=== PATIENT | male | born 1960 | race Caucasian/White ===

== ENCOUNTER 2023-11-12 08:45 | Outpatient (OUT) | payer MEDICARE, OTHER, SELFPAY ==
--- NOTE | 2023-11-12 09:42 | CA_ITS ---
Patient Name: TIFFANIE DANIEL MR#: [id number] : 1960 Exam Date: 11/12/2023 Ordering Doctor: DR AKOSUA SAUCEDO M.D. ECHOCARDIOGRAM REPORT PROCEDURE: CA ECHO DOPPLER COMPLETE INDICATIONS: Hypertensive heart disease with heart failure, Abn EKG COMPARISON: None. DESCRIPTION: COMPLETE ECHOCARDIOGRAM Real-time transthoracic echocardiography with 2D, M-mode, spectral and color flow Doppler performed. QUALITY: Technical quality was good. LEFT VENTRICLE: Normal chamber size. Normal left ventricular wall thickness. LV EF: Global left ventricular systolic function is normal. Visual estimation of left ventricular ejection fraction is 65%. DIASTOLIC: Normal diastolic function. ATRIAL SEPTUM: Inadequately seen. LEFT ATRIUM: Normal chamber size. RIGHT ATRIUM: Normal chamber size. RIGHT VENTRICLE: Normal chamber size. Normal right ventricular systolic function. TRICUSPID VALVE: Normal mobility and thickness. No stenosis with trivial regurgitation. No evidence of pulmonary hypertension. RVSP 18mmHg MITRAL VALVE: Normal mobility and thickness. No evidence of mitral valve stenosis. There is no mitral annular calcification. Trivial mitral regurgitation. AORTIC VALVE: Normal trileaflet appearance. Mildly calcified aortic valve. Normal leaflet mobility. No evidence of aortic valve stenosis. No aortic regurgitation. AORTIC ROOT: Normal diameter and appearance. PULMONIC VALVE: Normal thickness and mobility. No stenosis. Trivial regurgitation. PERICARDIUM: No evidence of pericardial effusion. IVC: Not well visualized. CONCLUSION: 1. Global left ventricular systolic function is normal; visually estimated ejection fraction is 60 to 65% 2. Normal right ventricular size and systolic function 3. Normal diastolic function 4. No significant valvular abnormalities Adult Echocardiography Procedure Report Left Ventricle LVEDD (3.7 - 5.6 cm): 3.53 cm LVESD (2.2 - 4.0 cm): 2.57 cm LVIVS thickness (0.6 - 1.2 cm): 1.10 cm LVPW thickness (0.5 - 1.0 cm): 0.97 cm e': 0.09 m/s E - e': 5.78 LVOT Max Gradient: 3.18 mm[Hg] LVOT Area (cm2): 0.89 m/s Peak Velocity (LVOT): 0.89 m/s Mean Velocity (LVOT): 0.53 m/s LVOT Diameter 2.35 cm Left Ventricular Ejection Fraction: 72.03 % Left Atrium LA Volume Index (2D A2C): 19.18 ml/m2 Left Atrium Systolic Dimension: 3.95 cm Mitral Valve MV E to A Ratio: 0.87 Mitral Valve A-Wave Peak Velocity: 0.60 m/s Mitral Valve E-Wave Peak Velocity: 0.52 m/s Right Ventricle RV Internal Diastolic Dimension: 3.34 cm Aorta AO Root Diam: 3.28 cm Ascending Ao Diam: 2.94 cm Aortic Valve AoV Area (Peak Moises): 3.68 cm2, 3.68 cm2 AoV Area (VTI): 3.60 cm2, 3.60 cm2 Peak Velocity(Antegrade Flow): 1.05 m/s Peak Gradient(Antegrade Flow): 4.45 mm[Hg] Mean Velocity(Antegrade Flow): 0.65 m/s Mean Gradient(Antegrade Flow): 2.00 mm[Hg] Velocity Time Integral: 22.16 cm Tricuspid Valve Peak Velocity (Regurgitant Flow): 1.97 m/s, 1.95 m/s, 1.85 m/s Pulmonic Valve Mean Gradient: 1.83 mm[Hg], 1.98 mm[Hg] Mean Velocity: 0.63 m/s, 0.65 m/s Peak Velocity: 0.95 m/s Peak Gradient: 3.47 mm[Hg], 3.74 mm[Hg] Right Atrium Right Atrium Systolic Pressure: 47.59 ml, 47.59 ml Dictated by: Akosua Saucedo M.D. on 11/13/2023 at 13:03 Approved by: Akosua Saucedo M.D. on 11/13/2023 at 13:08
[2023-11-12 10:28] LABS: Chol HDL Ratio 4.7; Cholesterol 164 mg/dL (<=200); HDL Cholesterol 35 mg/dL (40-60); Triglycerides 376 mg/dL (<=150); VLDL CHOLESTEROL 75.2 mg/dL
[2023-11-13 17:16] LABS: Alanine Aminotransferase 36 U/L (16-63); Albumin Globulin Ratio 1.1; Albumin Level 3.7 g/dL (3.4-5.0); Alkaline Phosphatase 54 U/L (46-116); Aspartate Amino Transferase 19 U/L (15-37); Bilirubin Direct 0.1 mg/dL (0.0-0.2); Bilirubin Total 0.4 mg/dL (0.2-1.0); Globulin 3.5 g/dL; Total Protein 7.2 g/dL (6.4-8.2)
== END 2023-11-12 08:46 | disposition home or self-care (01) ==
LOC: CARD 08:46
PROVIDERS: PCP Family Medicine; Visit Provider Internal Medicine Interventional Cardiology
DX: R94.30 Abnormal result of cardiovascular function study, unspecified (principal); I11.0 Hypertensive heart disease with heart failure; I50.9 Heart failure, unspecified; E78.5 Hyperlipidemia, unspecified
CPT/HCPCS: 36415; 80061; 80076; 93306

== ENCOUNTER 2024-04-26 09:08 | Outpatient (OUT) | payer MEDICARE, OTHER, SELFPAY ==
--- OUTSIDE RECORDS SUMMARY | 2024-04-26 09:20 | XMS_ITS | CCD ---
Author Organization [facility] Care Team Providers Care Russian Language Professor Name Role Phone CHASE EHAB A Attending Unavailable ELTAHAWY, EHAB A Admitting Unavailable RAYA DYE Referring Unavailable RAYA DYE Primary Care Unavailable ELTAHAWY, DR ABAD Admitting Unavailable ELTAHAWY, DR ABAD Attending Unavailable HOY ., DR DOS SANTOS Primary Care Unavailable ELTAHAWY, DR ABAD Admitting Unavailable ELTAHAWY, DR ABAD Attending Unavailable HOY ., DR DOS SANTOS Primary Care Unavailable ELTAHAWY, DR ABAD Consulting Unavailable SIMA, RAKESH Admitting Unavailable SIMA, RAKESH Attending Unavailable HOY ., DR DOS SANTOS Primary Care Unavailable SIMA, RAKESH Consulting Unavailable SIMA, RAKESH Admitting Unavailable SIMA, RAKESH Attending Unavailable HOY ., DR DOS SANTOS Primary Care Unavailable SIMA, RAKESH Consulting Unavailable HOY ., DR DOS SANTOS Admitting Unavailable HOY ., DR DOS SANTOS Attending Unavailable HOY ., DR DOS SANTOS Primary Care Unavailable HOY ., DR DOS SANTOS Consulting Unavailable ELTAHAWY, DR ABAD Admitting Unavailable ELTAHAWY, DR ABAD Attending Unavailable HOY ., DR DOS SANTOS Primary Care Unavailable HOY ., DR DOS SANTOS Admitting Unavailable HOY ., DR DOS SANTOS Attending Unavailable HOY ., DR DOS SANTOS Primary Care Unavailable HOY ., DR DOS SANTOS Consulting Unavailable Scally, Belkis Unavailable ELTAHAWY, ADITYAAB Attending Unavailable SIMA, RAKESH Attending Unavailable ELTAHAWY, ADITYAAB Attending Unavailable ELTAHAWY, EHAB Attending Unavailable Hoy, Raya M Primary Care Unavailable Scally, Belkis C Attending Unavailable Scally, Belkis C Admitting Unavailable Medications Current Medications Medication Drug Class(es) Dates Sig (Normalized) Sig (Original) aspirin 81 mg chewable tablet (7 sources) Platelet Aggregation Inhibitor, Nonsteroidal Anti-inflammatory Drug Start: 12-10-2023 take 81 mg by mouth once daily Aspirin Active 81 MG PO Daily December 10, 2023 1:00am take 1 tablet by gabby th every twenty-four hours Aspirin 81 81 MG 1 tablet Orally Once a day Active take 1 tablet by mouth once vonda y Aspirin 81 81 MG 1 tablet Orally Once a day Active blood sugar diagnostic (Bloo d Glucose Test) (3 sources) Start: 12-10-2023 blood sugar di agnostic (Blood Glucose Test) Active .Route December 10, 2023 1:00am Start: 12-10-2023 blood sugar di agnostic (Blood Glucose Test) Active .Route December 10, 2023 12:00am Start: 12-10-2023 blood sugar di agnostic (Blood Glucose Test) Active .ROUTE December 10, 2023 12:00am carvedilol 25 mg oral tablet (7 sources) alpha-Adrenergic Adriano, beta-Adrenergic Adriano Start: 12-10-2023 take 25 mg by mouth twice daily Carvedilol Active 25 MG PO Twice daily December 10, 2023 1:00am take 1 tablet by gabby th every twelve hours Carvedilol 25 MG 1 tablet with food Oral ly Twice a day Active empagliflozin 25 mg oral tablet (12 sources) Sodium-Glucose Cotransporter 2 Inhibitor Start: 12-10-2023 End: 03-17-2024 take 1 tablet by mouth once daily Empagliflozin (Jardiance) 25 mg tablet Active 25 MG PO Daily 90 March 17, 2024 8:28am Start: 05-28-2023 take 1 tablet by gabby th every twenty-four hours Jardiance 10 MG 1 tablet Orally Once a day for 14 days samples May, Active Start: 05-28-2023 take 1 tablet by gabby th every twenty-four hours Jardiance 25 MG 1 tablet Orally Once a day for 30 days Started on samples May, Active levothyroxine sodium 0.025 mg oral tablet (7 sources) l-Thyroxine Start: 12-10-2023 take 25 ug by mouth once daily Levothyroxine Active 25 MCG PO Daily December 10, 2023 1:00am take 1 tablet by gabby th once daily in the morning Levothyroxine Sodium 25 MCG 1 tablet in the morning on an empty stomach Orally Once a day Active take 1 tablet by gabby th once daily in the morning Levothyroxine Sodium 25 MCG 1 tablet in the morning on an empty stomach Orally Once a day Active liothyronine sodium 0.005 mg oral tablet (7 sources) l-Triiodothyronine Start: 12-10-2023 take 5 ug by mouth once daily Liothyronine Active 5 MCG PO Daily December 10, 2023 1:00am take 1 tablet by gabby th every twenty-four hours Liothyronine Sodium 5 MCG 1 tablet on an empty stomach Orally Once a day Active take 1 tablet by gabby th every twenty-four hours Liothyronine Sodium 5 MCG 1 tablet on an empty stomach Orally Once a day Active losartan potassium 50 mg oral tablet (7 sources) Angiotensin 2 Receptor Adriano Start: 12-10-2023 take 50 mg by mouth once daily Losartan Active 50 MG PO Daily December 10, 2023 1:00am take 1 tablet by gabby th every twenty-four hours Losartan Potassium 50 MG 1 tablet Orally Once a day Active metFORMIN hydrochloride 500 mg oral tablet (8 sources) Biguanide Start: 12-10-2023 End: 03-17-2024 take 500 mg by mouth twice daily Metformin Active 500 MG PO Twice daily 180 90 March 17, 2024 8:29am take 1 tablet by gabby th every twelve hours metFORMIN HCl 500 MG 1 tablet with a jamal l Orally bid Active Problems Problem Classification Problem Date Documented Date Episodic/Chronic Administrative/social admission (6 sources) Dietary counseling and surveillance; Translations: [Patient encounter status] Episodic Coronary atherosclerosis and other heart disease (6 sources) Atherosclerotic heart disease of [place] coronary artery without angina pectoris; Translations: [ASHD ALUTIIQ CA W/O ANGINA PECTORIS] Onset: 11-11-2022 Chronic Diabetes mellitus with complications (12 sources) Hyperglycemia due to type 2 diabetes mellitus; Translations: [Type 2 diabetes mellitus with hyperglycemia] Onset: 09-02-2023 Chronic Diabetes mellitus without complication (8 sources) Type 2 diabetes mellitus; Translations: [Type 2 diabetes mellitus without complications] 12-11-2023 Chronic Disorders of lipid metabolism (20 sources) Hyperlipidemia, unspecified; Translations: [Hyperlipidemia] Onset: 08-28-2022 Chronic Essential hypertension (17 sources) Essential (primary) hypertension; Translations: [Essential hypertension] Onset: 10-16-2022 Chronic Nutritional deficiencies (10 sources) Vitamin D deficiency; Translations: [Vitamin D deficiency, unspecified] Chronic Other nutritional; endocrine; and metabolic disorders (3 sources) Obese class II; Translations: [Body mass index (BMI) 37.0-37.9, adult] Chronic Other nutritional; endocrine; and metabolic disorders (3 sources) Body mass index (BMI) 37.0-37.9, adult; Translations: [Body Mass Index 37.0-37.9, adult] Chronic Other nutritional; endocrine; and metabolic disorders (2 sources) Obesity, unspecified; Translations: [Obesity, unspecified] Onset: 08-28-2022 Chronic Other nutritional; endocrine; and metabolic disorders (3 sources) Body mass index 30+ - obesity; Translations: [Body mass index (BMI) 37.0-37.9, adult] 12-10-2023 Chronic Other screening for suspected conditions (not mental disorders or infectious disease) (1 source) Encounter for screening for malignant neoplasm of prostate; Translations: [ENC SCREEN MALIG NEOPLASM PROSTATE] Onset: 02-15-2023 Episodic Thyroid disorders (4 sources) Hypothyroidism; Translations: [Hypothyroidism, unspecified] 12-10-2023 Chronic Results Test Name Value Interpretation Reference Range Facility Provider Letteron 03-16-2024 Provider Letter March 16, 2024 TIFFANIE MCKNIGHT [address] [place] [id number] : 1960 Dear Mr. Mcknight, We have been trying to reach you with no success regarding a referral from Dr Dye. It is important that you return our call upon receiving this letter. Also, at the time of your call, please provide us with your current information. Thank you for your prompt attention to this matter. Sincerely, [facility] General Surgery [phone] [facility] Physician Referralon 024 Physician Referral [phone] [id number] [id number] [facility] Physician Referralon 024 Physician Referral [id number] DD#[id number] [facility] Office Visiton 11-10-2023 Follow-up visit [id number] Tiffanie Mcknight 1960 M Date Provider Department Center 11/10/2023 271-CHASE, AKOSUA [facility]ARD [facility] Family History Problem Relation Age of Onset Atrial fibrillation Mother Other Mother Hypertension Mother Cardiomyopathy Mother Coronary artery disease Mother Stroke Mother Hyperlipidemia Mother Coronary artery disease Father Other Father Family Status - Relation Status Age at Mother Father Level of Service:20015 [place] OFFICE/OUTPATIENT ESTABLISHED MOD MDM 30 MIN Normal [facility] A1C HEMOGLOBINon 09-02-2023 HbA1c (Bld) [Mass fraction] 6.9 % [employer] Other Glucose - FINGER STICKon Glucose [Mass/Vol] 240 mg/dL [employer] Other HbA1c (Bld) [Mass fraction]o n 09-02-2023 A1C HEMOGLOBIN [facility] [employer] Other Glucose - FINGER STICKon Glucose [Mass/Vol] 151 mg/dL [employer] Other MicroAlb Creat Ratio,Uon Albumin DL <= 20 mg/L (U) [Mass/Vol] 1.9064149 mg/dL Normal 0.0-1.8 mg/dL [employer] Other Albumin/Creatinine DL <= 20 mg/L (U) [Mass ratio] 20.139962 mg/g Normal 0.0-30.0 mg/g [employer] Other Creatinine (U) [Mass/Vol] 65.1754362 mg/dL High 14.0-26.0 mg/dL [employer] Other Albumin DL <= 20 mg/L (U) [Mass/Vol] 1.3 mg/dL Normal 0.0-1.8 [facility] Comment on above: Order Comment: Reaso n for Exam Type 2 diabetes mellitus with hyperglycemia, without long-te Performed By: #### U RMACRERAT #### [address] Creatinine, Urine (Random) 65.0 mg/dL High 14.0-26.0 [facility] Comment on above: Order Comment: Reaso n for Exam Type 2 diabetes mellitus with hyperglycemia, without long-te Performed By: #### U RMACRERAT #### [facility] [address] Microalbumin/Creatin ine Ratio 20.0 mg/g Normal 0.0-30.0 [facility] Comment on above: Order Comment: Reaso n for Exam Type 2 diabetes mellitus with hyperglycemia, without long-te Result Comment: 30-3 00 mg/g indicates an increased risk for diabetic nephropathy. Greater than 300 mg/g is consistent with clinical nephropathy. (Am. J. Kidney Disease 1995, 25:107) PERFORMED BY: [facility] [address] [place] [address] PATHOLOGIST QUALITY INSPECTOR VICK MARTE M.D. Performed By: #### U RMACRERAT #### [facility] [address] [id number] [facility] 05-19-2023 36 Patient's insurance switched since turning 63 recently. His Vascepa now costs him over $500. Is there something else you'd like him to take? Please advise. Thanks. Normal [facility] Office Visiton 04-14-2023 Follow-up visit [id number] Tiffanie Mcknight 1960 Date Provider Department Center 04/14/2023 [facility]-AKOSUA SAUCEDO CARD [facility] Family History Problem Relation Age of Onset Atrial fibrillation Mother Other Mother Hypertension Mother Cardiomyopathy Mother Coronary artery disease Mother Stroke Mother Hyperlipidemia Mother Coronary artery disease Father Other Father Family Status - Relation Status Age at Mother Father Level of Service:84041 [place] OFFICE/OUTPATIENT ESTABLISHED LOW MDM 20-29 MIN Normal [facility] OCC BLD IMMUNO SCREENon OCCULT BLOOD Negative Normal NEGATIVE [facility] Comment on above: Performed By: #### O BSCRN #### [facility] [address] [address] [address] Lauryn Chapman INSULINon 02-13-2023 Insulin 45.1 uIU/mL Critically high 2.6-24.9 [facility] Comment on above: Performed By: #### I NSULIN #### [facility] [address] [place] [address] Dr. Lauryn Chapman CBC AUTO DIFFon 02-12-2023 BASO # 0.1 103/ul Normal 0.0-0.1 [facility] Comment on above: Performed By: #### O BSCRN #### [facility] [address] [place] [address] Dr. Lauryn Chapman Basophils/100 WBC (Bld) 0.8 % Normal 0.2-2.0 [facility] Comment on above: Performed By: #### O BSCRN #### [facility] [address] [place] [address] Dr. Lauryn Chapman EO # 0.1 103/ul Normal 0.0-0.7 [facility] Comment on above: Performed By: #### O BSCRN #### [facility] [address] [place] [address] Dr. Lauryn Chapman Eosinophils/100 WBC (Bld) 1.9 % Normal 0.9-7.0 [facility] Comment on above: Performed By: #### O BSCRN #### [facility] [address] [place] [address] Dr. Lauryn Chapman Erythrocyte distribution width (RBC) [Ratio] 17.4 % Critically high 11.0-15.0 [facility] Comment on above: Performed By: #### O BSCRN #### [facility] [address] [place] [address] Dr. Lauryn Chapman Hematocrit (Bld) [Volume fraction] 49.5 % Normal 42.0-54.0 [facility] Comment on above: Performed By: #### O BSCRN #### [facility] [address] [place] [address] Dr. Lauryn Chapman Hemoglobin (Bld) [Mass/Vol] 15.6 g/dL Normal 14.0-18.0 [facility] Comment on above: Performed By: #### O BSCRN #### [facility] [address] [place] [address] Dr. Lauryn Chapman IG # 0.03 10e3/ul Normal 0.00-0.03 [facility] Comment on above: Performed By: #### O BSCRN #### [facility] [address] [place] [address] Dr. Lauryn Chapman IG % 0.4 % Normal 0.0-0.5 [facility] Comment on above: Performed By: #### O BSCRN #### [facility] [address] [address] [address] Lauryn Chapman LYMPH # 1.9 103/ul Normal 1.2-3.8 [facility] Comment on above: Performed By: #### O BSCRN #### [facility] [address] [place] [address] Dr. Lauryn Chapman Lymphocytes/100 WBC (Bld) 25.7 % Normal 20.5-60.0 [facility] Comment on above: Performed By: #### O BSCRN #### [facility] [address] [place] [address] Dr. Lauryn Chapman MANUAL DIFF REQ NO Normal [facility] Comment on above: Performed By: #### O BSCRN #### [facility] [address] [place] [address] Dr. Lauryn Chapman MCH (RBC) [Entitic mass] 23.6 pg Critically low 25.9-34.0 [facility] Comment on above: Performed By: #### O BSCRN #### [facility] [address] [place] [address] Dr. Lauryn Chapman MCHC (RBC) [Mass/Vol] 31.5 g/dL Normal 29.9-35.2 [facility] Comment on above: Performed By: #### O BSCRN #### [facility] [address] [place] [address] Dr. Lauryn Chapman MCV (RBC) [Entitic vol] 74.8 fL Critically low 80.0-94.0 [facility] Comment on above: Performed By: #### O BSCRN #### [facility] [address] [place] [address] Dr. Lauryn Chapman MONO # 0.5 103/ul Normal 0.3-0.8 [facility] Comment on above: Performed By: #### O BSCRN #### [facility] [address] [place] [address] Dr. Lauryn Chapman Monocytes/100 WBC (Bld) 7.3 % Normal 1.7-12.0 [facility] Comment on above: Performed By: #### O BSCRN #### [facility] [address] [place] [address] Dr. Lauryn Chapman NEUT # 4.7 103/ul Normal 1.4-6.5 [facility] Comment on above: Performed By: #### O BSCRN #### [facility] [address] [place] [address] Dr. Lauryn Chapman Neutrophils/100 WBC (Bld) 63.9 % Normal 43.0-75.0 [facility] Comment on above: Performed By: #### O BSCRN #### [facility] [address] [place] [address] Dr. Lauryn Chapman Platelet mean volume (Bld) [Entitic vol] 9.5 fL Normal 9.5-13.5 [facility] Comment on above: Performed By: #### O BSCRN #### [facility] [address] [place] [address] Dr. Lauryn Chapman PLT 188 103/ul Normal 150-450 [facility] Comment on above: Performed By: #### O BSCRN #### [facility] [address] [place] [address] Dr. Lauryn Chapman RBC 6.62 106/ul Critically high 4.70-6.10 [facility] Comment on above: Performed By: #### O BSCRN #### [facility] [address] [place] [address] Dr. Lauryn Chapman WBC 7.4 103/ul Normal 4.0-11.0 [facility] Comment on above: Performed By: #### O BSCRN #### [facility] [address] [place] [address] Dr. Lauryn Chapman DIRECT LDLon 02-12-2023 Cholesterol in LDL [Mass/Vol] 69 mg/dL Normal [facility] Comment on above: Performed By: #### T SH, LIPID, T7, CMP, DLDL, URIC #### [facility] [address] [address] [address] Lauryn Chapman DLDL NORMAL SEE BELOW Normal [facility] Comment on above: Result Comment: <100 mg/dl OPTIMAL 100 - 129 mg/dl NEAR OR ABOVE OPTIMAL 130 - 159 mg/dl BORDERLINE HIGH 160 - 189 mg/dl HIGH >190 mg/dl VERY HIGH Performed By: #### T SH, LIPID, T7, CMP, DLDL, URIC #### [facility] [address] [address] [address] Lauryn Chapman FREE THYROXINE INDEX T7on FTI 2.41 Normal 1.30-4.50 [facility] Comment on above: Performed By: #### O BSCRN #### [facility] [address] [place] [address] Dr. Lauryn Chapman T3U 29.0 % Critically low 33.0-40.0 [facility] Comment on above: Performed By: #### O BSCRN #### [facility] [address] [address] [address] Lauryn Chapman T4 [Mass/Vol] 8.30 ug/dL Normal 4.50-12.[address] [facility] Comment on above: Performed By: #### O BSCRN #### [facility] [address] [place] [address] Dr. Lauryn Chapman GLYCOHEMOGLOBIN A1Con 2022 ADA RECOMMENDATION SEE BELOW Normal [facility] Comment on above: Result Comment: ADA RECOMMENDED LIMIT 4.0 - 6.0 ADA THERAPEUTIC TARGET < 7.0 ACTION SUGGESTED > 7.0 Performed By: #### A 1C #### [facility] [address] [place] [address] Dr. Lauryn Chapman Glucose [Mass/Vol] 177 mg/dL Normal [facility] Comment on above: Performed By: #### A 1C #### [facility] [address] [place] [address] Dr. Lauryn Chapman HbA1c (Bld) [Mass fraction] 7.8 % Critically high 4.5-6.2 [facility] Comment on above: Performed By: #### A 1C #### [facility] [address] [place] [address] Dr. Lauryn Chapman LIPID PROFILEon 02-12-2023 CHOL-HDL RATIO NORM SEE BELOW Normal [facility] Comment on above: Result Comment: 3.3 - 4.4 LOW RISK 4.4 - 7.1 AVERAGE RISK 7.1 - 11.0 MODERATE RISK >11.0 HIGH RISK Performed By: #### T SH, LIPID, T7, CMP, DLDL, URIC #### [facility] [address] [place] [address] Dr. Lauryn Chapman Cholesterol [Mass/Vol] 186 mg/dL Normal <=200 [facility] Comment on above: Performed By: #### T SH, LIPID, T7, CMP, DLDL, URIC #### [facility] [address] [place] [address] Dr. Lauryn Chapman Cholesterol in HDL [Mass/Vol] 33 mg/dL Critically low 40-60 [facility] Comment on above: Performed By: #### T SH, LIPID, T7, CMP, DLDL, URIC #### [facility] [address] [place] [address] Dr. Lauryn Chapman Cholesterol.total/Ch olesterol in HDL [Mass ratio] 5.6 {ratio} Normal [facility] Comment on above: Performed By: #### T SH, LIPID, T7, CMP, DLDL, URIC #### [facility] [address] [place] [address] Dr. Lauryn Chapman HDL NORMAL > or = 60 mg/dl - LOW CARDIOVASCULAR RISK <40 mg/dl - HIGH CARDIOVASCULAR RISK Normal [facility] Comment on above: Performed By: #### T SH, LIPID, T7, CMP, DLDL, URIC #### [facility] [address] [place] [address] Dr. Lauryn Chapman Triglyceride [Mass/Vol] 699 mg/dL Critically high <=150 [facility] Comment on above: Performed By: #### T SH, LIPID, T7, CMP, DLDL, URIC #### [facility] [address] [address] [address] Lauryn Chapman VLDL CALC 139.8 mg/dL Normal [facility] Comment on above: Performed By: #### T SH, LIPID, T7, CMP, DLDL, URIC #### [facility] [address] [place] [address] Dr. Lauryn Chapman PROF 14(COMP METB)on 023 Albumin [Mass/Vol] 3.9 g/dL Normal 3.4-5.0 [facility] Comment on above: Performed By: #### T SH, LIPID, T7, CMP, DLDL, URIC #### [facility] [address] [place] [address] Dr. Lauryn Chapman Albumin/Globulin [Mass ratio] 1.0 {ratio} Normal [facility] Comment on above: Performed By: #### T SH, LIPID, T7, CMP, DLDL, URIC #### [facility] [address] [place] [address] Dr. Lauryn Chapman ALP [Catalytic activity/Vol] 71 U/L Normal 46-116 [facility] Comment on above: Performed By: #### T SH, LIPID, T7, CMP, DLDL, URIC #### [facility] [address] [place] [address] Dr. Lauryn Chapman ALT [Catalytic activity/Vol] 62 U/L Normal 16-63 [facility] Comment on above: Performed By: #### T SH, LIPID, T7, CMP, DLDL, URIC #### [facility] [address] [place] [address] Dr. Lauryn Chapman Anion gap [Moles/Vol] 14.2 mmol/L Normal [facility] Comment on above: Performed By: #### T SH, LIPID, T7, CMP, DLDL, URIC #### [facility] [address] [place] [address] Dr. Lauryn Chapman AST [Catalytic activity/Vol] 30 U/L Normal 15-37 [facility] Comment on above: Performed By: #### T SH, LIPID, T7, CMP, DLDL, URIC #### [facility] [address] [address] [address] Lauryn Chapman Bilirubin [Mass/Vol] 0.6 mg/dL Normal 0.2-1.0 [facility] Comment on above: Performed By: #### T SH, LIPID, T7, CMP, DLDL, URIC #### [facility] [address] [address] [address] Lauryn Chapman Calcium [Mass/Vol] 9.3 mg/dL Normal 8.5-10.1 [facility] Comment on above: Performed By: #### T SH, LIPID, T7, CMP, DLDL, URIC #### [facility] [address] [place] [address] Dr. Lauryn Chapman Chloride [Moles/Vol] 99 mmol/L Normal 98-107 [facility] Comment on above: Performed By: #### T SH, LIPID, T7, CMP, DLDL, URIC #### [facility] [address] [place] [address] Dr. Lauryn Chapman CO2 [Moles/Vol] 27.1 mmol/L Normal 21.0-32.0 [facility] Comment on above: Performed By: #### T SH, LIPID, T7, CMP, DLDL, URIC #### [facility] [address] [place] [address] Dr. Lauryn Chapman Creatinine [Mass/Vol] 1.06 mg/dL Normal 0.70-1.30 [facility] Comment on above: Performed By: #### T SH, LIPID, T7, CMP, DLDL, URIC #### [facility] [address] [place] [address] Dr. Lauryn Chapman EGFR-AF MONTENEGRIN >60 Normal >=60 [facility] Comment on above: Performed By: #### T SH, LIPID, T7, CMP, DLDL, URIC #### [facility] [address] [place] [address] Dr. Lauryn Chapman EGFR-NON AF MONTENEGRIN >60 Normal >=60 [facility] Comment on above: Performed By: #### T SH, LIPID, T7, CMP, DLDL, URIC #### [facility] [address] [place] [address] Dr. Lauryn Chapman Globulin (S) [Mass/Vol] 3.9 g/dL Normal [facility] Comment on above: Performed By: #### T SH, LIPID, T7, CMP, DLDL, URIC #### [facility] [address] [place] [address] Dr. Lauryn Chapman Glucose [Mass/Vol] 167 mg/dL Critically high 74-106 [facility] Comment on above: Performed By: #### T SH, LIPID, T7, CMP, DLDL, URIC #### [facility] [address] [place] [address] Dr. Lauryn Chapman Potassium [Moles/Vol] 4.3 mmol/L Normal 3.5-5.1 [facility] Comment on above: Performed By: #### T SH, LIPID, T7, CMP, DLDL, URIC #### [facility] [address] [place] [address] Dr. Lauryn Chapman Protein [Mass/Vol] 7.8 g/dL Normal 6.4-8.2 [facility] Comment on above: Performed By: #### T SH, LIPID, T7, CMP, DLDL, URIC #### [facility] [address] [place] [address] Dr. Lauryn Chapman Sodium [Moles/Vol] 136 mmol/L Normal 136-145 [facility] Comment on above: Performed By: #### T SH, LIPID, T7, CMP, DLDL, URIC #### [facility] [address] [place] [address] Dr. Lauryn Chapman Urea nitrogen [Mass/Vol] 20.0 mg/dL Critically high 7.0-18.0 [facility] Comment on above: Performed By: #### T SH, LIPID, T7, CMP, DLDL, URIC #### [facility] [address] [place] [address] Dr. Lauryn Chapman Urea nitrogen/Creatinine [Mass ratio] 18.9 mg/mg Normal [facility] Comment on above: Performed By: #### T SH, LIPID, T7, CMP, DLDL, URIC #### [facility] [address] [address] [address] Lauryn Chapman TSHon 02-12-2023 TSH 6.440 uIU/mL Critically high 0.358-3.740 [facility] Comment on above: Performed By: #### O BSCRN #### [facility] [address] [address] [address] Lauryn Chapman URIC ACID SERUMon 02-12-2023 Urate [Mass/Vol] 9.6 mg/dL Critically high 3.5-7.2 [facility] Comment on above: Performed By: #### T SH, LIPID, T7, CMP, DLDL, URIC #### [facility] [address] [address] [address] Lauryn Chapman Office Visiton 01-29-2023 Follow-up visit [id number] Tiffanie Mcknight 1960 M Date Provider Department [place] 01/29/2023 Braxton-AKOSUA SAUCEDO [facility] Family History Problem Relation Age of Onset Atrial fibrillation Mother Other Mother Hypertension Mother Cardiomyopathy Mother Coronary artery disease Mother Stroke Mother Hyperlipidemia Mother Coronary artery disease Father Other Father Family Status - Relation Status Age at Mother Father Level of Service:89492 [place] OFFICE/OUTPATIENT ESTABLISHED MOD MDM 30-39 MIN Reason for Visit and Comments: Hypertension [431704] Coronary Artery Disease [187] Hyperlipidemia [182] Normal [facility] 36on 11-29-2022 36 Starting 11/11/22 118/70 164/65 147/90 178/121 191/122 162/99 172/104 163/103 169/84 195/120 170/111 178/120 184/112 188/105 212/104 180/104 149/94 Majority of these values were been taken BEFORE meds. So I advised patient to call us back in 2 weeks with BP's checked 1-2 hours AFTER medications. Normal [facility] 36on 11-28-2022 36 lm Normal [facility] PROF CHEM 8 (BAS METB)on Anion gap [Moles/Vol] 16.1 mmol/L [facility] Comment on above: Performed By: #### O BSCRN #### [facility] [address] [address] [address] Lauryn Chapman Calcium [Mass/Vol] 8.8 mg/dL Normal 8.5-10.1 [facility] Comment on above: Performed By: #### O BSCRN #### [facility] [address] [address] [address] Lauryn Chapman Chloride [Moles/Vol] 104 mmol/L Normal 98-107 [facility] Comment on above: Performed By: #### O BSCRN #### [facility] [address] [address] [address] Lauryn Chapman CO2 [Moles/Vol] 22.4 mmol/L Normal 21.0-32.0 [facility] Comment on above: Performed By: #### O BSCRN #### [facility] [address] [place] [address] Dr. Lauryn Chapman Creatinine [Mass/Vol] 0.79 mg/dL Normal 0.70-1.30 [facility] Comment on above: Performed By: #### O BSCRN #### [facility] [address] [place] [address] Dr. Lauryn Chapman EGFR-AF MONTENEGRIN >60 Normal >=60 [facility] Comment on above: Performed By: #### O BSCRN #### [facility] [address] [place] [address] Dr. Lauryn Chapman EGFR-NON AF MONTENEGRIN >60 Normal >=60 [facility] Comment on above: Performed By: #### O BSCRN #### [facility] [address] [address] [address] Lauryn Chapman Glucose [Mass/Vol] 169 mg/dL Critically high 74-106 [facility] Comment on above: Performed By: #### O BSCRN #### [facility] [address] [address] [address] Lauryn Chapman Potassium [Moles/Vol] 4.5 mmol/L Normal 3.5-5.1 [facility] Comment on above: Performed By: #### O BSCRN #### [facility] [address] [address] [address] Lauryn Chapman Sodium [Moles/Vol] 138 mmol/L Normal 136-145 [facility] Comment on above: Performed By: #### O BSCRN #### [facility] [address] [address] [address] Lauryn Chapman Urea nitrogen [Mass/Vol] 12.0 mg/dL Normal 7.0-18.0 [facility] Comment on above: Performed By: #### O BSCRN #### [facility] [address] [address] [address] Lauryn Chapman Urea nitrogen/Creatinine [Mass ratio] 15.2 mg/mg Normal [facility] Comment on above: Performed By: #### O BSCRN #### [facility] [address] [address] [address] Lauryn Chapman 37on 11-11-2022 37 Increase losartan to 75 mg daily- 1 1/2 tabs until next prescription is filled- next bottle will be the 75 mg tabs Have blood work done 1 week after increased dose of losartan Normal [facility] Office Visiton 11-11-2022 Follow-up visit [id number] Tiffanie Mcknight 1960 M Date Provider Department Center 11/11/2022 RAKESH BAIG [facility] Family History Problem Relation Age of Onset Atrial fibrillation Mother Other Mother Hypertension Mother Cardiomyopathy Mother Coronary artery disease Mother Stroke Mother Hyperlipidemia Mother Coronary artery disease Father Other Father Family Status - Relation Status Age at Mother Father Level of Service:63751 [place] OFFICE/OUTPATIENT ESTABLISHED MOD MDM 30-39 MIN Reason for Visit and Comments: Hypertension [244440] Normal [facility] PROF CHEM 8 (BAS METB)on Anion gap [Moles/Vol] 19.7 mmol/L Normal [facility] Comment on above: Performed By: #### O BSCRN #### [facility] [address] [address] [address] Lauryn Chapman Calcium [Mass/Vol] 8.8 mg/dL Normal 8.5-10.1 [facility] Comment on above: Performed By: #### O BSCRN #### [facility] [address] [address] [address] Lauryn Chapman Chloride [Moles/Vol] 103 mmol/L Normal 98-107 [facility] Comment on above: Performed By: #### O BSCRN #### [facility] [address] [address] [address] Lauryn Chapman CO2 [Moles/Vol] 20.1 mmol/L Critically low 21.0-32.0 [facility] Comment on above: Performed By: #### O BSCRN #### [facility] [address] [address] [address] Lauryn Chapman Creatinine [Mass/Vol] 0.87 mg/dL Normal 0.70-1.30 [facility] Comment on above: Performed By: #### O BSCRN #### [facility] [address] [address] [address] Lauryn Chapman EGFR-AF MONTENEGRIN >60 Normal >=60 [facility] Comment on above: Performed By: #### O BSCRN #### [facility] [address] [address] [address] Lauryn Chapman EGFR-NON AF MONTENEGRIN >60 Normal >=60 [facility] Comment on above: Performed By: #### O BSCRN #### [facility] [address] [address] [address] Lauryn Chapman Glucose [Mass/Vol] 170 mg/dL Critically high 74-106 [facility] Comment on above: Performed By: #### O BSCRN #### [facility] [address] [address] [address] Lauryn Chapman Potassium [Moles/Vol] 4.8 mmol/L Normal 3.5-5.1 [facility] Comment on above: Performed By: #### O BSCRN #### [facility] [address] [address] [address] Lauryn Chapman Sodium [Moles/Vol] 138 mmol/L Normal 136-145 [facility] Comment on above: Performed By: #### O BSCRN #### [facility] [address] [address] [address] Lauryn Chapman Urea nitrogen [Mass/Vol] 15.0 mg/dL Normal 7.0-18.0 [facility] Comment on above: Performed By: #### O BSCRN #### [facility] [address] [address] [address] Lauryn Chapman Urea nitrogen/Creatinine [Mass ratio] 17.2 mg/mg Normal [facility] Comment on above: Performed By: #### O BSCRN #### [facility] [address] [address] [address] Lauryn Chapman LIPID PROFILEon 08-28-2022 CHOL-HDL RATIO NORM SEE BELOW Normal [facility] Comment on above: Result Comment: 3.3 - 4.4 LOW RISK 4.4 - 7.1 AVERAGE RISK 7.1 - 11.0 MODERATE RISK >11.0 HIGH RISK Performed By: #### L FELICIA LIPID #### [facility] [address] [place] [address] Dr. Lauryn Chapman Cholesterol [Mass/Vol] 106 mg/dL Normal <=200 [facility] Comment on above: Performed By: #### L FELICIA LIPID #### [facility] [address] [place] [address] Dr. Lauryn Chapman Cholesterol in HDL [Mass/Vol] 33 mg/dL Critically low 40-60 [facility] Comment on above: Performed By: #### L FELICIA, LIPID #### [facility] [address] [address] [address] Lauryn Chapman Cholesterol in LDL [Mass/Vol] 30.2 mg/dL Normal [facility] Comment on above: Performed By: #### L IVLETTY, LIPID #### [facility] [address] [place] [address] Dr. Lauryn Chapman Cholesterol.total/Ch olesterol in HDL [Mass ratio] 3.2 {ratio} Normal [facility] Comment on above: Performed By: #### L IVLETTY, LIPID #### [facility] [address] [place] [address] Dr. Lauryn Chapman HDL NORMAL > or = 60 mg/dl - LOW CARDIOVASCULAR RISK <40 mg/dl - HIGH CARDIOVASCULAR RISK Normal [facility] Comment on above: Performed By: #### L IVER, LIPID #### [facility] [address] [address] [address] Lauryn Chapman LDL CALC NORMAL SEE BELOW Normal [facility] Comment on above: Result Comment: <100 mg/dl OPTIMAL 100 - 129 mg/dl NEAR OR ABOVE OPTIMAL 130 - 159 mg/dl BORDERLINE HIGH 160 - 189 mg/dl HIGH >190 mg/dl VERY HIGH Performed By: #### L IVER, LIPID #### [facility] [address] [address] [address] Lauryn Chapman Triglyceride [Mass/Vol] 214 mg/dL Critically high <=150 [facility] Comment on above: Performed By: #### L IVER, LIPID #### [facility] [address] [address] [address] Lauryn Chapman VLDL CALC 42.8 mg/dL Normal [facility] Comment on above: Performed By: #### L IVER, LIPID #### [facility] [address] [address] [address] Lauryn Chapman LIVER PROFILEon 08-28-2022 Albumin [Mass/Vol] 3.6 g/dL Normal 3.4-5.0 [facility] Comment on above: Performed By: #### L IVER, LIPID #### [facility] [address] [address] [address] Lauryn Chapman Albumin/Globulin [Mass ratio] 1.1 {ratio} Normal [facility] Comment on above: Performed By: #### L IVER, LIPID #### [facility] [address] [address] [address] Lauryn Chapman ALP [Catalytic activity/Vol] 73 U/L Normal 46-116 [facility] Comment on above: Performed By: #### L IVER, LIPID #### [facility] [address] [address] [address] Lauryn Chapman ALT [Catalytic activity/Vol] 48 U/L Normal 16-63 [facility] Comment on above: Performed By: #### L IVER, LIPID #### [facility] [address] [address] [address] Lauryn Chapman AST [Catalytic activity/Vol] 24 U/L Normal 15-37 [facility] Comment on above: Performed By: #### L IVER, LIPID #### [facility] [address] [place] [address] Dr. Lauryn Chapman BILI, CONJUGATED 0.1 mg/dL Normal 0.0-0.2 [facility] Comment on above: Performed By: #### L IVER, LIPID #### [facility] [address] [place] [address] Dr. Lauryn Chapman Bilirubin [Mass/Vol] 0.5 mg/dL Normal 0.2-1.0 [facility] Comment on above: Performed By: #### L IVER, LIPID #### [facility] [address] [place] [address] Dr. Lauryn Chapman Globulin (S) [Mass/Vol] 3.4 g/dL Normal [facility] Comment on above: Performed By: #### L IVER, LIPID #### [facility] [address] [place] [address] Dr. Lauryn Chapman Protein [Mass/Vol] 7.0 g/dL Normal 6.4-8.2 [facility] Comment on above: Performed By: #### L IVER, LIPID #### [facility] [address] [place] [address] Dr. Lauryn Chapman BASIC METABOLIC PANELon 12-18 Calcium [Mass/Vol] 8.3 mg/dL Low 8.6-10.3 [facility] Comment on above: Order Comment: No: D o not add to previous draw Performed By: #### 0 [id number] #### [facility] [address] [place] [address], [facility] Chloride [Moles/Vol] 109 mmol/L High 98-107 [facility] Comment on above: Order Comment: No: D o not add to previous draw Performed By: #### 0 0071 #### [facility] [address] [place] [address], [place] CO2 [Moles/Vol] 20 mmol/L Low 21-31 [facility] Comment on above: Order Comment: No: D o not add to previous draw Performed By: #### 0 0071 #### [facility] [address] [place] [address], [place] Creatinine [Mass/Vol] 0.76 mg/dL Normal 0.70-1.30 [facility] Comment on above: Order Comment: No: D o not add to previous draw Performed By: #### 0 0071 #### [facility] [address] [place] [address], [place] GFR/1.73 sq M.predicted among blacks MDRD (S/P/Bld) [Vol rate/Area] mL/min/{1.73_m2} Normal >60 [facility] Comment on above: Order Comment: No: D o not add to previous draw Performed By: #### 0 0071 #### [facility] [address] [place] [address], [place] GFR/1.73 sq M.predicted among non-blacks MDRD (S/P/Bld) [Vol rate/Area] mL/min/{1.73_m2} Normal >60 [facility] Comment on above: Order Comment: No: D o not add to previous draw Performed By: #### 0 0071 #### [facility] [address] [place] [address], [place] Glucose [Mass/Vol] 146 mg/dL High 70-100 [facility] Comment on above: Order Comment: No: D o not add to previous draw Performed By: #### 0 0071 #### [facility] [address] [place] [address], [place] Potassium [Moles/Vol] 4.0 mmol/L Normal 3.5-5.1 [facility] Comment on above: Order Comment: No: D o not add to previous draw Performed By: #### 0 0071 #### [facility] [address] [place] [address], [facility] Sodium [Moles/Vol] 136 mmol/L Normal 136-145 [facility] Comment on above: Order Comment: No: D o not add to previous draw Performed By: #### 0 0071 #### [facility] [address] [place] [address], [facility] Urea nitrogen [Mass/Vol] 12 mg/dL Normal 7-25 [facility] Comment on above: Order Comment: No: D o not add to previous draw Performed By: #### 0 0071 #### [facility] [address] [place] [address], [facility] CBC COMPLETE BLOOD COUNTon 0 - Erythrocyte distribution width (RBC) [Ratio] 16.8 % High 11.5-15.0 [facility] Comment on above: Order Comment: No: D o not add to previous draw Performed By: #### 5 [id number] #### [facility] [address] [place] [address], [facility] Hematocrit (Bld) [Volume fraction] 42.4 % Normal 39.0-50.0 [facility] Comment on above: Order Comment: No: D o not add to previous draw Performed By: #### 5 [id number] #### [facility] [address] [place] [address], [facility] Hemoglobin (Bld) [Mass/Vol] 13.6 g/dL Normal 13.0-17.0 [facility] Comment on above: Order Comment: No: D o not add to previous draw Performed By: #### 5 [id number] #### [facility] [address] [place] [address], [place] MCH (RBC) [Entitic mass] 23.8 pg Low 27.0-33.0 [facility] Comment on above: Order Comment: No: D o not add to previous draw Performed By: #### 5 [id number] #### [facility] [address] [place] [address], [facility] MCHC (RBC) [Mass/Vol] 32.1 g/dL Normal 32.0-35.0 [facility] Comment on above: Order Comment: No: D o not add to previous draw Performed By: #### 5 [id number] #### [facility] [address] [place] [address], [facility] MCV (RBC) [Entitic vol] 74.3 fL Low 82.0-98.0 [facility] Comment on above: Order Comment: No: D o not add to previous draw Performed By: #### 5 [id number] #### [facility] [address] Nucleated RBC/100 WBC (Bld) [Ratio] 0 % Normal 0-0 [facility] Comment on above: Order Comment: No: D o not add to previous draw Performed By: #### 5 [id number] #### [facility] [address] [place] [address], [facility] PLAT CNT 186 10*3/uL Normal 150-[address] [facility] Comment on above: Order Comment: No: D o not add to previous draw Performed By: #### 5 [id number] #### [facility] [address] [place] [address], [facility] RBC (Bld) [#/Vol] 5.71 10*6/uL High 4.20-5.70 [facility] Comment on above: Order Comment: No: D o not add to previous draw Performed By: #### 5 [id number] #### [facility] [address] [place] [address], [facility] WBC (Bld) [#/Vol] 6.12 10*3/uL Normal 4.00-10.60 [facility] Comment on above: Order Comment: No: D o not add to previous draw Performed By: #### 5 [id number] #### [facility] [address] [place] [address], [facility] Cardiovascular Lab Reporton 12-26-2021 Cardiovascular Lab Report [facility] Patient Name: Tiffanie Mcknight [facility] H[facility]ctor MR #: [id number] Physician: Akosua Saucedo, Department of M.D. Medicine Service Date: 12/26/2021 Division of Birthdate: 1960 Cardiology Room #: Adult Cardiovascular Services [facility] [address] [facility]. [place] [address] Cardiovascular Laboratory Report FINAL IMPRESSIONS: 1. Severe stenosis of the ostial left circumflex successfully treated by balloon angioplasty and Synergy drug-eluting stent placement. 2. Moderate proximal disease of the left anterior descending, non-hemodynamically significant as assessed by instantaneous wave free ratio (iFR). 3. Moderate disease of the right coronary artery. 4. Mildly reduced global left ventricular systolic function with segmental wall motion abnormalities by noninvasive imaging. RECOMMENDATIONS: 1. Aspirin 81 mg lifelong. 2. Plavix 75 mg daily for a minimum of 6 months. 3. Aggressive cardiovascular risk factor modification. 4. Optimization of medical management; initiate high-intensity statin therapy, continue beta adriano and angiotensin receptor adriano. 5. A fasting lipid profile and liver function tests will be needed in 6 to 8 weeks. 6. Follow up with Dr. Saucedo as scheduled. 7. Follow up with his family physician as scheduled. PROCEDURES: Bilateral selective coronary angiography via the left radial approach, instantaneous wave-free ratio of the left anterior descending coronary artery, percutaneous balloon angioplasty and Synergy drug-eluting stent placement of the left circumflex coronary artery. METHODS: After risks, benefits, and alternatives were explained, written informed consent was obtained. The patient was prepped and draped in usual sterile fashion over the left wrist and left groin. Using 1% lidocaine solution, local infiltration anesthesia was achieved. Using a modified Seldinger technique and a micropuncture kit, access to the left radial artery was obtained. A 6-Azerbaijani glide sheath was inserted without difficulty. Bilateral selective coronary angiography was performed using JL4 and JR4 catheters. After reviewing the images, it was elected to proceed with the physiological assessment of the left anterior descending. A 6-Azerbaijani XB3.5 guide catheter was advanced over a J-wire and coaxially engaged into the left main ostium. The pressure wire was advanced through the catheter with pressures normalized just off the exiting. It was used to traverse the suspect stenosis and positioned distally. An instantaneous wave-free ratio was performed. The wire was retracted and redirected into the left circumflex. Balloon angioplasty was performed sequentially using a 2.5 x 12 mm noncompliant balloon, 3.0 x 12 mm noncompliant balloon and a 3.5 x 15 mm noncompliant balloon. An inadequate result was treated using a 3.5 x 20 mm Synergy drug-eluting stent. Attention was paid to avoid encroachment onto the distal left main. Repeat imaging showed an optimal result. The wire was removed. Final images showed SMOOTH-3 flow with no dissection, thrombus, or distal wire trauma. At this point, it was elected to conclude the procedure. Overall, the patient tolerated the procedure well. He was to be transferred to the holding area in stable condition. There were no complications. FINDINGS: Hemodynamics. AO 136/90. LEFT VENTRICULOGRAPHY: This was not performed. Ejection fraction is mildly reduced by noninvasive imaging with wall motion abnormalities. CORONARY ARTERIES: Left main coronary artery. This arises from the left coronary cusp. It bifurcates into the left anterior descending and left circumflex coronary artery. It shows calcific 20% distal stenosis. Left anterior descending coronary artery. This shows a 50% ostial stenosis. Instantaneous wave free ratio across the stenosis is 0.96. The remainder of the vessel shows diffuse luminal irregularities and caliber reduction distally. The diagonal branches are of small caliber with ostial disease. There is a long wrap-around left anterior descending. Left circumflex coronary artery. Baseline imaging shows an 85% to 90% short segment stenosis just distal to the ostium involving the bifurcation with a prominent 1st obtuse marginal. This was reduced to 0% by balloon angioplasty and placement of a 3.5 x 20 mm Synergy drug-eluting stent. Final images showed SMOOTH-3 flow with no dissection, thrombus, or distal wire trauma. The 1st obtuse marginal was pinched with preserved SMOOTH flow. The second obtuse marginal is widely patent. The distal left circumflex is a small caliber vessel in the AV groove branch in AV groove. Right coronary artery. This is a dominant vessel giving rise to the posterior descending and posterolateral branches. It shows a 30% to 40% ostial and proximal stenosis. INDICATIONS: Chest pain, abnormal stress test. No (more content not included)... Normal [facility] Vital Signs Date Time Vital Sign Value Performing Clinician Facility 03-17-2024 08:23-0400 Body height 182.88 cm [facility] 03-17-2024 08:23-0400 Body mass index (BMI) [Ratio] 35.4 kg/m2 [facility] 03-17-2024 08:23-0400 Body weight 118.5 kg [facility] 03-17-2024 08:23-0400 Diastolic blood pressure 89 mm[Hg] [facility] 03-17-2024 08:23-0400 Heart rate 67 /min [facility] 03-17-2024 08:23-0400 Respiratory rate 18 /min [facility] 03-17-2024 08:23-0400 SaO2% (BldA) [Mass fraction] 98 % [facility] 03-17-2024 08:23-0400 Systolic blood pressure 131 mm[Hg] [facility] 12-11-2023 10:57-0500 Body height 182.88 cm [facility] 12-11-2023 10:57-0500 Body mass index (BMI) [Ratio] 36 kg/m2 [facility] 12-11-2023 10:57-0500 Body weight 120.4 kg [facility] 12-11-2023 10:57-0500 Diastolic blood pressure 80 mm[Hg] [facility] 12-11-2023 10:57-0500 Heart rate 66 /min [facility] 12-11-2023 10:57-0500 Respiratory rate 18 /min [facility] 12-11-2023 10:57-0500 SaO2% (BldA) [Mass fraction] 98 % [facility] 12-11-2023 10:57-0500 Systolic blood pressure 132 mm[Hg] [facility] 09-02-2023 10:15-0500 Body height 182.88 cm Belkis Scally Other [facility] Other 09-02-2023 10:15-0500 Body mass index (BMI) [Ratio] 37.85 kg/m2 Belkis Scally Other [facility] Other 09-02-2023 10:15-0500 Body weight 126.6 kg Belkis Scally Other [facility] Other 09-02-2023 10:15-0500 Diastolic blood pressure 79 mm[Hg] Belkis Scally Other [facility] Other 09-02-2023 10:15-0500 Respiratory rate 18 /min Belkis Scally Other [facility] Other 09-02-2023 10:15-0500 SaO2% (BldA) [Mass fraction] 97 % Belkis Scally Other [facility] Other 09-02-2023 10:15-0500 Systolic blood pressure 131 mm[Hg] Belkis Scally Other [facility] Other 07-23-2023 08:45-0400 Body height 182.88 cm Belkis Scally Other [facility] Other 07-23-2023 08:45-0400 Body mass index (BMI) [Ratio] 37.85 kg/m2 Belkis Scally Other [facility] Other 07-23-2023 08:45-0400 Body weight 126.6 kg Belkis Scally Other [facility] Other 07-23-2023 08:45-0400 Diastolic blood pressure 88 mm[Hg] Belkis Scally Other [facility] Other 07-23-2023 08:45-0400 Respiratory rate 18 /min Belkis Scally Other [facility] Other 07-23-2023 08:45-0400 SaO2% (BldA) [Mass fraction] 98 % Belkisyu Rosas Other [facility] Other 07-23-2023 08:45-0400 Systolic blood pressure 137 mm[Hg] Belkis Dexterly Other [facility] Other Encounters Encounter Date Encounter Type Care Provider Facility Start: 03-17-2024 End: 03-17-2024 ambulatory [facility] Work Phone: Start: 03-17-2024 End: 03-17-2024 Patient encounter procedure [facility] Physician [facility] Work Phone: Start: 12-11-2023 End: 12-11-2023 ambulatory [facility] Work Phone: Start: 12-11-2023 End: 12-11-2023 Patient encounter procedure [facility] Physician [facility] Work Phone: Start: 11-10-2023 End: 11-10-2023 ambulatory [facility] [place] Start: 09-02-2023 (DM) Diabetes [facility] Start: 09-02-2023 End: 09-03-2023 ambulatory Raya Dye [facility] Other Start: 07-24-2023 End: 07-24-2023 ambulatory Belkis Rosas Other [facility] Other Start: 07-24-2023 Telephone encounter [facility] Start: 07-23-2023 (DM) Diabetes Belk[facility] Rosas [facility] Start: 07-23-2023 End: 07-23-2023 ambulatory Belkis Rosas Other [facility] Other Start: 06-03-2023 End: 06-03-2023 ambulatory Belkis Rosas Other [facility] Other Start: 06-03-2023 Telephone encounter [facility] Start: 04-14-2023 End: 04-14-2023 [facility]ulatory [facility] Start: 02-21-2023 Encounter for genera l adult medical examination without abnormal findings DR RAYA DYE . [facility] Start: 02-18-2023 End: 02-18-[address] RAYA DYE . Facility:[facility] Start: 02-18-2023 End: 02-18-2023 Encounter for general adult medical examination without abnormal findings DR RAYA DYE . Facility:[facility] Start: 02-12-2023 End: 02-13-[address] RAYA DYE . Facility:[facility] Start: 01-29-2023 End: 01-29-2023 [facility] Start: 11-20-2022 End: 11-21-2022 ambulatory RAKESH GAO Facility:[facility] Start: 11-11-2022 End: 11-11-2022 ambulatory RAKESH GAO [facility] Start: 10-16-2022 End: 10-17-2022 ambulatory RAKESH GAO Facility:[facility] Start: 08-28-2022 End: 08-29-[address] AKOSUA SAUCEDO Facility:[facility] Start: 03-20-[address] AKOSUA SAUCEDO Facili ty:[facility] Start: 12-26-2021 End: 12-27-2021 ambulatory AKOSUA SAUCEDO Facility:[facility] Procedures Date Procedure Procedure Detail Performing Clinician Start: 02-12-[address] AKOSUA DELUCA Comment on above: Performed By: #### P [facility] #### [facility] [address] [address] [address] Lauryn Chapman Plan of Treatment Date Care Activity Detail Author Comprehensive metabo lic 1999 panel - Serum or Plasma [facility] enter Comprehensive metabo lic 1999 panel - Serum or Plasma [facility] enter [facility] Payers Date Payer Category Payer Medicare [id number] 2.1 [id number] 1959 Private Health Insurance [id number] 1959 Private Health Insurance [id number] 1961 Self-pay 1960 Unknown [id number] [id number] 1958 Unknown [id number] 2.16.84 [id number] 1958 Unknown [id number] 2.16.84 [id number] 1958 Unknown [id number] 2.16.84 [id number] 1958 Unknown [id number] 2.16.84 [id number] 1958 Unknown [id number] 2.16.84 [id number] 1958 Unknown [id number] 2.16.84 [id number] 1958 Unknown [id number] 2.16.84 [id number] Private Health Insurance [id number] Unknown [id number] 2.16.8 [id number] Social History Date Type Detail Facility Sex Assigned At [facility] Other Start: 1960 Sex Assigned At Male [facility] Start: 12-11-2023 End: 12-11-2023 Tobacco smoking status NHIS Never smoked tobacco (finding) [facility] Medical Equipment Procedure Code Equipment Code Equipment Origin al Text Equipment Identifier Dates Start: 05-28-2023 lancets (Comfort Touch Ult Thin Lancets) Start: 12-10-2023 lancets (Comfort Touch Ult Thin Lancets) Start: 12-10-2023 lancets (Comfort Touch Ult Thin Lancets) Start: 12-10-2023 Clinical Notes 11-11-2022 to 11-10-2023 Note Date & Type Note Facility 11-10-2023 Note [facility] Note Chief Complaint: Patient here for 6 mo follow up CAD, hypertension, and dyslipidemia. He continues to lose weight and is now seeing an municipal clerk. He started him on Jardiance. Still goes to the gym 4-5 days a week. Denies chest pain, SOB, lightheadedness, and palpitations. No blood work or testing since last visit in March 2023. HPI: Tiffanie Mcknight is a 63 y.o. male He continues to lose weight and is now seeing an municipal clerk. He started him on Jardiance. Still goes to the gym 4-5 days a week. Denies chest pain, SOB, lightheadedness, and palpitations. No blood work or testing since last visit in March 2023. Doing well; no new symptoms Cardiology ROS: Review of Systems Constitutional: Positive for weight loss (11# since March 2023). All other systems reviewed and are negative. Past Medical History He has a past medical history of Coronary artery disease, Diabetes mellitus (CMS/HCC), Hyperlipidemia, Hypertension, and Hypothyroidism. Surgical History He has a past surgical history that includes Cardiac catheterization and Coronary stent placement (12/26/2021). Social History He reports that he has never smoked. He has never used smokeless tobacco. No history on file for alcohol use and drug use. Family History Family History Problem Relation Name Age of Onset Atrial fibrillation Mother Other (pacemaker) Mother Hypertension Mother Cardiomyopathy Mother Coronary artery disease Mother Stroke Mother Hyperlipidemia Mother Coronary artery disease Father Other (CABG) Father Allergies Patient has no known allergies. Medications Current Outpatient Medications: aspirin 81 mg chewable tablet, Chew 1 tablet every day by oral route., Disp: , Rfl: atorvastatin (Lipitor) 80 mg tablet, Take 1 tablet (80 mg) by mouth in the morning., Disp: 90 tablet, Rfl: 3 carvedilol (Coreg) 25 mg tablet, Take 1 tablet (25 mg) by mouth with breakfast and with evening meal., Disp: 180 tablet, Rfl: 3 chlorthalidone (Hygroton) 25 mg tablet, Take 1 tablet (25 mg) by mouth in the morning., Disp: 90 tablet, Rfl: 3 icosapent ethyL (Vascepa) 1 gram capsule, Take 2 capsules (2 g) by mouth with breakfast and with evening meal., Disp: 360 capsule, Rfl: 3 levothyroxine (Synthroid, Levoxyl) 25 mcg tablet, Take 1 tablet by mouth in the morning., Disp: , Rfl: losartan (Cozaar) 50 mg tablet, Take 1 tablet (50 mg) by mouth in the morning., Disp: 90 tablet, Rfl: 3 metFORMIN (Glucophage) 500 mg tablet, Take 1 tablet by mouth in the morning and at bedtime., Disp: , Rfl: Last Recorded Vitals BP 132/86 (BP Location: Left arm, Patient Position: Sitting) Pulse 59 Ht 1.88 m (6' 2 ) Wt 125 kg (276 lb) SpO2 97% BMI 35.44 kg/m??? Physical Examination: GENERAL: alert and oriented x3, well developed, in no acute distress. HEAD: atraumatic, normocephalic. EYES: RONALD, EOMI. NECK: trachea midline, no JVD present, no carotid bruits present. CARDIAC: S1, S2 present. RRR. No murmur, rubs, or gallops. RESPIRATORY: CTAB, no increased effort of breathing, no rales, rhonchi, or wheezing. ABDOMEN: soft, nontender, nondistended. EXTREMITIES: no lower extremity edema, peripheral pulses are 2+ bilaterally. No rash/skin discoloration present. NEURO: strength/sensation equal and symmetric in bilateral upper and lower extremities. PSYCH: appropriate mood, affect, and judgement. Assessment: Coronary artery disease s/p ostial left circumflex stent Moderate, nonsignificant disease of the left anterior descending coronary artery Essential hypertension - controlled Dyslipidemia Diabetes mellitus Plan: Continue optimal medical therapy for coronary artery disease including aspirin, high intensity statin therapy, a beta-adriano and an angiotensin receptor adriano Given diabetes mellitus, continue ARB, and Jardiance He is on Vascepa for better control of hypertriglyceridemia Will repeat a fasting lipid profile and liver function test A complete echocardiogram to evaluate ejection fraction which was low normal in the past RTC in a year or sooner should problems arise Akosua Saucedo MD, MPH, [facility], [facility], [facility] Interventional Cardiology Pager Email: [email or web address] 09-02-2023 Evaluation note Encounter Date Diagnosis Assessment Notes Aug, Vitamin D deficiency (ICD-10 - E55.9) Aug, Type 2 diabetes mellitus with hyperglycemia, without long-term current use of insulin (ICD-10 - E11.65) 1. Improved, a Type 2 diabetes with A1c of 6.9% from 7.3% 2. Tolerating Jardiance and metformin continue, could consider GLP for concommitant weight loss and glycemic control. Defers for now, would benefit from RD, repeat, defers this for now as well. UTD TRIGLYCERIDES provided and reviewed. Discusses proper home ambulatory BP monitor, will bring to upcoming appt for validation. BP good control today He does have history of cardiac stent. We did discuss reporting any signs or symptoms of orthostatic hypotension, urinary tract symptoms and maintaining hydration. He is working with cardiology to regulate his triglycerides, most recently 699, down from 800 per his report. Has not been on Icosepent Ethyl for about 1 month (d/t cost > $500), triglycerides of 699 reflect treatment before discontinuatio n. We will consider GLP-1 RA in the future, patient denies personal or family history of MTC or MENS syndrome (discussed in layman's terms). Patient denies history of pancreatitis, although elevations in triglycerides increased risk for pancreatitis. Encourage surveillance blood glucose once per day, increased to 1-2 times per day the week before next appointment. 3. Patient is alert, oriented and receptive to making changes or counseling. Notes: Seen for an assessment of current glucose pattern, changes in treatment plan, counseling and coordination of care related to diabetes, risks, and benefits of treatment, medications, side effects. Given handouts to reinforce concepts reviewed during counseling, see scanned notes. TOPICS REVIEWED: 1. Time was spent reviewing: a. Basic concepts of diabetes, progressive beta cell , concepts of basal/bolus/co rrective insulin requirements. b. Nutrition: Concepts of healthy diet, encouraged to decrease saturated fat in diet and increase non-starchy vegetables and fruits in diet. BMI: Pt. needs to select one small change to decrease caloric intake or increase physical activity to help decrease weight. c. Correct treatment of hypoglycemia, carry a glucose source at all times on your person, in vehicles, and at bedside. Can use glucose tablets/4, four ounces of pop or juice equal to 15 G of carbohydrate. Blood glucose should be 100 mg/dl or higher when driving. d. ADA glucose goals for age and medical complexity reviewed e. Patient questions addressed 2. Activity/exerc ise: Encouraged to start any form of physical activity. Start low level and increase slowly to a minimal goal of 150 minutes/week. Limit activity to what is allowed by other issues such as cardiac, pulmonary or orthopedic restrictions. 3. Standards of care: Reminded to have an annual dilated eye exam, A1C every 3 months, urine testing for microalbumin once/year, check feet daily and report any cuts or sores that do not appear to be healing. 4. Meter: Plan to check blood glucose: Please check blood glucose levels 1-4 times/day. Back to back meals reveal effectiveness of bolus dosing. 5. [facility]. Contact office if any issues or concerns with patterns of hypoglycemia, hyperglycemia, or diabetes medication issues. 6. Prescriptions: Patient uses [employer] Aug, Hyperlipidemia, unspecified hyperlipidemia type (ICD-10 - E78.5) per report STATIN d/c per Cardiology. Icosapent Ethyl cost prohibitive, off x 1 mos. Statin reeinitation beneficial for prevention with diabetes diagnosis per ADA guidelines, escpecially in setting of CVD. UTD information on triglycerinde management given. Hypertriglyce ridemia, Patient information, Beyond the Basics Aug, Hypertension, unspecified type (ICD-10 - I10) reasonable control today, discussed goal of <130/80, on ARB. and carvedolol, historically chlorthalidone. Hx of lisinopril, d/c d/t persistent sinus issues. Encouraged him to bring ambulatory monitor to any clinic appt to validate, and assist with placement Aug, Dietary counseling and surveillance (ICD-10 - Z71.3) interested in weight loss, has had non sustainable success in past 14 Aug, 2023 BMI 37.0-37.9, adult (ICD-10 - Z68.37) Aug, Hypertriglyceridem ia (ICD-10 - E78.1) managed by cardiology, rx grad icosepent cost prohibitive historically. UTD for patient hypertriglyceride provided and reviewed. [facility] Other 10-04-2023 Evaluation note* Encounter Date Diagnosis Assessment Notes Treatment Notes Treatment Clinical Notes Jul, Vitamin D deficiency (ICD-10 - E55.9) Jul, Type 2 diabetes mellitus with hyperglycemia, without long-term current use of insulin (ICD-10 - E11.65) 1. Uncontrolled, a Type 2 diabetes with A1c of 7.3%, predict improvement based on download average. 2. UMIC TODAY, Tolerating Jardiance and metformin continue, could consider GLP for concommitant weight loss and glycemic control. Discusses proper home ambulatory BP monitor, will bring to upcoming appt for validation. BP good control today He does have history of cardiac stent. We did discuss reporting any signs or symptoms of orthostatic hypotension, urinary tract symptoms and maintaining hydration. He is working with cardiology to regulate his triglycerides, most recently 699, down from 800 per his report. Has not been on Icosepent Ethyl for about 1 month (d/t cost > $500), triglycerides of 699 reflect treatment before discontinuation. We will consider GLP-1 RA in the future, patient denies personal or family history of MTC or MENS syndrome (discussed in layman's terms). Patient denies history of pancreatitis, although elevations in triglycerides increased risk for pancreatitis. Encourage surveillance blood glucose once per day, increased to 1-2 times per day the week before next appointment. Could consider fructosamine to determine if improvement if not reflected in blood glucose checks 3. Patient is alert, oriented and receptive to making changes or counseling. Notes: Seen for an assessment of current glucose pattern, changes in treatment plan, counseling and coordination of care related to diabetes, risks, and benefits of treatment, medications, side effects. Given handouts to reinforce concepts reviewed during counseling, see scanned notes. TOPICS REVIEWED: 1. Time was spent reviewing: a. Basic concepts of diabetes, progressive beta cell , concepts of basal/bolus/correc tive insulin requirements. b. Nutrition: Concepts of healthy diet, encouraged to decrease saturated fat in diet and increase non-starchy vegetables and fruits in diet. BMI: Pt. needs to select one small change to decrease caloric intake or increase physical activity to help decrease weight. c. Correct treatment of hypoglycemia, carry a glucose source at all times on your person, in vehicles, and at bedside. Can use glucose tablets/4, four ounces of pop or juice equal to 15 G of carbohydrate. Blood glucose should be 100 mg/dl or higher when driving. d. ADA glucose goals for age and medical complexity reviewed e. Patient questions addressed 2. Activity/exercise: Encouraged to start any form of physical activity. Start low level and increase slowly to a minimal goal of 150 minutes/week. Limit activity to what is allowed by other issues such as cardiac, pulmonary or orthopedic restrictions. 3. Standards of care: Reminded to have an annual dilated eye exam, A1C every 3 months, urine testing for microalbumin once/year, check feet daily and report any cuts or sores that do not appear to be healing. 4. Meter: Plan to check blood glucose: Please check blood glucose levels 1-4 times/day. Back to back meals reveal effectiveness of bolus dosing. 5. [facility]. Contact office if any issues or concerns with patterns of hypoglycemia, hyperglycemia, or diabetes medication issues. 6. Prescriptions: Patient uses [employer] Jul, Hyperlipidemia, unspecified hyperlipidemia type (ICD-10 - E78.5) per report STATIN d/c per Cardiology. Icosapent Ethyl cost prohibitive, off x 1 mos. Statin reeinitation beneficial for prevention with diabetes diagnosis per ADA guidelines, escpecially in setting of CVD. UTD information on triglycerinde management given. Hypertriglyceride claudette, Patient information, Beyond the Basics Jul, Hypertension, unspecified type (ICD-10 - I10) reasonable control today, discussed goal of <130/80, on ARB. and carvedolol, historically chlorthalidone. Hx of lisinopril, d/c d/t persistent sinus issues. Encouraged him to bring ambulatory monitor to any clinic appt to validate, and assist with placement Jul, Dietary counseling and surveillance (ICD-10 - Z71.3) interested in weight loss, has had non sustainable success in past Jul, BMI 37.0-37.9, adult (ICD-10 - Z68.37) [facility] Other 08-15-2023 Evaluation note* Encounter Date Diagnosis Assessment Notes Treatment Notes Treatment Clinical Notes May, Type 2 diabetes mellitus with hyperglycemia, without long-term current use of insulin (ICD-10 - E11.65) [facility] Chief Complaint: Patient here for 2 mo follow up hypertension and CAD. Chlorthalidone was added at last visit in January 2023. He has lost 15#. Says the chlorthalidone hasn't made a difference to his BP. Still denies chest pain and SOB. HPI: Tiffanie Mcknight is a 63 y.o. male With a history of coronary artery disease, hypertension and dyslipidemia. He is here to see me for difficult to control blood pressure. He has been doing very well from a symptom standpoint. He is physically active, he is going to the gym at least 3 times this week. He has no exertional symptoms. Update 04/14/2023: He has been measuring his blood pressure unfortunately before blood pressure medications. They are typically in the 130s to 150s systolic. He has no new symptoms. His blood pressure appears to be uncontrolled; he is only on Glucophage. Cardiology ROS: Review of Systems Constitutional: Positive for weight loss (15#). All other systems reviewed and are negative. Past Medical History He has a past medical history of Coronary artery disease, Diabetes mellitus (CMS/HCC), Hyperlipidemia, Hypertension, and Hypothyroidism. Surgical History He has a past surgical history that includes Cardiac catheterization and Coronary stent placement (12/26/2021). Social History He reports that he has never smoked. He has never used smokeless tobacco. No history on file for alcohol use and drug use. Family History Family History Problem Relation Name Age of Onset Atrial fibrillation Mother Other (pacemaker) Mother Hypertension Mother Cardiomyopathy Mother Coronary artery disease Mother Stroke Mother Hyperlipidemia Mother Coronary artery disease Father Other (CABG) Father Allergies Patient has no known allergies. Medications Current Outpatient Medications: aspirin 81 mg chewable tablet, Chew 1 tablet every day by oral route., Disp: , Rfl: atorvastatin (Lipitor) 80 mg tablet, Take 1 tablet (80 mg) by mouth in the morning., Disp: 90 tablet, Rfl: 3 carvedilol (Coreg) 25 mg tablet, Take 1 tablet (25 mg) by mouth with breakfast and with evening meal., Disp: 180 tablet, Rfl: 3 chlorthalidone (Hygroton) 25 mg tablet, Take 1 tablet (25 mg) by mouth in the morning., Disp: 90 tablet, Rfl: 3 icosapent ethyL (Vascepa) 1 gram capsule, Take 2 capsules (2 g) by mouth with breakfast and with evening meal., Disp: 360 capsule, Rfl: 3 levothyroxine (Synthroid, Levoxyl) 25 mcg tablet, Take 1 tablet by mouth in the morning., Disp: , Rfl: losartan (Cozaar) 50 mg tablet, Take 1.5 tablets (75 mg) by mouth in the morning., Disp: 135 tablet, Rfl: 3 metFORMIN (Glucophage) 500 mg tablet, Take 1 tablet by mouth in the morning and at bedtime., Disp: , Rfl: Last Recorded Vitals BP (!) 135/100 (BP Location: Left arm, Patient Position: Sitting) Pulse 82 Ht 1.88 m (6' 2 ) Wt 130 kg (287 lb) SpO2 98% BMI 36.85 kg/m??? Physical Examination: GENERAL: alert and oriented x3, well developed, in no acute distress. HEAD: atraumatic, normocephalic. EYES: RONALD, EOMI. NECK: trachea midline, no JVD present, no carotid bruits present. CARDIAC: S1, S2 present. RRR. No murmur, rubs, or gallops. RESPIRATORY: CTAB, no increased effort of breathing, no rales, rhonchi, or wheezing. ABDOMEN: soft, nontender, nondistended. EXTREMITIES: no lower extremity edema, peripheral pulses are 2+ bilaterally. No rash/skin discoloration present. NEURO: strength/sensation equal and symmetric in bilateral upper and lower extremities. PSYCH: appropriate mood, affect, and judgement. Labs/03/2023: Serum creatinine 1.06 potassium 4.3 HDL 33, triglycerides 699 HbA1c 7.8 Assessment: Coronary artery disease s/p ostial left circumflex stent Essential hypertension - Uncontrolled Dyslipidemia Diabetes mellitus Plan: I have asked him to check his blood pressure an hour or 2 after medications and to keep a log; if these measurements continue to be elevated, would suggest increasing his losartan and adding Lasix His triglycerides are severely elevated; at least part of this is related to uncontrolled diabetes. I have asked him to discuss diabetes management with his family physician and consider referral to an municipal clerk. Fortunately, his son-in-law is a certified breastfeeding educator in the office of an municipal clerk. I have asked him to discuss diabetes management with him. There are a number of medications that are potentially beneficial including from a cardiovascular standpoint; an SGLT2 inhibitor and or GLP-1 receptor agonist would be recommended given CAD and DM Continue guideline directed medical therapy for coronary artery disease including aspirin, high intensity statin therapy, a beta-adriano and an angiotensin receptor adriano Continue Vascepa Return to clinic in 6 months or sooner should problems ariseBl[facility]chUn[facility] Chief Complaint: Patient here for 3 mo follow up hypertension, CAD, and hyperlipidemia. Losartan was increased to 75mg daily at last apt in Oct 2022 by Rossy Gao CNP. He doesn't think it's helped a lot. Still denies chest pain and SOB. Goes to the gym 5 days a week. HPI: Tiffanie Mcknight is a 62 y.o. male With a history of coronary artery disease, hypertension and dyslipidemia. He is here to see me for difficult to control blood pressure. He has been doing very well from a symptom standpoint. He is physically active, he is going to the gym at least 3 times this week. He has no exertional symptoms. Cardiology ROS: Review of Systems All other systems reviewed and are negative. Past Medical History He has a past medical history of Coronary artery disease, Diabetes mellitus (CMS/HCC), Hyperlipidemia, Hypertension, and Hypothyroidism. Surgical History He has a past surgical history that includes Cardiac catheterization and Coronary stent placement (12/26/2021). Social History He reports that he has never smoked. He has never used smokeless tobacco. No history on file for alcohol use and drug use. Family History Family History Problem Relation Name Age of Onset Atrial fibrillation Mother Other (pacemaker) Mother Hypertension Mother Cardiomyopathy Mother Coronary artery disease Mother Stroke Mother Hyperlipidemia Mother Coronary artery disease Father Other (CABG) Father Allergies Patient has no known allergies. Medications Current Outpatient Medications: aspirin 81 mg chewable tablet, Chew 1 tablet every day by oral route., Disp: , Rfl: atorvastatin (Lipitor) 80 mg tablet, Take 1 tablet (80 mg) by mouth in the morning., Disp: 90 tablet, Rfl: 3 carvedilol (Coreg) 25 mg tablet, Take 1 tablet (25 mg) by mouth with breakfast and with evening meal., Disp: 180 tablet, Rfl: 3 clopidogrel (Plavix) 75 mg tablet, Take 1 tablet (75 mg) by mouth in the morning., Disp: 90 tablet, Rfl: 3 icosapent ethyL (Vascepa) 1 gram capsule, Take 2 capsules (2 g) by mouth with breakfast and with evening meal., Disp: 360 capsule, Rfl: 3 levothyroxine (Synthroid, Levoxyl) 25 mcg tablet, Take 1 tablet by mouth in the morning., Disp: , Rfl: losartan (Cozaar) 50 mg tablet, Take 1.5 tablets (75 mg) by mouth in the morning., Disp: 135 tablet, Rfl: 3 metFORMIN (Glucophage) 500 mg tablet, Take 1 tablet by mouth in the morning and at bedtime., Disp: , Rfl: Last Recorded Vitals BP 159/89 (BP Location: Left arm, Patient Position: Sitting) Pulse 72 Ht 1.88 m (6' 2 ) Wt (!) 137 kg (302 lb) SpO2 97% BMI 38.77 kg/m??? Physical Examination: GENERAL: alert and oriented x3, well developed, in no acute distress. HEAD: atraumatic, normocephalic. EYES: RONALD, EOMI. NECK: trachea midline, no JVD present, no carotid bruits present. CARDIAC: S1, S2 present. RRR. No murmur, rubs, or gallops. RESPIRATORY: CTAB, no increased effort of breathing, no rales, rhonchi, or wheezing. ABDOMEN: soft, nontender, nondistended. EXTREMITIES: no lower extremity edema, peripheral pulses are 2+ bilaterally. No rash/skin discoloration present. NEURO: strength/sensation equal and symmetric in bilateral upper and lower extremities. PSYCH: appropriate mood, affect, and judgement. Labs 10/16/2022: BUN 15, creatinine 0.87 Reviewed labs from 02/11/2022 cholesterol greatly improved from October Total cholesterol 106, HDL 26, triglycerides 242 from over 400 in October, LDL 31.6 well-controlled Liver function and renal function were both normal Last lab values have been reviewed CV Testing: Echo 06/18/2020 No echocardiogram results found for the past 12 months Assessment: Coronary artery disease s/p ostial left circumflex stent Essential hypertension - Uncontrolled Dyslipidemia Diabetes mellitus Plan: Will add chlorthalidone 25 mg daily A basic metabolic panel will be checked in 7 days I have asked him to check his blood pressure at home a.m. and p.m. an hour after medications and to keep a log Return to clinic in 2 months to review his blood pressure readings Akosua Saucedo MD, MPH, [facility], [facility], [facility] Interventional Cardiology Pager Email: [email or web address] Hospital01-23-2023 NoteContinue statinUnWhite Hospital01-23-2023 Note Hypertension is uncontrolled- 147/81 in office PT to take b/p cuff back to pharmacy and have size checked Will increase losaratan to 75 mg daily, repeat bmp in 1 week to assess renal function Continue coreg 25 mg bid- d/w pt to call if brain fog or fatigue affects daily activity [facility]01-23-2023 NoteCoronary artery disease is stable Continue GDMT- ASA lifelong, d/w pt he may stop plavix December- 1 year post stent, and continue coreg. Call office for any concernsUnWhite Hospital01-23-2023 Note Patient here for follow up hypertension. His carvedilol was increased to 25mg bid and losartan was also increased to 50mg. Says his BP has been averaging in the 160's systolic. Says since the med increase he's noticed brain fog at times. Says his BP at home this morning was 127/74 before meds. Still works out a few days a week and has no chest pain and SOB. Had labs last month. Review of Systems All other systems reviewed and are negative.[facility] 11-11-2022 NoteUTP CARDIOLOGY PROGRESS NOTE HPI: Tiffanie Mcknight is a 62 y.o. male here for Hypertension Patient here for follow up hypertension. His carvedilol was increased to 25mg bid and losartan was also increased to 50mg. Says his BP has been averaging in the 160's systolic. Says since the med increase he's noticed brain fog at times. Says his BP at home this morning was 127/74 before meds. Still works out a few days a week and has no chest pain and SOB. Had labs last month. Denied chest pain, shortness of breath, orthopnea. States that he believes his b/p cuff is to small and the wrong size. Review of Systems All other systems reviewed and are negative. Visit Vitals BP 147/81 (BP Location: Left arm, Patient Position: Sitting) Pulse 81 Ht 1.88 m (6' 2 ) Wt 136 kg (300 lb) SpO2 98% BMI 38.52 kg/m??? Smoking Status Never BSA 2.66 m??? No Known Allergies Medications: Current Outpatient Medications on File Prior to Visit Medication Sig Dispense Refill aspirin 81 mg chewable tablet Chew 1 tablet every day by oral route. atorvastatin (Lipitor) 80 mg tablet Take 1 tablet by mouth at bedtime. carvedilol (Coreg) 25 mg tablet Take 1 tablet (25 mg) by mouth with breakfast and with evening meal. 180 tablet 3 clopidogrel (Plavix) 75 mg tablet Take 1 tablet by mouth in the morning. icosapent ethyL (Vascepa) 1 gram capsule Take 2 g by mouth with breakfast and with evening meal. levothyroxine (Synthroid, Levoxyl) 25 mcg tablet Take 1 tablet by mouth in the morning. losartan (Cozaar) 50 mg tablet Take 1 tablet (50 mg) by mouth in the morning. 30 tablet 11 metFORMIN (Glucophage) 500 mg tablet Take 1 tablet by mouth in the morning and at bedtime. blood pressure kit-extra large kit 1 kit once daily as directed. 1 kit 0 No current facility-administered medications on file prior to visit. Physical Exam: Constitutional: Appearance: Normal appearance. Without apparent distress, obese HENT: Head: Normocephalic and atraumatic. Nose: Nose normal. Mouth/Throat: Mouth: Mucous membranes are moist. Eyes: Extraocular Movements: Extraocular movements intact. Conjunctiva/sclera: Conjunctivae normal. Neck: Vascular: No JVD. Cardiovascular: Rate and Rhythm: Normal rate and regular rhythm. Pulses: Dorsalis pedis pulses are 3 on the right side and 3on the left side. Posterior tibial pulses are 3 on the right side and 3 on the left side. Heart sounds: Normal heart sounds, S1 normal and S2 normal. Pulmonary: Effort: Pulmonary effort is normal. Breath sounds: Normal breath sounds. Abdominal: General: Bowel sounds are normal. Palpations: Abdomen is soft. Musculoskeletal: General: Normal range of motion. Cervical back: Normal range of motion. Right lower leg: No edema. Left lower leg: No edema. Skin: General: Skin is warm and dry. Capillary Refill: Capillary refill takes less than 2 seconds. Neurological: General: No focal deficit present. Mental Status: alert and oriented to person, place, and time. Psychiatric: Mood and Affect: Mood normal. Behavior: Behavior normal. Thought Content: Thought content normal. Judgment: Judgment normal. Labs: 10/16/22 BUN 15, CR 0.87, K= 4.8 Reviewed labs from 02/11/2022 cholesterol greatly improved from October Total cholesterol 106, HDL 26, triglycerides 242 from over 400 in October, LDL 31.6 well-controlled Liver function and renal function were both normal Last lab values have been reviewed CV Testing: Echo 06/18/2020 No echocardiogram results found for the past 12 months No echocardiogram results found for the past 12 months Assessment/Plan: Coronary artery disease involving [place] coronary artery of [place] heart without angina pectoris Coronary artery disease is stable Continue GDMT- ASA lifelong, d/w pt he may stop plavix December- 1 year post stent, and continue coreg. Call office for any concerns Essential hypertension Hypertension is uncontrolled- 147/81 in office PT to take b/p cuff back to pharmacy and have size checked Will increase losaratan to 75 mg daily, repeat bmp in 1 week to assess renal function Continue coreg 25 mg bid- d/w pt to call if brain fog or fatigue affects daily activity Mixed hyperlipidemia Continue statin RTC 3 months Staff to call pt in 1-2 weeks to review B/P logUnWhite HospitalChief complaint+Reason for visit Narrative* Chief Complaint DMN f/u-METER Reason for Visit BMI 37.0-37.9, adult Dietary counseling and surveillance Hyperlipemia Hypertension Hypertriglyceridemia Hypothyroidism Type 2 diabetes mellitus Type 2 diabetes mellitus with hyperglycemia Vitamin D deficiency [facility] Work Phone: Evaluation noteNo InformationNortNew [facility]ec[facility] Other Evaluation noteNo assessment information available [facility] Work Phone: Evaluation note* Diagnosis Onset Date Resolution Status Type 2 diabetes mellitus acu te [facility] Work Phone: Evaluation note* Diagnosis Onset Date Resolution Status BMI 37.0-37.9, adult acute Dietary counseling and surveillance acute Hyperlipemia acute Hypertension acute Hypertriglyceridemia acute Hypothyroidism acute Type 2 diabetes mellitus acu te Type 2 diabetes mellitus with hyperglycemia acute Vitamin D deficiency acute [facility] Work Phone: History general Narrative - Reported* Type Description Date Medical History Hypothyroidism Medical History high blood pressure Medical History high triglycerides Surgical History tonsillectomy 1966 Surgical History exploratory lap 2020 Surgical History cardiac stent 2020 Hospitalization History Abd/ chest pain 2020 [facility] [employer] Other Reason for visit NarrativeDM, DISCUSS YEARLY DIABETIC EYE EXAMS, UMIC TODAY, NEEDS FOOT CHECK, Self Referral Type [facility] Other Relotp for visit NarrativeDM, DISCUSS YEARLY DIABETIC EYE EXAMS, Self Referral Type [facility] Other Summary Purpose Family History Relationship Condition Age at Onset Recorded Date/T solo brother Heart disease Unknown Hypertension Unknown Diabetes mellitus Unknown father Diabetes mellitus Unknown Heart disease Unknown Not Specified Heart disease Unknown Relationship Condition Age at Onset Recorded Date/T solo brother Heart disease Unknown Hypertension Unknown Diabetes mellitus Unknown father Diabetes mellitus Unknown Heart disease Unknown Unknown Not Specified Heart disease Unknown Advance Directives Advance Directive Response Recorded Date/ Time Advance Directives No May 29, 2023 7:56am Advance Directive Response Recorded Date/ Time Advance Directives No May 29, 2023 8:56am Chief Complaint and Reason for Visit Chief Complaint meter Reason for Visit Type 2 diabetes luis manuel itus Additional Source Comments (unrecognized sect ion and content) No Status Records FoundNo Status Records FoundNo Status Records FoundNo Status Records FoundNo Status Records Found INFORMATION SOURCE (unrecogn ized section and content) DATE CREATED AUTHOR 01/01/2022 [facility] DATE CREATED AUTHOR AUTHOR'S ORGANIZ ATION 03/01/2023 [facility] DATE CREATED AUTHOR AUTHOR'S ORGANIZ ATION 11/10/2023 [facility] DATE CREATED AUTHOR AUTHOR'S ORGANIZ ATION 12/18/2023 [facility] DATE CREATED AUTHOR AUTHOR'S ORGANIZ ATION 03/16/2024 Medeiros Irion [facility] REASON FOR VISIT (unrecogniz ed section and content) Erx clarification for test s tripsLab result Goals (unrecognized section and content) Goals may be documented in a n alternate section Care Teams (unrecognized sec tion and content) Team Status: Active Member Role Status Dates Raya Dye MD Primary Care Provider Active Team Status: Inactive Member Role Status Dates Raya Dye MD Primary Care Provider Active Start: December 11, 2023 End: December 11, 2023 Belkis Rosas APRN Attending Provider Active Start: December 11, 2023 End: December 11, 2023 Team Status: Inactive Member Role Status Dates Raya Dye MD Primary Care Provider Active Start: March 17, 2024 End: March 17, 2024 Belkis Rosas APRN Attending Provider Active Start: March 17, 2024 End: March 17, 2024 FOR RECORDS PERTAINING TO PATIENTS WHO ARE OR HAVE BEEN ENROLLED IN A CHEMICAL DEPENDENCY/SUBSTANCEABUSE PROGRAM, SOME INFORMATION MAY BE OMITTED. This clinical summary was aggregated from multiple sources. Caution should be exercised in using it in the provision of clinical care. This summary normalizes information from multiple sources, and as a consequence, information in this document may materially change the coding, format and clinical context of patient data. In addition, data may be omitted in some cases. CLINICAL DECISIONS SHOULD BE BASED ON THE PRIMARY CLINICAL RECORDS. [employer] provides no warranty or guarantee of the accuracy or completeness of information in this document.
[2024-04-26 09:46] LABS: Basophils Absolute Auto 0.1 10^3/uL (0.0-0.1); Basophils Percent Auto 0.7 % (0.2-2.0); Eosinophils Absolute Auto 0.1 10^3/uL (0.0-0.7); Eosinophils Percent Auto 1.6 % (0.9-7.0); Hematocrit 50.2 % (42.0-54.0); Hemoglobin 15.7 g/dL (14.0-18.0); Immature Granulocytes Abs Auto 0.04 10^3/uL (0.00-0.03); Immature Granulocytes Pct Auto 0.5 % (0.0-0.5); Lymphocytes Absolute Auto 1.8 10^3/uL (1.2-3.8); Lymphocytes Percent Auto 21.2 % (20.5-60.0); Mean Corpuscular HGB Conc 31.3 g/dL (29.9-35.2); Mean Corpuscular Hemoglobin 23.9 pg (25.9-34.0); Mean Corpuscular Volume 76.3 fL (80.0-94.0); Mean Platelet Volume 10.2 fL (9.5-13.5); Monocytes Absolute Auto 0.6 10^3/uL (0.3-0.8); Monocytes Percent Auto 6.7 % (1.7-12.0); Neutrophils Absolute Auto 5.7 10^3/uL (1.4-6.5); Neutrophils Percent Auto 69.3 % (43.0-75.0); Platelet Count 193 10^3/uL (150-450); Red Blood Count 6.58 10^6/uL (4.70-6.10); Red Cell Distribution Width 17.2 % (11.0-15.0); White Blood Count 8.2 10^3/uL (4.0-11.0)
[2024-04-26 10:55] LABS: Free T4 1.03 ng/dL (0.76-1.46)
[2024-04-26 10:56] LABS: Estimated Average Glucose 140 mg/dL; Glycohemoglobin A1C 6.5 % (4.5-6.2)
[2024-04-26 10:59] LABS: Alanine Aminotransferase 32 U/L (16-63); Albumin Globulin Ratio 1.1; Albumin Level 3.7 g/dL (3.4-5.0); Alkaline Phosphatase 57 U/L (46-116); Anion Gap 14.8; Aspartate Amino Transferase 21 U/L (15-37); BUN Creatinine Ratio 21.1; Bilirubin Total 0.6 mg/dL (0.2-1.0); Calcium 8.8 mg/dL (8.5-10.1); Carbon Dioxide 26.1 mmol/L (21.0-32.0); Chloride 101 mmol/L (98-107); Chol HDL Ratio 4.3; Cholesterol 168 mg/dL (<=200); Estimated GFR (African America >60 (>=60); Estimated GFR (Non-African Ame >60 (>=60); Free T3 3.61 pg/mL (2.18-3.98); Globulin 3.3 g/dL; Glucose 145 mg/dL (74-106); HDL Cholesterol 39 mg/dL (40-60); Potassium 3.9 mmol/L (3.5-5.1); Sodium 138 mmol/L (136-145); Thyroid Stimulating Hormone 4.929 uIU/mL (0.358-3.740); Triglycerides 311 mg/dL (<=150); VLDL CHOLESTEROL 62.2 mg/dL
[2024-04-27 04:07] LABS: PSA, Free 0.21 ng/mL; Prostate Specific Ag 0.6 ng/mL (0.0-4.0)
== END 2024-04-26 09:09 | disposition home or self-care (01) ==
LOC: LAB 09:10
PROVIDERS: PCP Family Medicine; Visit Provider Family Medicine
DX: E78.5 Hyperlipidemia, unspecified (principal); E03.9 Hypothyroidism, unspecified; I10 Essential (primary) hypertension; R53.83 Other fatigue; R97.20 Elevated prostate specific antigen [PSA]; E11.9 Type 2 diabetes mellitus without complications
CPT/HCPCS: 36415; 80053; 80061; 83036; 84153; 84154; 84439; 84443; 84481; 85025

== ENCOUNTER 2024-09-15 09:46 | Outpatient (OUT) | payer MEDICARE, OTHER, SELFPAY ==
--- OUTSIDE RECORDS SUMMARY | 2024-09-15 10:01 | XMS_ITS | CCD ---
Author Organization [facility] Care Team Providers Care Slot Operations Manager Name Role Phone ADITYA SAUCEDOAB A Attending Unavailable [place]TAHAWY, EHAB A Admitting [...] disease (6 sources) Atherosclerotic heart disease of [place] coronary artery without angina pectoris; Translations: [ASHD [place] CA W/O ANGINA PECTORIS] Onset: 11-11-2022 Chronic [...] Provider Letter March 16, 2024 TIFFANIE MCKNIGHT [address] [place] [id number] : 1960 Dear Mr. Mcknight, We have been trying to reach you with no success regarding a referral from Dr Dye. It is important that you return our call upon receiving this letter. Also, at the time of your call, please provide us with your current information. Thank you for your prompt attention to this matter. Sincerely, [facility] General Surgery [phone] [facility] Physician Referralon 024 Physician Referral [phone] [id number] C6#[id number] [facility] Physician Referralon 024 Physician Referral [id number] DD#[id number] [facility] Office Visiton 11-10-2023 Follow-up visit [id number] Tiffanie Mcknight 1960 M Date Provider Department Center 11/10/2023 271-CHASE, AKOSUA CARD [facility] Family History Problem Relation Age of Onset Atrial fibrillation Mother Other Mother Hypertension Mother Cardiomyopathy Mother Coronary artery disease Mother Stroke Mother Hyperlipidemia Mother Coronary artery disease Father Other Father Family Status - Relation Status Age at Mother Father Level of Service:40007 [place] OFFICE/OUTPATIENT ESTABLISHED MOD MDM 30 MIN Normal [facility] A1C HEMOGLOBINon 09-02-2023 HbA1c (Bld) [Mass fraction] 6.9 % [employer] Other Glucose - FINGER STICKon Glucose [Mass/Vol] 240 mg/dL [facility] Other HbA1c (Bld) [Mass fraction]o n 09-02-2023 A1C HEMOGLOBIN [facility] [employer] Other Glucose - FINGER STICKon Glucose [Mass/Vol] 151 mg/dL [employer] Other MicroAlb Creat Ratio,Uon Albumin DL <= 20 mg/L (U) [Mass/Vol] 1.8288008 mg/dL Normal 0.0-1.8 mg/dL [employer] Other Albumin/Creatinine DL <= 20 mg/L (U) [Mass ratio] 20.087475 mg/g Normal 0.0-30.0 mg/g [employer] Other Creatinine (U) [Mass/Vol] 65.6149014 mg/dL High 14.0-26.0 mg/dL [employer] Other Albumin DL <= 20 mg/L (U) [Mass/Vol] 1.3 mg/dL Normal 0.0-1.8 [facility] Comment on above: Order Comment: Reaso n for Exam Type 2 diabetes mellitus with hyperglycemia, without long-te Performed By: #### U RMACRERAT #### [address] Creatinine, Urine (Random) 65.0 mg/dL High 14.0-26.0 [facility] Comment on above: Order Comment: Reaso n for Exam Type 2 diabetes mellitus with hyperglycemia, without long-te Performed By: #### U RMACRERAT #### [facility] [address] Microalbumin/Creatin ine Ratio 20.0 mg/g Normal 0.0-30.0 [facility] Comment on above: Order Comment: Reaso n for Exam Type 2 diabetes mellitus with hyperglycemia, without long-te Result Comment: 30-3 00 mg/g indicates an increased risk for diabetic nephropathy. Greater than 300 mg/g is consistent with clinical nephropathy. (Am. J. Kidney Disease 1995, 25:107) PERFORMED BY: [facility] [address] [place] [address] PATHOLOGIST CAR PORTER VICK MARTE M.D. Performed By: #### U RMACRERAT #### [facility] [address] [id number] [facility] 36on 05-19-2023 36 Patient's insurance switched since turning 63 recently. His Vascepa now costs him over $500. Is there something else you'd like him to take? Please advise. Thanks. Normal [facility] Office Visiton 04-14-2023 Follow-up visit [id number] Tiffanie Mcknight 1960 Date Provider Department Center 04/14/2023 Braxton-AKOSUA SAUCEDO CARD [facility] Family History Problem Relation Age of Onset Atrial fibrillation Mother Other Mother Hypertension Mother Cardiomyopathy Mother Coronary artery disease Mother Stroke Mother Hyperlipidemia Mother Coronary artery disease Father Other Father Family Status - Relation Status Age at Mother Father Level of Service:52111 [place] OFFICE/OUTPATIENT ESTABLISHED LOW MDM 20-29 MIN Normal [facility] OCC BLD IMMUNO SCREENon OCCULT BLOOD Negative Normal NEGATIVE [facility] Comment on above: Performed By: #### O BSCRN #### [facility] [address] [address] [address] Lauryn Chapman INSULINon 02-13-2023 Insulin 45.1 uIU/mL Critically high 2.6-24.9 [facility] Comment on above: Performed By: #### I NSULIN #### [facility] [address] [place] [address] Dr. Lauryn Chapman CBC AUTO DIFFon 02-12-2023 BASO # 0.1 103/ul Normal 0.0-0.1 [facility] Comment on above: Performed By: #### O BSCRN #### [facility] [address] [place] [address] Dr. Lauryn Chapman Basophils/100 WBC (Bld) 0.8 % Normal 0.2-2.0 [facility] Comment on above: Performed By: #### O BSCRN #### [facility] [address] [place] [address] Dr. Lauryn Chapman EO # 0.1 103/ul Normal 0.0-0.7 [facility] Comment on above: Performed By: #### O BSCRN #### [facility] [address] [place] [address] Dr. Lauryn Chapman Eosinophils/100 WBC (Bld) 1.9 % Normal 0.9-7.0 [facility] Comment on above: Performed By: #### O BSCRN #### [facility] [address] [place] [address] Dr. Lauryn Chapman Erythrocyte distribution width (RBC) [Ratio] 17.4 % Critically high 11.0-15.0 [facility] Comment on above: Performed By: #### O BSCRN #### [facility] [address] [place] [address] Dr. Lauryn Chapman Hematocrit (Bld) [Volume fraction] 49.5 % Normal 42.0-54.0 [facility] Comment on above: Performed By: #### O BSCRN #### [facility] [address] [place] [address] Dr. Lauryn Chapman Hemoglobin (Bld) [Mass/Vol] 15.6 g/dL Normal 14.0-18.0 [facility] Comment on above: Performed By: #### O BSCRN #### [facility] [address] [place] [address] Dr. Lauryn Chapman IG # 0.03 10e3/ul Normal 0.00-0.03 [facility] Comment on above: Performed By: #### O BSCRN #### [facility] [address] [place] [address] Dr. Lauryn Chapman IG % 0.4 % Normal 0.0-0.5 [facility] Comment on above: Performed By: #### O BSCRN #### [facility] [address] [address] [address] Lauryn Chapman LYMPH # 1.9 103/ul Normal 1.2-3.8 [facility] Comment on above: Performed By: #### O BSCRN #### [facility] [address] [place] [address] Dr. Lauryn Chapman Lymphocytes/100 WBC (Bld) 25.7 % Normal 20.5-60.0 [facility] Comment on above: Performed By: #### O BSCRN #### [facility] [address] [place] [address] Dr. Lauryn Chapman MANUAL DIFF REQ NO Normal [facility] Comment on above: Performed By: #### O BSCRN #### [facility] [address] [place] [address] Dr. Laruyn Chapman MCH (RBC) [Entitic mass] 23.6 pg Critically low 25.9-34.0 [facility] Comment on above: Performed By: #### O BSCRN #### [facility] [address] [place] [address] Dr. Lauryn Chapman MCHC (RBC) [Mass/Vol] 31.5 g/dL Normal 29.9-35.2 [facility] Comment on above: Performed By: #### O BSCRN #### [facility] [address] [place] [address] Dr. Lauryn Chapman MCV (RBC) [Entitic vol] 74.8 fL Critically low 80.0-94.0 [facility] Comment on above: Performed By: #### O BSCRN #### [facility] [address] [place] [address] Dr. Lauryn Chapman MONO # 0.5 103/ul Normal 0.3-0.8 [facility] Comment on above: Performed By: #### O BSCRN #### [facility] [address] [place] [address] Dr. Lauryn Chapman Monocytes/100 WBC (Bld) 7.3 % Normal 1.7-12.0 [facility] Comment on above: Performed By: #### O BSCRN #### [facility] [address] [place] [address] Dr. Lauryn Chapman NEUT # 4.7 103/ul Normal 1.4-6.5 [facility] Comment on above: Performed By: #### O BSCRN #### [facility] [address] [place] [address] Dr. Lauryn Chapman Neutrophils/100 WBC (Bld) 63.9 % Normal 43.0-75.0 [facility] Comment on above: Performed By: #### O BSCRN #### [facility] [address] [place] [address] Dr. Lauryn Chapman Platelet mean volume (Bld) [Entitic vol] 9.5 fL Normal 9.5-13.5 [facility] Comment on above: Performed By: #### O BSCRN #### [facility] [address] [place] [address] Dr. Lauryn Chapman PLT 188 103/ul Normal 150-450 [facility] Comment on above: Performed By: #### O BSCRN #### [facility] [address] [place] [address] Dr. Lauryn Chapman RBC 6.62 106/ul Critically high 4.70-6.10 [facility] Comment on above: Performed By: #### O BSCRN #### [facility] [address] [place] [address] Dr. Lauryn Chapman WBC 7.4 103/ul Normal 4.0-11.0 [facility] Comment on above: Performed By: #### O BSCRN #### [facility] [address] [place] [address] Dr. Lauryn Chapman DIRECT LDLon 02-12-2023 Cholesterol in LDL [Mass/Vol] 69 mg/dL Normal [facility] Comment on above: Performed By: #### T SH, LIPID, T7, CMP, DLDL, URIC #### [facility] [address] [address] [address] Lauryn Chapman DLDL NORMAL SEE BELOW Normal [facility] Comment on above: Result Comment: <100 mg/dl OPTIMAL 100 - 129 mg/dl NEAR OR ABOVE OPTIMAL 130 - 159 mg/dl BORDERLINE HIGH 160 - 189 mg/dl HIGH >190 mg/dl VERY HIGH Performed By: #### T SH, LIPID, T7, CMP, DLDL, URIC #### [facility] [address] [address] [address] Lauryn Chapman FREE THYROXINE INDEX T7on FTI 2.41 Normal 1.30-4.50 [facility] Comment on above: Performed By: #### O BSCRN #### [facility] [address] [place] [address] Dr. Lauryn Chapman T3U 29.0 % Critically low 33.0-40.0 [facility] Comment on above: Performed By: #### O BSCRN #### [facility] [address] [address] [address] Lauryn Chapman T4 [Mass/Vol] 8.30 ug/dL Normal 4.50-12.10 [facility] Comment on above: Performed By: #### O BSCRN #### [facility] [address] [place] [address] Dr. Lauryn Chapman GLYCOHEMOGLOBIN A1Con 2022 ADA RECOMMENDATION SEE BELOW Normal [facility] Comment on above: Result Comment: ADA RECOMMENDED LIMIT 4.0 - 6.0 ADA THERAPEUTIC TARGET < 7.0 ACTION SUGGESTED > 7.0 Performed By: #### A 1C #### [facility] [address] [place] [address] Dr. Lauryn Chapman Glucose [Mass/Vol] 177 mg/dL Normal [facility] Comment on above: Performed By: #### A 1C #### [facility] [address] [place] [address] Dr. Lauryn Chapman HbA1c (Bld) [Mass fraction] 7.8 % Critically high 4.5-6.2 [facility] Comment on above: Performed By: #### A 1C #### [facility] [address] [place] [address] Dr. Lauryn Chapman LIPID PROFILEon 02-12-2023 CHOL-HDL RATIO NORM SEE BELOW Normal [facility] Comment on above: Result Comment: 3.3 - 4.4 LOW RISK 4.4 - 7.1 AVERAGE RISK 7.1 - 11.0 MODERATE RISK >11.0 HIGH RISK Performed By: #### T SH, LIPID, T7, CMP, DLDL, URIC #### [facility] [address] [place] [address] Dr. Lauryn Chapman Cholesterol [Mass/Vol] 186 mg/dL Normal <=200 [facility] Comment on above: Performed By: #### T SH, LIPID, T7, CMP, DLDL, URIC #### [facility] [address] [place] [address] Dr. Lauryn Chapman Cholesterol in HDL [Mass/Vol] 33 mg/dL Critically low 40-60 [facility] Comment on above: Performed By: #### T SH, LIPID, T7, CMP, DLDL, URIC #### [facility] [address] [place] [address] Dr. Lauryn Chapman Cholesterol.total/Ch olesterol in HDL [Mass ratio] 5.6 {ratio} Normal [facility] Comment on above: Performed By: #### T SH, LIPID, T7, CMP, DLDL, URIC #### [facility] [address] [place] [address] Dr. Lauryn Chapman HDL NORMAL > or = 60 mg/dl - LOW CARDIOVASCULAR RISK <40 mg/dl - HIGH CARDIOVASCULAR RISK Normal [facility] Comment on above: Performed By: #### T SH, LIPID, T7, CMP, DLDL, URIC #### [facility] [address] [place] [address] Dr. Lauryn Chapman Triglyceride [Mass/Vol] 699 mg/dL Critically high <=150 [facility] Comment on above: Performed By: #### T SH, LIPID, T7, CMP, DLDL, URIC #### [facility] [address] [address] [address] Lauryn Chapman VLDL CALC 139.8 mg/dL Normal [facility] Comment on above: Performed By: #### T SH, LIPID, T7, CMP, DLDL, URIC #### [facility] [address] [place] [address] Dr. Lauryn Chapman PROF 14(COMP METB)on 023 Albumin [Mass/Vol] 3.9 g/dL Normal 3.4-5.0 [facility] Comment on above: Performed By: #### T SH, LIPID, T7, CMP, DLDL, URIC #### [facility] [address] [place] [address] Dr. Lauryn Chapman Albumin/Globulin [Mass ratio] 1.0 {ratio} Normal [facility] Comment on above: Performed By: #### T SH, LIPID, T7, CMP, DLDL, URIC #### [facility] [address] [place] [address] Dr. Lauryn Chapman ALP [Catalytic activity/Vol] 71 U/L Normal 46-116 [facility] Comment on above: Performed By: #### T SH, LIPID, T7, CMP, DLDL, URIC #### [facility] [address] [place] [address] Dr. Lauryn Chapman ALT [Catalytic activity/Vol] 62 U/L Normal 16-63 [facility] Comment on above: Performed By: #### T SH, LIPID, T7, CMP, DLDL, URIC #### [facility] [address] [place] [address] Dr. Lauryn Chapman Anion gap [Moles/Vol] 14.2 mmol/L Normal [facility] Comment on above: Performed By: #### T SH, LIPID, T7, CMP, DLDL, URIC #### [facility] [address] [place] [address] Dr. Lauryn Chapman AST [Catalytic activity/Vol] 30 U/L Normal 15-37 [facility] Comment on above: Performed By: #### T SH, LIPID, T7, CMP, DLDL, URIC #### [facility] [address] [address] [address] Lauryn Chapman Bilirubin [Mass/Vol] 0.6 mg/dL Normal 0.2-1.0 [facility] Comment on above: Performed By: #### T SH, LIPID, T7, CMP, DLDL, URIC #### [facility] [address] [address] [address] Lauryn Chapman Calcium [Mass/Vol] 9.3 mg/dL Normal 8.5-10.1 [facility] Comment on above: Performed By: #### T SH, LIPID, T7, CMP, DLDL, URIC #### [facility] [address] [place] [address] Dr. Lauryn Chapman Chloride [Moles/Vol] 99 mmol/L Normal 98-107 [facility] Comment on above: Performed By: #### T SH, LIPID, T7, CMP, DLDL, URIC #### [facility] [address] [place] [address] Dr. Lauryn Chapman CO2 [Moles/Vol] 27.1 mmol/L Normal 21.0-32.0 [facility] Comment on above: Performed By: #### T SH, LIPID, T7, CMP, DLDL, URIC #### [facility] [address] [place] [address] Dr. Lauryn Chapman Creatinine [Mass/Vol] 1.06 mg/dL Normal 0.70-1.30 [facility] Comment on above: Performed By: #### T SH, LIPID, T7, CMP, DLDL, URIC #### [facility] [address] [place] [address] Dr. Lauryn Chapman EGFR-AF IRAQI >60 Normal >=60 [facility] Comment on above: Performed By: #### T SH, LIPID, T7, CMP, DLDL, URIC #### [facility] [address] [place] [address] Dr. Lauryn Chapman EGFR-NON AF IRAQI >60 Normal >=60 [facility] Comment on above: Performed By: #### T SH, LIPID, T7, CMP, DLDL, URIC #### [facility] [address] [place] [address] Dr. Lauryn Chapman Globulin (S) [Mass/Vol] 3.9 g/dL Normal [facility] Comment on above: Performed By: #### T SH, LIPID, T7, CMP, DLDL, URIC #### [facility] [address] [place] [address] Dr. Lauryn Chapman Glucose [Mass/Vol] 167 mg/dL Critically high 74-106 [facility] Comment on above: Performed By: #### T SH, LIPID, T7, CMP, DLDL, URIC #### [facility] [address] [place] [address] Dr. Lauryn Chapman Potassium [Moles/Vol] 4.3 mmol/L Normal 3.5-5.1 [facility] Comment on above: Performed By: #### T SH, LIPID, T7, CMP, DLDL, URIC #### [facility] [address] [place] [address] Dr. Lauryn Chapamn Protein [Mass/Vol] 7.8 g/dL Normal 6.4-8.2 [facility] Comment on above: Performed By: #### T SH, LIPID, T7, CMP, DLDL, URIC #### [facility] [address] [place] [address] Dr. Lauryn Chapman Sodium [Moles/Vol] 136 mmol/L Normal 136-145 [facility] Comment on above: Performed By: #### T SH, LIPID, T7, CMP, DLDL, URIC #### [facility] [address] [place] [address] Dr. Lauryn Chapman Urea nitrogen [Mass/Vol] 20.0 mg/dL Critically high 7.0-18.0 [facility] Comment on above: Performed By: #### T SH, LIPID, T7, CMP, DLDL, URIC #### [facility] [address] [place] [address] Dr. Lauryn Chapman Urea nitrogen/Creatinine [Mass ratio] 18.9 mg/mg Normal [facility] Comment on above: Performed By: #### T SH, LIPID, T7, CMP, DLDL, URIC #### [facility] [address] [address] [address] Lauryn Chapman TSHon 02-12-2023 TSH 6.440 uIU/mL Critically high 0.358-3.740 [facility] Comment on above: Performed By: #### O BSCRN #### [facility] [address] [address] [address] Lauryn Chapman URIC ACID SERUMon 02-12-2023 Urate [Mass/Vol] 9.6 mg/dL Critically high 3.5-7.2 [facility] Comment on above: Performed By: #### T SH, LIPID, T7, CMP, DLDL, URIC #### [facility] [address] [address] [address] Lauryn Chapman Office Visiton 01-29-2023 Follow-up visit [id number] Tiffanie Mcknight 1960 M Date Provider Department [place] 01/29/2023 Braxton-AKOSUA SAUCEDO [facility] Family History Problem Relation Age of Onset Atrial fibrillation Mother Other Mother Hypertension Mother Cardiomyopathy Mother Coronary artery disease Mother Stroke Mother Hyperlipidemia Mother Coronary artery disease Father Other Father Family Status - Relation Status Age at Mother Father Level of Service:14466 [place] OFFICE/OUTPATIENT ESTABLISHED MOD MDM 30-39 MIN Reason for Visit and Comments: Hypertension [918094] Coronary Artery Disease [187] Hyperlipidemia [182] Normal [facility] 36on 11-29-2022 36 Starting 11/11/22 118/70 164/65 147/90 178/121 191/122 162/99 172/104 163/103 169/84 195/120 170/111 178/120 184/112 188/105 212/104 180/104 149/94 Majority of these values were been taken BEFORE meds. So I advised patient to call us back in 2 weeks with BP's checked 1-2 hours AFTER medications. Normal [facility] 36on 11-28-2022 36 lm Normal [facility] PROF CHEM 8 (BAS METB)on Anion gap [Moles/Vol] 16.1 mmol/L [facility] Comment on above: Performed By: #### O BSCRN #### [facility] [address] [address] [address] Lauryn Chapman Calcium [Mass/Vol] 8.8 mg/dL Normal 8.5-10.1 [facility] Comment on above: Performed By: #### O BSCRN #### [facility] [address] [address] [address] Lauryn Chapman Chloride [Moles/Vol] 104 mmol/L Normal 98-107 [facility] Comment on above: Performed By: #### O BSCRN #### [facility] [address] [address] [address] Lauryn Chapman CO2 [Moles/Vol] 22.4 mmol/L Normal 21.0-32.0 [facility] Comment on above: Performed By: #### O BSCRN #### [facility] [address] [place] [address] Dr. Lauryn Chapman Creatinine [Mass/Vol] 0.79 mg/dL Normal 0.70-1.30 [facility] Comment on above: Performed By: #### O BSCRN #### [facility] [address] [place] [address] Dr. Lauryn Chapman EGFR-AF IRAQI >60 Normal >=60 [facility] Comment on above: Performed By: #### O BSCRN #### [facility] [address] [place] [address] Dr. Lauryn Chapman EGFR-NON AF IRAQI >60 Normal >=60 [facility] Comment on above: Performed By: #### O BSCRN #### [facility] [address] [address] [address] Lauryn Chapman Glucose [Mass/Vol] 169 mg/dL Critically high 74-106 [facility] Comment on above: Performed By: #### O BSCRN #### [facility] [address] [address] [address] Lauryn Chapman Potassium [Moles/Vol] 4.5 mmol/L Normal 3.5-5.1 [facility] Comment on above: Performed By: #### O BSCRN #### [facility] [address] [address] [address] Lauryn Chapman Sodium [Moles/Vol] 138 mmol/L Normal 136-145 [facility] Comment on above: Performed By: #### O BSCRN #### [facility] [address] [address] [address] Lauryn Chapman Urea nitrogen [Mass/Vol] 12.0 mg/dL Normal 7.0-18.0 [facility] Comment on above: Performed By: #### O BSCRN #### [facility] [address] [address] [address] Lauryn Champan Urea nitrogen/Creatinine [Mass ratio] 15.2 mg/mg Normal [facility] Comment on above: Performed By: #### O BSCRN #### [facility] [address] [address] [address] Lauryn Chapman 37on 11-11-2022 37 Increase losartan to 75 mg daily- 1 1/2 tabs until next prescription is filled- next bottle will be the 75 mg tabs Have blood work done 1 week after increased dose of losartan Normal [facility] Office Visiton 11-11-2022 Follow-up visit [id number] Tiffanie Mcknight 1960 M Date Provider Department Center 11/11/2022 RAKESH BAIG [facility] Family History Problem Relation Age of Onset Atrial fibrillation Mother Other Mother Hypertension Mother Cardiomyopathy Mother Coronary artery disease Mother Stroke Mother Hyperlipidemia Mother Coronary artery disease Father Other Father Family Status - Relation Status Age at Mother Father Level of Service:07676 [place] OFFICE/OUTPATIENT ESTABLISHED MOD MDM 30-39 MIN Reason for Visit and Comments: Hypertension [334102] Normal [facility] PROF CHEM 8 (BAS METB)on Anion gap [Moles/Vol] 19.7 mmol/L Normal [facility] Comment on above: Performed By: #### O BSCRN #### [facility] [address] [address] [address] Lauryn Chapman Calcium [Mass/Vol] 8.8 mg/dL Normal 8.5-10.1 [facility] Comment on above: Performed By: #### O BSCRN #### [facility] [address] [address] [address] Lauryn Chapman Chloride [Moles/Vol] 103 mmol/L Normal 98-107 [facility] Comment on above: Performed By: #### O BSCRN #### [facility] [address] [address] [address] Lauryn Chapman CO2 [Moles/Vol] 20.1 mmol/L Critically low 21.0-32.0 [facility] Comment on above: Performed By: #### O BSCRN #### [facility] [address] [address] [address] Lauryn Chapman Creatinine [Mass/Vol] 0.87 mg/dL Normal 0.70-1.30 [facility] Comment on above: Performed By: #### O BSCRN #### [facility] [address] [address] [address] Lauryn Chapman EGFR-AF IRAQI >60 Normal >=60 [facility] Comment on above: Performed By: #### O BSCRN #### [facility] [address] [address] [address] Lauryn Chapman EGFR-NON AF IRAQI >60 Normal >=60 [facility] Comment on above: Performed By: #### O BSCRN #### [facility] [address] [address] [address] Lauryn Chapman Glucose [Mass/Vol] 170 mg/dL Critically high 74-106 [facility] Comment on above: Performed By: #### O BSCRN #### [facility] [address] [address] [address] Lauryn Chapman Potassium [Moles/Vol] 4.8 mmol/L Normal 3.5-5.1 [facility] Comment on above: Performed By: #### O BSCRN #### [facility] [address] [address] [address] Lauryn Chapman Sodium [Moles/Vol] 138 mmol/L Normal 136-145 [facility] Comment on above: Performed By: #### O BSCRN #### [facility] [address] [address] [address] Lauryn Chapman Urea nitrogen [Mass/Vol] 15.0 mg/dL Normal 7.0-18.0 [facility] Comment on above: Performed By: #### O BSCRN #### [facility] [address] [address] [address] Lauryn Chapman Urea nitrogen/Creatinine [Mass ratio] 17.2 mg/mg Normal [facility] Comment on above: Performed By: #### O BSCRN #### [facility] [address] [address] [address] Lauryn Chapman LIPID PROFILEon 08-28-2022 CHOL-HDL RATIO NORM SEE BELOW Normal [facility] Comment on above: Result Comment: 3.3 - 4.4 LOW RISK 4.4 - 7.1 AVERAGE RISK 7.1 - 11.0 MODERATE RISK >11.0 HIGH RISK Performed By: #### L FELICIA LIPID #### [facility] [address] [place] [address] Dr. Lauryn Chapman Cholesterol [Mass/Vol] 106 mg/dL Normal <=200 [facility] Comment on above: Performed By: #### L FELICIA LIPID #### [facility] [address] [place] [address] Dr. Lauryn Chapman Cholesterol in HDL [Mass/Vol] 33 mg/dL Critically low 40-60 [facility] Comment on above: Performed By: #### L FELICIA, LIPID #### [facility] [address] [address] [address] Lauryn Chapman Cholesterol in LDL [Mass/Vol] 30.2 mg/dL Normal [facility] Comment on above: Performed By: #### L IVLETTY, LIPID #### [facility] [address] [place] [address] Dr. Lauryn Chapman Cholesterol.total/Ch olesterol in HDL [Mass ratio] 3.2 {ratio} Normal [facility] Comment on above: Performed By: #### L IVLETTY, LIPID #### [facility] [address] [place] [address] Dr. Lauryn Chapman HDL NORMAL > or = 60 mg/dl - LOW CARDIOVASCULAR RISK <40 mg/dl - HIGH CARDIOVASCULAR RISK Normal [facility] Comment on above: Performed By: #### L IVER, LIPID #### [facility] [address] [address] [address] Lauryn Chapman LDL CALC NORMAL SEE BELOW Normal [facility] Comment on above: Result Comment: <100 mg/dl OPTIMAL 100 - 129 mg/dl NEAR OR ABOVE OPTIMAL 130 - 159 mg/dl BORDERLINE HIGH 160 - 189 mg/dl HIGH >190 mg/dl VERY HIGH Performed By: #### L IVER, LIPID #### [facility] [address] [address] [address] Lauryn Chapman Triglyceride [Mass/Vol] 214 mg/dL Critically high <=150 [facility] Comment on above: Performed By: #### L IVER, LIPID #### [facility] [address] [address] [address] Lauryn Chapman VLDL CALC 42.8 mg/dL Normal [facility] Comment on above: Performed By: #### L IVER, LIPID #### [facility] [address] [address] [address] Lauryn Chapman LIVER PROFILEon 08-28-2022 Albumin [Mass/Vol] 3.6 g/dL Normal 3.4-5.0 [facility] Comment on above: Performed By: #### L IVER, LIPID #### [facility] [address] [address] [address] Lauryn Chapman Albumin/Globulin [Mass ratio] 1.1 {ratio} Normal [facility] Comment on above: Performed By: #### L IVER, LIPID #### [facility] [address] [address] [address] Lauryn Chapman ALP [Catalytic activity/Vol] 73 U/L Normal 46-116 [facility] Comment on above: Performed By: #### L IVER, LIPID #### [facility] [address] [address] [address] Lauryn Chapman ALT [Catalytic activity/Vol] 48 U/L Normal 16-63 [facility] Comment on above: Performed By: #### L IVER, LIPID #### [facility] [address] [address] [address] Lauryn Chapman AST [Catalytic activity/Vol] 24 U/L Normal 15-37 [facility] Comment on above: Performed By: #### L IVER, LIPID #### [facility] [address] [place] [address] Dr. Lauryn Chapman BILI, CONJUGATED 0.1 mg/dL Normal 0.0-0.2 [facility] Comment on above: Performed By: #### L IVER, LIPID #### [facility] [address] [place] [address] Dr. Lauryn Chapman Bilirubin [Mass/Vol] 0.5 mg/dL Normal 0.2-1.0 [facility] Comment on above: Performed By: #### L IVER, LIPID #### [facility] [address] [place] [address] Dr. Lauryn Chapman Globulin (S) [Mass/Vol] 3.4 g/dL Normal [facility] Comment on above: Performed By: #### L IVER, LIPID #### [facility] [address] [place] [address] Dr. Lauryn Chapman Protein [Mass/Vol] 7.0 g/dL Normal 6.4-8.2 [facility] Comment on above: Performed By: #### L IVER, LIPID #### [facility] [address] [place] [address] Dr. Lauryn Chapman BASIC METABOLIC PANELon 12-18 Calcium [Mass/Vol] 8.3 mg/dL Low 8.6-10.3 [facility] Comment on above: Order Comment: No: D o not add to previous draw Performed By: #### 0 0071 #### [facility] [address] [place] [address], [facility] Chloride [Moles/Vol] 109 mmol/L High 98-107 [facility] Comment on above: Order Comment: No: D o not add to previous draw Performed By: #### 0 0071 #### [facility] [address] [place] [address], [place] CO2 [Moles/Vol] 20 mmol/L Low 21-31 [facility] Comment on above: Order Comment: No: D o not add to previous draw Performed By: #### 0 0071 #### [facility] [address] [place] [address], [place] Creatinine [Mass/Vol] 0.76 mg/dL Normal 0.70-1.30 [facility] Comment on above: Order Comment: No: D o not add to previous draw Performed By: #### 0 0071 #### [facility] [address] [place] [address], [place] GFR/1.73 sq M.predicted among blacks MDRD (S/P/Bld) [Vol rate/Area] mL/min/{1.73_m2} Normal >60 [facility] Comment on above: Order Comment: No: D o not add to previous draw Performed By: #### 0 0071 #### [facility] [address] [place] [address], [place] GFR/1.73 sq M.predicted among non-blacks MDRD (S/P/Bld) [Vol rate/Area] mL/min/{1.73_m2} Normal >60 [facility] Comment on above: Order Comment: No: D o not add to previous draw Performed By: #### 0 0071 #### [facility] [address] [place] [address], [place] Glucose [Mass/Vol] 146 mg/dL High 70-100 [facility] Comment on above: Order Comment: No: D o not add to previous draw Performed By: #### 0 0071 #### [facility] [address] [place] [address], [place] Potassium [Moles/Vol] 4.0 mmol/L Normal 3.5-5.1 [facility] Comment on above: Order Comment: No: D o not add to previous draw Performed By: #### 0 0071 #### [facility] [address] [place] [address], [facility] Sodium [Moles/Vol] 136 mmol/L Normal 136-[address] [facility] Comment on above: Order Comment: No: D o not add to previous draw Performed By: #### 0 0071 #### [facility] [address] [place] [address], [facility] Urea nitrogen [Mass/Vol] 12 mg/dL Normal 7-25 [facility] Comment on above: Order Comment: No: D o not add to previous draw Performed By: #### 0 0071 #### [facility] [address] [place] [address], [facility] CBC COMPLETE BLOOD COUNTon 0 - Erythrocyte distribution width (RBC) [Ratio] 16.8 % High 11.5-15.0 [facility] Comment on above: Order Comment: No: D o not add to previous draw Performed By: #### 5 [id number] #### [facility] [address] [place] [address], [facility] Hematocrit (Bld) [Volume fraction] 42.4 % Normal 39.0-50.0 [facility] Comment on above: Order Comment: No: D o not add to previous draw Performed By: #### 5 [id number] #### [facility] [address] [place] [address], [facility] Hemoglobin (Bld) [Mass/Vol] 13.6 g/dL Normal 13.0-17.0 [facility] Comment on above: Order Comment: No: D o not add to previous draw Performed By: #### 5 [id number] #### [facility] [address] [place] [address], [place] MCH (RBC) [Entitic mass] 23.8 pg Low 27.0-33.0 [facility] Comment on above: Order Comment: No: D o not add to previous draw Performed By: #### 5 [id number] #### [facility] [address] [place] [address], [facility] MCHC (RBC) [Mass/Vol] 32.1 g/dL Normal 32.0-35.0 [facility] Comment on above: Order Comment: No: D o not add to previous draw Performed By: #### 5 [id number] #### [facility] [address] [place] [address], [facility] MCV (RBC) [Entitic vol] 74.3 fL Low 82.0-98.0 [facility] Comment on above: Order Comment: No: D o not add to previous draw Performed By: #### 5 [id number] #### [facility] [address] Nucleated RBC/100 WBC (Bld) [Ratio] 0 % Normal 0-0 [facility] Comment on above: Order Comment: No: D o not add to previous draw Performed By: #### 5 [id number] #### [facility] [address] [place] [address], [facility] PLAT CNT 186 10*3/uL Normal 150-400 [facility] Comment on above: Order Comment: No: D o not add to previous draw Performed By: #### 5 [id number] #### [facility] [address] [place] [address], [facility] RBC (Bld) [#/Vol] 5.71 10*6/uL High 4.20-5.70 [facility] Comment on above: Order Comment: No: D o not add to previous draw Performed By: #### 5 [id number] #### [facility] [address] [place] [address], [facility] WBC (Bld) [#/Vol] 6.12 10*3/uL Normal 4.00-10.60 [facility] Comment on above: Order Comment: No: D o not add to previous draw Performed By: #### 5 [id number] #### [facility] [address] [place] [address], [facility] Cardiovascular Lab Reporton 12-26-2021 Cardiovascular Lab Report [facility] Patient Name: [facility] MR #: [id number] Physician: Akosua Saucedo, Department of M.D. Medicine Service Date: 12/26/2021 Division of Birthdate: 1960 Cardiology Room #: Adult Cardiovascular Services [facility] [address] [address] [place] [address] Cardiovascular Laboratory Report FINAL IMPRESSIONS: 1. Severe [...] the left radial artery was obtained. A 6-Algerian glide sheath was inserted without difficulty. Bilateral selective coronary angiography was performed using JL4 and JR4 catheters. After reviewing the images, it was elected to proceed with the physiological assessment of the left anterior descending. A 6-Algerian XB3.5 guide catheter was advanced over a [...] No (more content not included)... Normal [facility] Vital Signs Date Time Vital Sign Value Performing Clinician Facility 03-17-2024 08:23-0400 Body height 182.88 cm [facility] 03-17-2024 08:23-0400 Body mass index (BMI) [Ratio] 35.4 kg/m2 [facility] 03-17-2024 08:23-0400 Body weight 118.5 kg [facility] 03-17-2024 08:23-0400 Diastolic blood pressure 89 mm[Hg] [facility] 03-17-2024 08:23-0400 Heart rate 67 /min [facility] 03-17-2024 08:23-0400 Respiratory rate 18 /min [facility] 03-17-2024 08:23-0400 SaO2% (BldA) [Mass fraction] 98 % [facility] 03-17-2024 08:23-0400 Systolic blood pressure 131 mm[Hg] [facility] 12-11-2023 10:57-0500 Body height 182.88 cm [facility] 12-11-2023 10:57-0500 Body mass index (BMI) [Ratio] 36 kg/m2 [facility] 12-11-2023 10:57-0500 Body weight 120.4 kg [facility] 12-11-2023 10:57-0500 Diastolic blood pressure 80 mm[Hg] [facility] 12-11-2023 10:57-0500 Heart rate 66 /min [facility] 12-11-2023 10:57-0500 Respiratory rate 18 /min [facility] 12-11-2023 10:57-0500 SaO2% (BldA) [Mass fraction] 98 % [facility] 12-11-2023 10:57-0500 Systolic blood pressure 132 mm[Hg] [facility] 09-02-2023 10:15-0500 Body height 182.88 cm Belkis Scally Other [facility] Other 09-02-2023 10:15-0500 Body mass index (BMI) [Ratio] 37.85 kg/m2 Belkis Scally Other [facility] Other 09-02-2023 10:15-0500 Body weight 126.6 kg Belkis Scally Other [facility] Other 09-02-2023 10:15-0500 Diastolic blood pressure 79 mm[Hg] Belkis Scally Other [facility] Other 09-02-2023 10:15-0500 Respiratory rate 18 /min Belkis Scally Other [facility] Other 09-02-2023 10:15-0500 SaO2% (BldA) [Mass fraction] 97 % Belkis Scally Other [facility] Other 09-02-2023 10:15-0500 Systolic blood pressure 131 mm[Hg] Belkis Scally Other [facility] Other 07-23-2023 08:45-0400 Body height 182.88 cm Belkis Scally Other [facility] Other 07-23-2023 08:45-0400 Body mass index (BMI) [Ratio] 37.85 kg/m2 Belkis Scally Other [facility] Other 07-23-2023 08:45-0400 Body weight 126.6 kg Belkis Scally Other [facility] Other 07-23-2023 08:45-0400 Diastolic blood pressure 88 mm[Hg] Belkis Scally Other [facility] Other 07-23-2023 08:45-0400 Respiratory rate 18 /min Belkis Scally Other [facility] Other 07-23-2023 08:45-0400 SaO2% (BldA) [Mass fraction] 98 % Belkisyu Rosas Other [facility] Other 07-23-2023 08:45-0400 Systolic blood pressure 137 mm[Hg] Belkis Dexterly Other [facility] Other Encounters Encounter Date Encounter Type Care Provider Facility Start: 03-17-2024 End: 03-17-2024 ambulatory [facility] Work Phone: Start: 03-17-2024 End: 03-17-2024 Patient encounter procedure [facility] Physician [facility] Work Phone: Start: 12-11-2023 End: 12-11-2023 ambulatory [facility] Work Phone: Start: 12-11-2023 End: 12-11-2023 Patient encounter procedure [facility] Physician [facility] Work Phone: Start: 11-10-2023 End: 11-10-2023 ambulatory [facility] Start: 09-02-2023 (DM) Diabetes [facility] Start: 09-02-2023 End: 09-03-2023 ambulatory Raya Dye [facility] Other Start: 07-24-2023 End: 07-24-2023 ambulatory Belkis Rosas Other [facility] Other Start: 07-24-2023 Telephone encounter Belkis [facility]k [facility] Start: 07-23-2023 (DM) Diabetes Belkis Rosas [facility] Start: 07-23-2023 End: 07-23-2023 ambulatory Belkis Rosas Other [facility] Other Start: 06-03-2023 End: 06-03-2023 ambulatory Belkis Rosas Other [facility] Other Start: 06-03-2023 Telephone encounter [facility] Start: 04-14-2023 End: 04-14-2023 ambulatory [facility] Start: 02-21-2023 Encounter for genera l adult medical examination without abnormal findings DR RAYA DYE . [facility] Start: 02-18-2023 End: 02-18-[address] RAYA DYE . Facility:[facility] Start: 02-18-2023 End: 02-18-2023 Encounter for general adult medical examination without abnormal findings DR RAYA DYE . Facility:[facility] Start: 02-12-2023 End: 02-13-[address] RAYA DYE . Facility:[facility] Start: 01-29-2023 End: 01-29-[facility]23 [facility] Start: 11-20-2022 End: 11-21-2022 ambulatory RAKESH GAO Facility:[facility] Start: 11-11-2022 End: 11-11-2022 ambulatory RAKESH GAO [facility] Start: 10-16-2022 End: 10-17-2022 ambulatory RAKSEH GAO Facility:[facility] Start: 08-28-2022 End: 08-29-[address] AKOSUA SAUCEDO Facility:[facility] Start: 03-20-[address] AKOSUA SAUCEDO Facili ty:[facility] Start: 12-26-2021 End: 12-27-2021 ambulatory AKOSUA SAUCEDO Facility:[facility] Procedures Date Procedure Procedure Detail Performing Clinician Start: 02-12-[address] AKOSUA DELUCA Comment on above: Performed By: #### P [place] #### [facility] [address] [address] [address] Lauryn Chapman Plan of Treatment Date Care Activity Detail Author Comprehensive metabo lic 1999 panel - Serum or Plasma [facility] enter Comprehensive metabo lic 1999 panel - Serum or Plasma [facility] enter [facility] Payers Date Payer Category Payer Medicare [id number] 2.1 [id number] 1959 Private Health Insurance [id number] 1959 Private Health Insurance [id number] 1961 Self-pay 1960 Unknown [id number] 2.16.8 [id number] 1960 Unknown [id number] 2.16.84 [id number] 1960 Unknown [id number] 2.16.84 [id number] 1960 Unknown [id number] 2.16.84 [id number] 1960 Unknown [id number] 2.16.84 [id number] 1960 Unknown [id number] 2.16.84 [id number] 1960 Unknown [id number] 2.16.84 [id number] 1960 Unknown [id number] 2.16.84 [id number] Private Health Insurance [id number] Unknown [id number] 2.16.8 [id number] Social History Date Type Detail Facility Sex Assigned At [facility] Other Start: 1960 Sex Assigned At Male F [facility] Start: 12-11-2023 End: 12-11-2023 Tobacco smoking status NHIS Never smoked tobacco (finding) [facility] Medical Equipment Procedure Code Equipment Code Equipment Origin al Text Equipment Identifier Dates Start: 05-28-2023 lancets (Comfort Touch Ult Thin Lancets) Start: 12-10-2023 lancets (Comfort Touch Ult Thin Lancets) Start: 12-10-2023 lancets (Comfort Touch Ult Thin Lancets) Start: 12-10-2023 Clinical Notes 11-11-2022 to 11-10-2023 Note Date & Type Note Facility 11-10-2023 Note [facility] Cardiology Clinic Note Chief Complaint: Patient here for 6 mo follow up CAD, hypertension, and dyslipidemia. He continues to lose weight and is now seeing an receptionist airline lounge. He started him on Jardiance. Still goes to the gym 4-5 days a week. Denies chest pain, SOB, lightheadedness, and palpitations. No blood work or testing since last visit in March 2023. HPI: Tiffanie Mcknight is a 63 y.o. male He continues to lose weight and is now seeing an receptionist airline lounge. He started him on Jardiance. Still goes [...] should problems arise Akosua Saucedo MD, MPH, [facility], [facility], [facility] Interventional Cardiology Pager Email: [email or web address] 09-02-2023 Evaluation note Encounter Date Diagnosis Assessment [...] diabetes medication issues. 6. Prescriptions: Patient uses [facility] Aug, Hyperlipidemia, unspecified hyperlipidemia type (ICD-10 - [...] UTD for patient hypertriglyceride provided and reviewed. [facility] Other 10-04-2023 Evaluation note* Encounter Date Diagnosis [...] diabetes medication issues. 6. Prescriptions: Patient uses [facility] Jul, Hyperlipidemia, unspecified hyperlipidemia type (ICD-10 - [...] Jul, BMI 37.0-37.9, adult (ICD-10 - Z68.37) [facility] Other 08-15-2023 Evaluation note* Encounter Date Diagnosis Assessment Notes Treatment Notes Treatment Clinical Notes May, Type 2 diabetes mellitus with hyperglycemia, without long-term current use of insulin (ICD-10 - E11.65) [facility] [...] family physician and consider referral to an receptionist airline lounge. Fortunately, his son-in-law is a para educator in the office of an receptionist airline lounge. I have asked him to discuss diabetes [...] in 6 months or sooner should [facility] NotechUnCincinnati [facility]04-[facility] Chief Complaint: Patient here for 3 mo follow up hypertension, CAD, and hyperlipidemia. Losartan was increased to 75mg daily at last apt in Oct 2022 by Rossy aGo CNP. He doesn't think it's helped a [...] blood pressure readings Akosua Saucedo MD, MPH, [facility], [facility], [facility] Interventional Cardiology Pager Email: [email or web address]01-23-2023 NoteContinue statinUnCincinnati VA Medical Center01-23-2023 Note Hypertension is uncontrolled- 147/81 in office PT to take b/p cuff back to pharmacy and have size checked Will increase losaratan to 75 mg daily, repeat bmp in 1 week to assess renal function Continue coreg 25 mg bid- d/w pt to call if brain fog or fatigue affects daily activity [facility]01-23-2023 NoteCoronary artery disease is stable Continue GDMT- ASA lifelong, d/w pt he may stop plavix December- 1 year post stent, and continue coreg. Call office for any concernsUnCincinnati VA Medical Center01-23-2023 Note Patient here for follow up hypertension. [...] Systems All other systems reviewed and are negative.[facility] 11-11-2022 NoteUTP CARDIOLOGY PROGRESS NOTE HPI: [...] 12 months Assessment/Plan: Coronary artery disease involving [place] coronary artery of [place] heart without angina pectoris Coronary artery disease [...] pt in 1-2 weeks to review B/P logUnCincinnati VA Medical CenterChief complaint+Reason for visit Narrative* Chief Complaint DMN f/u-METER Reason for Visit BMI 37.0-37.9, adult Dietary counseling and surveillance Hyperlipemia Hypertension Hypertriglyceridemia Hypothyroidism Type 2 diabetes mellitus Type 2 diabetes mellitus with hyperglycemia Vitamin D deficiency [facility] Work Phone: Evaluation noteNo InformationNortEllwood [facility] Other Evaluation noteNo assessment information available [facility] Work Phone: Evaluation note* Diagnosis Onset Date Resolution Status Type 2 diabetes mellitus acu te [facility] Work Phone: Evaluation note* Diagnosis Onset Date Resolution Status BMI 37.0-37.9, adult acute Dietary counseling and surveillance acute Hyperlipemia acute Hypertension acute Hypertriglyceridemia acute Hypothyroidism acute Type 2 diabetes mellitus acu te Type 2 diabetes mellitus with hyperglycemia acute Vitamin D deficiency acute [facility] Work Phone: History general Narrative - Reported* Type Description Date Medical History Hypothyroidism Medical History high blood pressure Medical History high triglycerides Surgical History tonsillectomy 1966 Surgical History exploratory lap 2020 Surgical History cardiac stent 2020 Hospitalization History Abd/ chest pain 2020 [facility] I'mOK Other Reason for visit NarrativeDM, DISCUSS YEARLY DIABETIC EYE EXAMS, UMIC TODAY, NEEDS FOOT CHECK, Self Referral Type [facility] JiaThis Other Renyfd for visit NarrativeDM, DISCUSS YEARLY DIABETIC EYE EXAMS, Self Referral Type [facility] Other Summary Purpose Family History Relationship Condition [...] and content) DATE CREATED AUTHOR 01/01/2022 [facility] DATE CREATED AUTHOR AUTHOR'S ORGANIZ ATION 03/01/2023 [facility] DATE CREATED AUTHOR AUTHOR'S ORGANIZ ATION 11/10/2023 [facility] DATE CREATED AUTHOR AUTHOR'S ORGANIZ ATION 12/18/2023 [facility] DATE CREATED AUTHOR AUTHOR'S ORGANIZ ATION 03/16/2024 [facility] REASON FOR VISIT (unrecogniz ed [...] BE BASED ON THE PRIMARY CLINICAL RECORDS. [employer] provides no warranty or guarantee of the accuracy or completeness of information in this document.
[2024-09-15 10:47] LABS: Creatinine Urine Random 94.15 mg/dL (20.00-300.00); Microalbum Creatinine Ratio Ur 29.7 mg/g (0.0-29.9); Microalbumin Urine Random 2.8 mg/dL (<=30.0)
[2024-09-15 10:58] LABS: Alanine Aminotransferase 35 U/L (16-63); Albumin Globulin Ratio 1.1; Albumin Level 3.7 g/dL (3.4-5.0); Alkaline Phosphatase 62 U/L (46-116); Anion Gap 17.3; Aspartate Amino Transferase 18 U/L (15-37); BUN Creatinine Ratio 23.4; Bilirubin Total 0.6 mg/dL (0.2-1.0); Calcium 9.1 mg/dL (8.5-10.1); Carbon Dioxide 23.4 mmol/L (21.0-32.0); Chloride 102 mmol/L (98-107); Chol HDL Ratio 4.3; Cholesterol 164 mg/dL (<=200); Estimated GFR (African America >60 (>=60 mL/min/1.73m^2); Estimated GFR (Non-African Ame >60 (>=60 mL/min/1.73m^2); Globulin 3.5 g/dL; Glucose 146 mg/dL (74-106); HDL Cholesterol 38 mg/dL (40-60); Potassium 3.7 mmol/L (3.5-5.1); Sodium 139 mmol/L (136-145); TSH W/ REFLEX FT4 3.435 uIU/mL (0.358-3.740); Total Protein 7.2 g/dL (6.4-8.2); Triglycerides 410 mg/dL (<=150)
[2024-09-15 11:20] LABS: LDL Cholesterol Direct 79 mg/dL
[2024-09-16 04:07] LABS: Vitamin B12 362 pg/mL (232-1245)
== END 2024-09-15 09:47 | disposition home or self-care (01) ==
LOC: LAB 09:48
PROVIDERS: PCP Family Medicine; Visit Provider Nurse Practitioner Family
DX: E55.9 Vitamin D deficiency, unspecified (principal); E78.5 Hyperlipidemia, unspecified; E11.65 Type 2 diabetes mellitus with hyperglycemia; Z68.37 Body mass index [BMI] 37.0-37.9, adult
CPT/HCPCS: 36415; 80053; 80061; 82043; 82306; 82570; 82607; 83721; 84443

== ENCOUNTER 2025-05-16 11:29 | Outpatient (OUT) | payer MEDICARE, OTHER, SELFPAY ==
--- OUTSIDE RECORDS SUMMARY | 2025-05-16 11:48 | XMS_ITS | CCD ---
Author Organization [facility] Care Team Providers Care Supervisor Metal [employer] Name Role Phone ADITYA SAUCEDOAB Augustine Attending Unavailable ELTAHAWYADITYAAB A Admitting Unavailable RAYA DYE Referring Unavailable [...] HOY ., DR DOS SANTOS Consulting Unavailable Belkis Rosas Unavailable Raya Dye Primary Care Unavailable Belkis Rosas Attending Unavailable Belkis Rosas Admitting Unavailable ELTAHAWY, ADITYAAB Attending Unavailable Raya Dye MD Primary Care Provider [phone] Belkis Rosas APRN Attending Provider Medications Current Medications Medication Drug Class(es) Dates Sig (Normalized) Sig (Original) aspirin 81 mg chewable tablet (9 sources) Platelet Aggregation Inhibitor, Nonsteroidal Anti-inflammatory Drug Start: 12-10-2023 take 1 tablet by mouth once daily Aspirin 81 mg tablet,chewable Active 81 MG PO Daily December 10, 2023 1:00am Complies with drug therapy take 1 tablet by gabby th every twenty-four hours Aspirin 81 81 MG 1 tablet Orally Once a day Active take 1 tablet by mouth once vonda y Aspirin 81 81 MG 1 tablet Orally Once a day Active Blood-Glucose Meter (Onetouc h Ultra2 Meter) misc (3 sources) Start: 12-22-2024 Blood-Glucose Meter (Onetouch Ultra2 Meter) misc Active 0 .Route 1 December 22, 2024 8:46am As directed test blood sugar once daily Start: 12-20-2024 End: 12-22-2024 Blood-Glucose Meter (Onetouc h Ultra2 Meter) misc Discontinued 0 .Route 1 December 20, 2024 10:49am December 22, 2024 8:46am As directed test blood sugar three times daily Start: 12-20-2024 End: 12-20-2024 Blood-Glucose Meter (Onetouc h Ultra2 Meter) misc Discontinued 0 .Route December 20, 2024 1:00am December 20, 2024 10:57am As directed carvedilol 25 mg oral tablet (9 sources) alpha-Adrenergic Adriano, beta-Adrenergic Adriano Start: 12-10-2023 take 1 tablet by mouth twice daily Carvedilol 25 mg tablet Active 25 MG PO Twice daily December 10, 2023 1:00am Complies with drug therapy take 1 tablet by gabby th every twelve hours Carvedilol 25 MG 1 tablet with food Oral ly Twice a day Active cholecalciferol 0.05 mg oral capsule (2 sources) Vitamin D Start: 12-20-2024 take 1 capsule by mouth once daily Cholecalciferol (Vitamin D3) 50 mcg (2,000 unit) capsule Active 50 MCG PO Daily December 20, 2024 1:00am Complies with drug therapy empagliflozin 25 mg oral tablet (18 sources) Sodium-Glucose Cotransporter 2 Inhibitor Start: 06-29-2024 take 1 tablet by mouth once daily Empagliflozin (Jardiance) 25 mg tablet Active 0 .ROUTE .COMPLEX 90 June 29, 2024 5:08pm TAKE 1 TABLET BY MOUTH EVERY DAY Complies with drug therapy Start: 12-10-2023 End: 06-29-2024 take 1 tablet by mouth once daily Empagliflozin (Jardiance) 25 mg tablet Discontinued 25 MG PO Daily 90 March 17, 2024 8:28am June 29, 2024 5:08pm Start: 05-28-2023 take 1 tablet by gabby th every twenty-four hours Jardiance 10 MG 1 tablet Orally Once a day for 14 days samples May, Active Start: 05-28-2023 take 1 tablet by gabby th every twenty-four hours Jardiance 25 MG 1 tablet Orally Once a day for 30 days Started on samples May, Active levothyroxine sodium 0.025 mg oral tablet (9 sources) l-Thyroxine Start: 12-10-2023 take 1 tablet by mouth once daily Levothyroxine 25 mcg tablet Active 25 MCG PO Daily December 10, 2023 1:00am Complies with drug therapy take 1 tablet by gabby once daily in the morning Levothyroxine Sodium 25 MCG 1 tablet in the morning on an empty stomach Orally Once a day Active take 1 tablet by gabby th once daily in the morning Levothyroxine Sodium 25 MCG 1 tablet in the morning on an empty stomach Orally Once a day Active liothyronine sodium 0.005 mg oral tablet (9 sources) l-Triiodothyronine Start: 12-10-2023 take 1 tablet by mouth once daily Liothyronine 5 mcg tablet Active 5 MCG PO Daily December 10, 2023 1:00am Complies with drug therapy take 1 tablet by gabby th every twenty-four hours Liothyronine Sodium 5 MCG 1 tablet on an empty stomach Orally Once a day Active take 1 tablet by gabby th every twenty-four hours Liothyronine Sodium 5 MCG 1 tablet on an empty stomach Orally Once a day Active losartan potassium 50 mg oral tablet (9 sources) Angiotensin 2 Receptor Adriano Start: 12-10-2023 take 1 tablet by mouth once daily Losartan 50 mg tablet Active 50 MG PO Daily December 10, 2023 1:00am Complies with drug therapy take 1 tablet by gabby th every twenty-four hours Losartan Potassium 50 MG 1 tablet Orally Once a day Active metFORMIN hydrochloride 500 mg oral tablet (14 sources) Biguanide Start: 08-11-2024 take 1 tablet by mouth twice daily Metformin 500 mg tablet Active 0 .ROUTE .COMPLEX 180 August 11, 2024 12:56pm TAKE 1 TABLET BY MOUTH TWICE A DAY Complies with drug therapy Start: 12-10-2023 End: 08-11-2024 take 1 tablet by mouth twice daily Metformin 500 mg tablet Discontinued 500 MG PO Twice daily 180 90 March 17, 2024 8:29am August 11, 2024 12:57pm take 1 tablet by gabby th every twelve hours metFORMIN HCl 500 MG 1 tablet with a meal Orally bid Active Lincoln 7-Rdq-Ufg-Fish Oil (Fish Oil) 1,000 (120-180) mg capsule (2 sources) Start: 12-20-2024 take 2 capsules by mouth once daily Lincoln 6-Nwx-Hhg-Fish Oil (Fish Oil) 1,000 (120-180) mg capsule Active 2 CAP PO Daily December 20, 2024 1:00am Complies with drug therapy Start: 12-20-2024 take 2 capsules by m outh once daily [place] 6-New-Ppz-Fish Oil (Fish Oil) 1,000 (120-180) mg capsule Active 2 CAP PO Daily December 20, 2024 12:00am simvastatin 20 mg oral tablet (2 sources) HMG-CoA Reductase Inhibitor Start: 12-20-2024 take 1 tablet by mouth once daily Simvastatin 20 mg tablet Active 20 MG PO Daily December 20, 2024 1:00am Complies with drug therapy Tirzepatide (3 sources) Start: 04-18-2025 Tirzepatide (Mounjaro) 2.5 mg/0.5 mL pen injector Active 2.5 MG SUBCUT every week 6 April 18, 2025 8:46am Complies with drug therapy Start: 09-15-2024 End: 04-18-2025 Tirzepatide (Mounjaro) 2.5 m g/0.5 mL pen injector Discontinued 2.5 MG SUBCUT every week 2 September 15, 2024 1:00am April 18, 2025 8:47am will have voucher for 1st 4 weeks Start: 09-15-2024 Tirzepatide (M ounjaro) 2.5 mg/0.5 mL pen injector Active 2.5 MG SUBCUT every week 2 September 15, 2024 12:00am will have voucher for 1st 4 weeks Completed/Discontinued Medications Medication Drug Class(es) Dates Sig (Normalized) Sig (Original) blood sugar diagnostic (Blood Glucose Test) (5 sources) Start: 12-10-2023 End: 06-28-2024 blood sugar diagnostic (Blood Glucose Test) Discontinued .Route December 10, 2023 1:00am June 28, 2024 12:35pm Start: 12-10-2023 End: 06-28-2024 blood sugar diagnostic (Bloo d Glucose Test) Discontinued .Route December 10, 2023 12:00am June 28, 2024 11:35am Start: 12-10-2023 blood sugar di agnostic (Blood Glucose Test) Active .Route December 10, 2023 1:00am Start: 12-10-2023 blood sugar di agnostic (Blood Glucose Test) Active .Route December 10, 2023 12:00am Start: 12-10-2023 blood sugar di agnostic (Blood Glucose Test) Active .ROUTE December 10, 2023 12:00am Problems Problem Classification Problem Date Documented Date Episodic/Chronic Administrative/social admission (10 sources) Dietary counseling and surveillance; Translations: [Patient encounter status] Episodic Coronary atherosclerosis and other heart disease (6 sources) Atherosclerotic heart disease of jena coronary artery without angina pectoris; Translations: [ASHD [place] W/O ANGINA PECTORIS] Onset: 11-11-2022 Chronic Diabetes mellitus with complications (16 sources) Hyperglycemia due to type 2 diabetes mellitus; Translations: [Type 2 diabetes mellitus with hyperglycemia] Onset: 09-02-2023 Chronic Diabetes mellitus without complication (12 sources) Type 2 diabetes mellitus; Translations: [Type 2 diabetes mellitus without complications] 12-11-2023 Chronic Disorders of lipid metabolism (20 sources) Hyperlipidemia, unspecified; Translations: [Hyperlipidemia] Onset: 08-28-2022 Chronic Essential hypertension (19 sources) Essential (primary) hypertension; Translations: [Essential hypertension] Onset: 10-16-2022 Chronic Nutritional deficiencies (14 sources) Vitamin D deficiency; Translations: [Vitamin D deficiency, unspecified] Chronic Other nutritional; endocrine; and metabolic disorders (3 sources) Obese class II; Translations: [Body mass index (BMI) 37.0-37.9, adult] Chronic Other nutritional; endocrine; and metabolic disorders (4 sources) Body mass index (BMI) 37.0-37.9, adult; Translations: [Body Mass Index 37.0-37.9, adult] Chronic Other nutritional; endocrine; and metabolic disorders (6 sources) Body mass index 30+ - obesity; Translations: [Body mass index (BMI) 37.0-37.9, adult] 12-10-2023 Chronic Other screening for suspected conditions (not mental disorders or infectious disease) (1 source) Encounter for screening for malignant neoplasm of prostate; Translations: [ENC SCREEN MALIG NEOPLASM PROSTATE] Onset: 02-15-2023 Episodic Thyroid disorders (8 sources) Hypothyroidism; Translations: [Hypothyroidism, unspecified] 12-10-2023 Chronic Results Test Name Value Interpretation Reference Range Facility Office Visiton 11-15-2024 Follow-up visit [id number] Tiffanie Mcknight 1960 M Date Provider Department Center 11/15/2024 271-AKOSUA SAUCEDO [facility] Family History Problem Relation Age of Onset Atrial fibrillation Mother Other Mother Hypertension Mother Cardiomyopathy Mother Coronary artery disease Mother Stroke Mother Hyperlipidemia Mother Coronary artery disease Father Other Father Family Status - Relation Status Age at Mother Father Level of Service:16032 [place] OFFICE/OUTPATIENT ESTABLISHED LOW MDM 20 MIN Normal [facility] Provider Letteron 03-16-2024 Provider Letter March 16, 2024 TIFFANIE JUAN LUIS [address] [id number] : 1960 Dear Hao Juan Luis, We have been trying to reach you with no success regarding a referral from Dr Dye. It is important that you return our call upon receiving this letter. Also, at the time of your call, please provide us with your current information. Thank you for your prompt attention to this matter. Sincerely, [facility] General Surgery [phone] Normal [facility] Physician Referralon 024 Physician Referral [phone] [id number] [id number] Normal [facility] Physician Referralon 024 Physician Referral [id number] DD#[id number] Normal [facility] A1C HEMOGLOBINon 09-02-2023 HbA1c (Bld) [Mass fraction] 6.9 % [employer] Other Glucose - FINGER STICKon Glucose [Mass/Vol] 240 mg/dL [employer] Other HbA1c (Bld) [Mass fraction]o n 09-02-2023 A1C HEMOGLOBIN [facility] [employer] Other Glucose - FINGER STICKon Glucose [Mass/Vol] 151 mg/dL [place] [employer] Other [employer] Creat Ratio,Uon Albumin DL <= 20 mg/L (U) [Mass/Vol] 1.2099487 mg/dL Normal 0.0-1.8 mg/dL [employer] Other Albumin/Creatinine DL <= 20 mg/L (U) [Mass ratio] 20.548825 mg/g Normal 0.0-30.0 mg/g [employer] Other Creatinine (U) [Mass/Vol] 65.3525742 mg/dL High 14.0-26.0 mg/dL [employer] Other Albumin DL <= 20 mg/L (U) [Mass/Vol] 1.3 mg/dL Normal 0.0-1.8 [facility] Comment on above: Order Comment: Reaso n for Exam Type 2 diabetes mellitus with hyperglycemia, without long-te Performed By: #### U RMACRERAT #### [facility] [address] [place] [address] [place] Creatinine, Urine (Random) 65.0 mg/dL High 14.0-26.0 [facility] Comment on above: Order Comment: Reaso n for Exam Type 2 diabetes mellitus with hyperglycemia, without long-te Performed By: #### U RMACRERAT #### [facility] [address] [id number] [place] Microalbumin/Creatin ine Ratio 20.0 mg/g Normal 0.0-30.0 [facility] Comment on above: Order Comment: Reaso n for Exam Type 2 diabetes mellitus with hyperglycemia, without long-te Result Comment: 30-3 00 mg/g indicates an increased risk for diabetic nephropathy. Greater than 300 mg/g is consistent with clinical nephropathy. (Am. J. Kidney Disease 1995, 25:107) PERFORMED BY: [place] [address] PATHOLOGIST [employer] TEACHER VICK MARTE M.D. Performed By: #### U RMACRERAT #### [address] OCC BLD IMMUNO SCREENon 05-0 OCCULT BLOOD Negative Normal NEGATIVE [facility] Comment on above: Performed By: #### O BSCRN #### [facility] [address] [place] [address] Dr. Lauryn Chapman INSULINon 02-13-2023 Insulin 45.1 uIU/mL Critically high 2.6-24.9 [facility] Comment on above: Performed By: #### I NSULIN #### [facility] [address] [place] [address] Dr. Lauryn Chapman CBC AUTO DIFFon 02-12-2023 BASO # 0.1 103/ul Normal 0.0-0.1 [facility] Comment on above: Performed By: #### O BSCRN #### [facility] [address] [place] [address] Dr. Lauryn Chapman Basophils/100 WBC (Bld) 0.8 % Normal 0.2-2.0 [facility] Comment on above: Performed By: #### O BSCRN #### [facility] [address] [place] [address] Dr. Lauryn Chapman EO # 0.1 103/ul Normal 0.0-0.7 [facility] Comment on above: Performed By: #### O BSCRN #### [facility] [address] [place] [address] Dr. Lauryn Chapman Eosinophils/100 WBC (Bld) 1.9 % Normal 0.9-7.0 [facility] Comment on above: Performed By: #### O BSCRN #### [facility] [address] [place] [address] Dr. Lauryn Chapman Erythrocyte distribution width (RBC) [Ratio] 17.4 % Critically high 11.0-15.0 [facility] Comment on above: Performed By: #### O BSCRN #### [facility] [address] [place] [address] Dr. Lauryn Chpaman Hematocrit (Bld) [Volume fraction] 49.5 % Normal 42.0-54.0 [facility] Comment on above: Performed By: #### O BSCRN #### [facility] [address] [place] [address] Dr. Lauryn Chapman Hemoglobin (Bld) [Mass/Vol] 15.6 g/dL Normal 14.0-18.0 [facility] Comment on above: Performed By: #### O BSCRN #### [facility] [address] [place] [address] Dr. Lauryn Chapman IG # 0.03 10e3/ul Normal 0.00-0.03 [facility] Comment on above: Performed By: #### O BSCRN #### [facility] [address] [place] [address] Dr. Lauryn Chapman IG % 0.4 % Normal 0.0-0.5 [facility] Comment on above: Performed By: #### O BSCRN #### [facility] [address] [place] [address] Dr. Lauryn Champan LYMPH # 1.9 103/ul Normal 1.2-3.8 [facility] Comment on above: Performed By: #### O BSCRN #### [facility] [address] [place] [address] Dr. Lauryn Chapman Lymphocytes/100 WBC (Bld) 25.7 % Normal 20.5-60.0 [facility] Comment on above: Performed By: #### O BSCRN #### [facility] [address] [place] [address] Dr. Lauryn Chapman MANUAL DIFF REQ NO Normal [facility] Comment on above: Performed By: #### O BSCRN #### [facility] [address] [place] [address] Dr. Lauryn Chapman MCH (RBC) [Entitic mass] 23.6 pg Critically low 25.9-34.0 [facility] Comment on above: Performed By: #### O BSCRN #### [facility] [address] [place] [address] Dr. Lauryn Chapman MCHC (RBC) [Mass/Vol] 31.5 g/dL Normal 29.9-35.2 [facility] Comment on above: Performed By: #### O BSCRN #### [facility] [address] [place] [address] Dr. Lauryn Chapman MCV (RBC) [Entitic vol] 74.8 fL Critically low 80.0-94.0 [facility] Comment on above: Performed By: #### O BSCRN #### [facility] [address] [place] [address] Dr. Lauryn Chapman MONO # 0.5 103/ul Normal 0.3-0.8 [facility] Comment on above: Performed By: #### O BSCRN #### [facility] [address] [place] [address] Dr. Lauryn Chapman Monocytes/100 WBC (Bld) 7.3 % Normal 1.7-12.0 [facility] Comment on above: Performed By: #### O BSCRN #### [facility] [address] [place] [address] Dr. Lauryn Chapman NEUT # 4.7 103/ul Normal 1.4-6.5 [facility] Comment on above: Performed By: #### O BSCRN #### [facility] [address] [place] [address] Dr. Lauryn Chapman Neutrophils/100 WBC (Bld) 63.9 % Normal 43.0-75.0 [facility] Comment on above: Performed By: #### O BSCRN #### [facility] [address] [place] [address] Dr. Lauryn Chapman Platelet mean volume (Bld) [Entitic vol] 9.5 fL Normal 9.5-13.5 [facility] Comment on above: Performed By: #### O BSCRN #### [facility] [address] [address] [address] Lauryn Chapman PLT 188 103/ul Normal 150-450 [facility] Comment on above: Performed By: #### O BSCRN #### [facility] [address] [address] [address] Lauryn Chapman RBC 6.62 106/ul Critically high 4.70-6.10 [facility] Comment on above: Performed By: #### O BSCRN #### [facility] [address] [address] [address] Lauryn Chapman WBC 7.4 103/ul Normal 4.0-11.0 [facility] Comment on above: Performed By: #### O BSCRN #### [facility] [address] [place] [address] Dr. Lauryn Chapman DIRECT LDLon 02-12-2023 Cholesterol in LDL [Mass/Vol] 69 mg/dL Normal [facility] Comment on above: Performed By: #### T SH, LIPID, T7, CMP, DLDL, URIC #### [facility] [address] [address] [address] Lauryn Chapman DLDL NORMAL SEE BELOW Normal [facility] Comment on above: Result Comment: <100 mg/dl OPTIMAL 100 - 129 mg/dl NEAR OR ABOVE OPTIMAL 130 - 159 mg/dl BORDERLINE HIGH 160 - 189 mg/dl HIGH >190 mg/dl VERY HIGH Performed By: #### T SH, LIPID, T7, CMP, DLDL, URIC #### [facility] [address] [address] [address] Lauryn Chapman FREE THYROXINE INDEX T7on FTI 2.41 Normal 1.30-4.50 [facility] Comment on above: Performed By: #### O BSCRN #### [facility] [address] [address] [address] Lauryn Chapman T3U 29.0 % Critically low 33.0-40.0 [facility] Comment on above: Performed By: #### O BSCRN #### [facility] [address] [address] [address] Lauryn Chapman T4 [Mass/Vol] 8.30 ug/dL Normal 4.50-12.10 [facility] Comment on above: Performed By: #### O BSCRN #### [facility] [address] [place] [address] Dr. Lauryn Chapman GLYCOHEMOGLOBIN A1Con 2022 ADA RECOMMENDATION SEE BELOW Normal [facility] Comment on above: Result Comment: ADA RECOMMENDED LIMIT 4.0 - 6.0 ADA THERAPEUTIC TARGET < 7.0 ACTION SUGGESTED > 7.0 Performed By: #### A 1C #### [facility] [address] [place] [address] Dr. Lauryn Chapman Glucose [Mass/Vol] 177 mg/dL Normal [facility] Comment on above: Performed By: #### A 1C #### [facility] [address] [place] [address] Dr. Lauryn Chapman HbA1c (Bld) [Mass fraction] 7.8 % Critically high 4.5-6.2 [facility] Comment on above: Performed By: #### A 1C #### [facility] [address] [place] [address] Dr. Lauryn Chapman LIPID PROFILEon 02-12-2023 CHOL-HDL RATIO NORM SEE BELOW Normal [facility] Comment on above: Result Comment: 3.3 - 4.4 LOW RISK 4.4 - 7.1 AVERAGE RISK 7.1 - 11.0 MODERATE RISK >11.0 HIGH RISK Performed By: #### T SH, LIPID, T7, CMP, DLDL, URIC #### [facility] [address] [place] [address] Dr. Lauryn Chapman Cholesterol [Mass/Vol] 186 mg/dL Normal <=200 [facility] Comment on above: Performed By: #### T SH, LIPID, T7, CMP, DLDL, URIC #### [facility] [address] [place] [address] Dr. Lauryn Chapman Cholesterol in HDL [Mass/Vol] 33 mg/dL Critically low 40-60 [facility] Comment on above: Performed By: #### T SH, LIPID, T7, CMP, DLDL, URIC #### [facility] [address] [address] [address] Lauryn Chapman Cholesterol.total/Ch olesterol in HDL [Mass ratio] 5.6 {ratio} Normal [facility] Comment on above: Performed By: #### T SH, LIPID, T7, CMP, DLDL, URIC #### [facility] [address] [address] [address] Lauryn Chapman HDL NORMAL > or = 60 mg/dl - LOW CARDIOVASCULAR RISK <40 mg/dl - HIGH CARDIOVASCULAR RISK Normal [facility] Comment on above: Performed By: #### T SH, LIPID, T7, CMP, DLDL, URIC #### [facility] [address] [address] [address] Lauryn Chapman Triglyceride [Mass/Vol] 699 mg/dL Critically high <=150 [facility] Comment on above: Performed By: #### T SH, LIPID, T7, CMP, DLDL, URIC #### [facility] [address] [address] [address] Lauryn Chapman VLDL CALC 139.8 mg/dL Normal [facility] Comment on above: Performed By: #### T SH, LIPID, T7, CMP, DLDL, URIC #### [facility] [address] [place] [address] Dr. Lauryn Chapman PROF 14(COMP METB)on 023 Albumin [Mass/Vol] 3.9 g/dL Normal 3.4-5.0 [facility] Comment on above: Performed By: #### T SH, LIPID, T7, CMP, DLDL, URIC #### [facility] [address] [address] [address] Lauryn Chapman Albumin/Globulin [Mass ratio] 1.0 {ratio} Normal [facility] Comment on above: Performed By: #### T SH, LIPID, T7, CMP, DLDL, URIC #### [facility] [address] [address] [address] Lauryn Chapman ALP [Catalytic activity/Vol] 71 U/L Normal 46-116 [facility] Comment on above: Performed By: #### T SH, LIPID, T7, CMP, DLDL, URIC #### [facility] [address] [address] [address] Lauryn Chapman ALT [Catalytic activity/Vol] 62 U/L Normal 16-63 [facility] Comment on above: Performed By: #### T SH, LIPID, T7, CMP, DLDL, URIC #### [facility] [address] [address] [address] Lauryn Chapman Anion gap [Moles/Vol] 14.2 mmol/L Normal [facility] Comment on above: Performed By: #### T SH, LIPID, T7, CMP, DLDL, URIC #### [facility] [address] [place] [address] Dr. Lauryn Chapman AST [Catalytic activity/Vol] 30 U/L Normal 15-37 [facility] Comment on above: Performed By: #### T SH, LIPID, T7, CMP, DLDL, URIC #### [facility] [address] [place] [address] Dr. Lauryn Chapman Bilirubin [Mass/Vol] 0.6 mg/dL Normal 0.2-1.0 [facility] Comment on above: Performed By: #### T SH, LIPID, T7, CMP, DLDL, URIC #### [facility] [address] [place] [address] Dr. Lauryn Chapman Calcium [Mass/Vol] 9.3 mg/dL Normal 8.5-10.1 [facility] Comment on above: Performed By: #### T SH, LIPID, T7, CMP, DLDL, URIC #### [facility] [address] [place] [address] Dr. Lauryn Chapman Chloride [Moles/Vol] 99 mmol/L Normal 98-107 [facility] Comment on above: Performed By: #### T SH, LIPID, T7, CMP, DLDL, URIC #### [facility] [address] [place] [address] Dr. Lauryn Chapman CO2 [Moles/Vol] 27.1 mmol/L Normal 21.0-32.0 [facility] Comment on above: Performed By: #### T SH, LIPID, T7, CMP, DLDL, URIC #### [facility] [address] [place] [address] Dr. Lauryn Chapman Creatinine [Mass/Vol] 1.06 mg/dL Normal 0.70-1.30 [facility] Comment on above: Performed By: #### T SH, LIPID, T7, CMP, DLDL, URIC #### [facility] [address] [place] [address] Dr. Lauryn Chapman EGFR-AF NEPALESE >60 Normal >=60 [facility] Comment on above: Performed By: #### T SH, LIPID, T7, CMP, DLDL, URIC #### [facility] [address] [place] [address] Dr. Lauryn Chapman EGFR-NON AF NEPALESE >60 Normal >=60 [facility] Comment on above: Performed By: #### T SH, LIPID, T7, CMP, DLDL, URIC #### [facility] [address] [place] [address] Dr. Lauryn Chapman Globulin (S) [Mass/Vol] 3.9 g/dL Normal [facility] Comment on above: Performed By: #### T SH, LIPID, T7, CMP, DLDL, URIC #### [facility] [address] [place] [address] Dr. Lauryn Chapman Glucose [Mass/Vol] 167 mg/dL Critically high 74-106 [facility] Comment on above: Performed By: #### T SH, LIPID, T7, CMP, DLDL, URIC #### [facility] [address] [place] [address] Dr. Lauryn Chapman Potassium [Moles/Vol] 4.3 mmol/L Normal 3.5-5.1 [facility] Comment on above: Performed By: #### T SH, LIPID, T7, CMP, DLDL, URIC #### [facility] [address] [place] [address] Dr. Lauryn Chapman Protein [Mass/Vol] 7.8 g/dL Normal 6.4-8.2 [facility] Comment on above: Performed By: #### T SH, LIPID, T7, CMP, DLDL, URIC #### [facility] [address] [place] [address] Dr. Lauryn Chapman Sodium [Moles/Vol] 136 mmol/L Normal 136-145 [facility] Comment on above: Performed By: #### T SH, LIPID, T7, CMP, DLDL, URIC #### [facility] [address] [place] [address] Dr. Lauryn Chapman Urea nitrogen [Mass/Vol] 20.0 mg/dL Critically high 7.0-18.0 [facility] Comment on above: Performed By: #### T SH, LIPID, T7, CMP, DLDL, URIC #### [facility] [address] [place] [address] Dr. Lauryn Chapman Urea nitrogen/Creatinine [Mass ratio] 18.9 mg/mg Normal [facility] Comment on above: Performed By: #### T SH, LIPID, T7, CMP, DLDL, URIC #### [facility] [address] [place] [address] Dr. Lauryn Chapman TSHon 02-12-2023 TSH 6.440 uIU/mL Critically high 0.358-3.740 [facility] Comment on above: Performed By: #### O BSCRN #### [facility] [address] [place] [address] Dr. Lauryn Chapman URIC ACID SERUMon 02-12-2023 Urate [Mass/Vol] 9.6 mg/dL Critically high 3.5-7.2 [facility] Comment on above: Performed By: #### T SH, LIPID, T7, CMP, DLDL, URIC #### [facility] [address] [place] [address] Dr. Lauryn Chapman PROF CHEM 8 (BAS METB)on Anion gap [Moles/Vol] 16.1 mmol/L Normal [facility] Comment on above: Performed By: #### O BSCRN #### [facility] [address] [place] [address] Dr. Lauryn Chapman Calcium [Mass/Vol] 8.8 mg/dL Normal 8.5-10.1 [facility] Comment on above: Performed By: #### O BSCRN #### [facility] [address] [address] [address] Lauryn Chapman Chloride [Moles/Vol] 104 mmol/L Normal 98-107 [facility] Comment on above: Performed By: #### O BSCRN #### [facility] [address] [address] [address] Lauryn Chapman CO2 [Moles/Vol] 22.4 mmol/L Normal 21.0-32.0 [facility] Comment on above: Performed By: #### O BSCRN #### [facility] [address] [address] [address] Lauryn Chapman Creatinine [Mass/Vol] 0.79 mg/dL Normal 0.70-1.30 [facility] Comment on above: Performed By: #### O BSCRN #### [facility] [address] [address] [address] Lauryn Chapman EGFR-AF NEPALESE >60 Normal >=60 [facility] Comment on above: Performed By: #### O BSCRN #### [facility] [address] [address] [address] Lauryn Chapman EGFR-NON AF NEPALESE >60 Normal >=60 [facility] Comment on above: Performed By: #### O BSCRN #### [facility] [address] [address] [address] Lauryn Chapman Glucose [Mass/Vol] 169 mg/dL Critically high 74-106 [facility] Comment on above: Performed By: #### O BSCRN #### [facility] [address] [address] [address] Lauryn Chapman Potassium [Moles/Vol] 4.5 mmol/L Normal 3.5-5.1 [facility] Comment on above: Performed By: #### O BSCRN #### [facility] [address] [address] [address] Lauryn Chapman Sodium [Moles/Vol] 138 mmol/L Normal 136-145 [facility] Comment on above: Performed By: #### O BSCRN #### [facility] [address] [address] [address] Lauryn Chapman Urea nitrogen [Mass/Vol] 12.0 mg/dL Normal 7.0-18.0 [facility] Comment on above: Performed By: #### O BSCRN #### [facility] [address] [address] [address] Lauryn Chapman Urea nitrogen/Creatinine [Mass ratio] 15.2 mg/mg Normal [facility] Comment on above: Performed By: #### O BSCRN #### [facility] [address] [place] [address] Dr. Lauryn Chapman PROF CHEM 8 (BAS METB)on Anion gap [Moles/Vol] 19.7 mmol/L Normal [facility] Comment on above: Performed By: #### O BSCRN #### [facility] [address] [place] [address] Dr. Lauryn Chapman Calcium [Mass/Vol] 8.8 mg/dL Normal 8.5-10.1 [facility] Comment on above: Performed By: #### O BSCRN #### [facility] [address] [place] [address] Dr. Lauryn Chapman Chloride [Moles/Vol] 103 mmol/L Normal 98-107 [facility] Comment on above: Performed By: #### O BSCRN #### [facility] [address] [place] [address] Dr. Lauryn Chapman CO2 [Moles/Vol] 20.1 mmol/L Critically low 21.0-32.0 [facility] Comment on above: Performed By: #### O BSCRN #### [facility] [address] [place] [address] Dr. Lauryn Chapman Creatinine [Mass/Vol] 0.87 mg/dL Normal 0.70-1.30 [facility] Comment on above: Performed By: #### O BSCRN #### [facility] [address] [place] [address] Dr. Lauryn Chapman EGFR-AF NEPALESE >60 Normal >=60 [facility] Comment on above: Performed By: #### O BSCRN #### [facility] [address] [place] [address] Dr. Lauryn Chapman EGFR-NON AF NEPALESE >60 Normal >=60 [facility] Comment on above: Performed By: #### O BSCRN #### [facility] [address] [address] [address] Lauryn Chapman Glucose [Mass/Vol] 170 mg/dL Critically high 74-106 [facility] Comment on above: Performed By: #### O BSCRN #### [facility] [address] [address] [address] Lauryn Chapman Potassium [Moles/Vol] 4.8 mmol/L Normal 3.5-5.1 [facility] Comment on above: Performed By: #### O BSCRN #### [facility] [address] [address] [address] Lauryn Chapman Sodium [Moles/Vol] 138 mmol/L Normal 136-145 [facility] Comment on above: Performed By: #### O BSCRN #### [facility] [address] [place] [address] Dr. Lauryn Chapman Urea nitrogen [Mass/Vol] 15.0 mg/dL Normal 7.0-18.0 [facility] Comment on above: Performed By: #### O BSCRN #### [facility] [address] [place] [address] Dr. Lauryn Chapman Urea nitrogen/Creatinine [Mass ratio] 17.2 mg/mg Normal [facility] Comment on above: Performed By: #### O BSCRN #### [facility] [address] [address] [address] Lauryn Chapman LIPID PROFILEon 08-28-2022 CHOL-HDL RATIO NORM SEE BELOW Normal [facility] Comment on above: Result Comment: 3.3 - 4.4 LOW RISK 4.4 - 7.1 AVERAGE RISK 7.1 - 11.0 MODERATE RISK >11.0 HIGH RISK Performed By: #### L IVER, LIPID #### [facility] [address] [address] [address] Lauryn Chapman Cholesterol [Mass/Vol] 106 mg/dL Normal <=200 [facility] Comment on above: Performed By: #### L IVER, LIPID #### [facility] [address] [address] [address] Lauryn Chapman Cholesterol in HDL [Mass/Vol] 33 mg/dL Critically low 40-60 [facility] Comment on above: Performed By: #### L IVER, LIPID #### [facility] [address] [address] [address] Lauryn Chapman Cholesterol in LDL [Mass/Vol] 30.2 mg/dL Normal [facility] Comment on above: Performed By: #### L IVLETTY, LIPID #### [facility] [address] [address] [address] Lauryn Chapman Cholesterol.total/Ch olesterol in HDL [Mass ratio] 3.2 {ratio} Normal [facility] Comment on above: Performed By: #### L IVER, LIPID #### [facility] [address] [address] [address] Lauryn Chapman HDL NORMAL > or = 60 mg/dl - LOW CARDIOVASCULAR RISK <40 mg/dl - HIGH CARDIOVASCULAR RISK Normal [facility] Comment on above: Performed By: #### L IVLETTY, LIPID #### [facility] [address] [address] [address] Lauryn Chapman LDL CALC NORMAL SEE BELOW Normal [facility] Comment on above: Result Comment: <100 mg/dl OPTIMAL 100 - 129 mg/dl NEAR OR ABOVE OPTIMAL 130 - 159 mg/dl BORDERLINE HIGH 160 - 189 mg/dl HIGH >190 mg/dl VERY HIGH Performed By: #### L IVLETTY, LIPID #### [facility] [address] [address] [address] Lauryn Chapman Triglyceride [Mass/Vol] 214 mg/dL Critically high <=150 [facility] Comment on above: Performed By: #### L IVER, LIPID #### [facility] [address] [address] [address] Lauryn Chapman VLDL CALC 42.8 mg/dL Normal [facility] Comment on above: Performed By: #### L IVER, LIPID #### [facility] [address] [place] [address] Dr. Lauryn Chapman LIVER PROFILEon 08-28-2022 Albumin [Mass/Vol] 3.6 g/dL Normal 3.4-5.0 [facility] Comment on above: Performed By: #### L IVER, LIPID #### [facility] [address] [place] [address] Dr. Lauryn Chapman Albumin/Globulin [Mass ratio] 1.1 {ratio} Normal [facility] Comment on above: Performed By: #### L IVLETTY, LIPID #### [facility] [address] [place] [address] Dr. Lauryn Chapman ALP [Catalytic activity/Vol] 73 U/L Normal 46-116 [facility] Comment on above: Performed By: #### L IVER, LIPID #### [facility] [address] [place] [address] Dr. Lauryn Chapman ALT [Catalytic activity/Vol] 48 U/L Normal 16-63 [facility] Comment on above: Performed By: #### L IVLETTY, LIPID #### [facility] [address] [place] [address] Dr. Lauryn Chapman AST [Catalytic activity/Vol] 24 U/L Normal 15-37 [facility] Comment on above: Performed By: #### L IVER, LIPID #### [facility] [address] [place] [address] Dr. Lauryn Chapman BILI, CONJUGATED 0.1 mg/dL Normal 0.0-0.2 [facility] Comment on above: Performed By: #### L IVER, LIPID #### [facility] [address] [place] [address] Dr. Lauryn Chapman Bilirubin [Mass/Vol] 0.5 mg/dL Normal 0.2-1.0 [facility] Comment on above: Performed By: #### L IVER, LIPID #### [facility] [address] [place] [address] Dr. Lauryn Chapman Globulin (S) [Mass/Vol] 3.4 g/dL Normal [facility] Comment on above: Performed By: #### L FELICIA, LIPID #### [facility] [address] [address] [address] Lauryn Chapman Protein [Mass/Vol] 7.0 g/dL Normal 6.4-8.2 [facility] Comment on above: Performed By: #### L FELICIA, LIPID #### [facility] [address] [address] [address] Lauryn Chapman BASIC METABOLIC PANELon 03- Calcium [Mass/Vol] 8.3 mg/dL Low 8.6-10.3 [facility] Comment on above: Order Comment: No: D o not add to previous draw Performed By: #### 0 [id number] #### [facility] [address] [facility] [place] [address], [facility] Chloride [Moles/Vol] 109 mmol/L High 98-107 [facility] Comment on above: Order Comment: No: D o not add to previous draw Performed By: #### 0 [id number] #### [facility] [address] [place] [address], [facility] CO2 [Moles/Vol] 20 mmol/L Low 21-31 [facility] Comment on above: Order Comment: No: D o not add to previous draw Performed By: #### 0 [id number] #### [facility] [address] [place] [id number], [facility] Creatinine [Mass/Vol] 0.76 mg/dL Normal 0.70-1.30 [facility] Comment on above: Order Comment: No: D o not add to previous draw Performed By: #### 0 [id number] #### [facility] [address] [place] [address], [place] GFR/1.73 sq M.predicted among blacks MDRD (S/P/Bld) [Vol rate/Area] mL/min/{1.73_m2} Normal >60 [facility] Comment on above: Order Comment: No: D o not add to previous draw Performed By: #### 0 [id number] #### [facility] [address] [place] [address], [place] GFR/1.73 sq M.predicted among non-blacks MDRD (S/P/Bld) [Vol rate/Area] mL/min/{1.73_m2} Normal >60 [facility] Comment on above: Order Comment: No: D o not add to previous draw Performed By: #### 0 [id number] #### [facility] [address] [place] [address], [place] Glucose [Mass/Vol] 146 mg/dL High 70-100 [facility] Comment on above: Order Comment: No: D o not add to previous draw Performed By: #### 0 [id number] #### [facility] [address] [place] [address], [place] Potassium [Moles/Vol] 4.0 mmol/L Normal 3.5-5.1 [facility] Comment on above: Order Comment: No: D o not add to previous draw Performed By: #### 0 [id number] #### [facility] [address] [place] [address], [place] Sodium [Moles/Vol] 136 mmol/L Normal 136-145 [facility] Comment on above: Order Comment: No: D o not add to previous draw Performed By: #### 0 [id number] #### [facility] [address] [place] [address], [place] Urea nitrogen [Mass/Vol] 12 mg/dL Normal 7-25 [facility] Comment on above: Order Comment: No: D o not add to previous draw Performed By: #### 0 [id number] #### [facility] [address] [place] [address], [place] CBC COMPLETE BLOOD COUNTon 0 - Erythrocyte distribution width (RBC) [Ratio] 16.8 % High 11.5-15.0 [facility] Comment on above: Order Comment: No: D o not add to previous draw Performed By: #### [id number] #### [facility] [address] [place] [address], [facility] Hematocrit (Bld) [Volume fraction] 42.4 % Normal 39.0-50.0 [facility] Comment on above: Order Comment: No: D o not add to previous draw Performed By: #### [id number] #### [facility] [address] [place] [id number], [facility] Hemoglobin (Bld) [Mass/Vol] 13.6 g/dL Normal 13.0-17.0 [facility] Comment on above: Order Comment: No: D o not add to previous draw Performed By: #### [id number] #### [facility] [address] [place] [address], [facility] MCH (RBC) [Entitic mass] 23.8 pg Low 27.0-33.0 [facility] Comment on above: Order Comment: No: D o not add to previous draw Performed By: #### [id number] #### [facility] [address] [place] [address], [facility] MCHC (RBC) [Mass/Vol] 32.1 g/dL Normal 32.0-35.0 [facility] Comment on above: Order Comment: No: D o not add to previous draw Performed By: #### [id number] #### [facility] [address] [place] [id number], [facility] MCV (RBC) [Entitic vol] 74.3 fL Low 82.0-98.0 [facility] Comment on above: Order Comment: No: D o not add to previous draw Performed By: #### [id number] #### [facility] [address] [place] [address], [facility] Nucleated RBC/100 WBC (Bld) [Ratio] 0 % Normal 0-0 [facility] Comment on above: Order Comment: No: D o not add to previous draw Performed By: #### [id number] #### [facility] [address] [place] [address], [facility] PLAT CNT 186 10*3/uL Normal 150-400 [facility] Comment on above: Order Comment: No: D o not add to previous draw Performed By: #### [id number] #### [facility] [address] [place] [address], [facility] RBC (Bld) [#/Vol] 5.71 10*6/uL High 4.20-5.70 [facility] Comment on above: Order Comment: No: D o not add to previous draw Performed By: #### [id number] #### [facility] [address] [place] [address], [facility] WBC (Bld) [#/Vol] 6.12 10*3/uL Normal 4.00-10.60 [facility] Comment on above: Order Comment: No: D o not add to previous draw Performed By: #### [id number] #### [facility] [address] Cardiovascular Lab Reporton 12-26-2021 Cardiovascular Lab Report [facility] Patient Name: Juan Luis Tiffanie [facility] MR #: [id number] Physician: Akosua Saucedo, Department of M.D. Medicine Service Date: 12/26/2021 Division of Birthdate: 1960 Cardiology Room #: Adult Cardiovascular Services [place] [address] Cardiovascular Laboratory Report FINAL IMPRESSIONS: 1. Severe [...] the left radial artery was obtained. A 6-Swedish glide sheath was inserted without difficulty. Bilateral selective coronary angiography was performed using JL4 and JR4 catheters. After reviewing the images, it was elected to proceed with the physiological assessment of the left anterior descending. A 6-Swedish XB3.5 guide catheter was advanced over a [...] No (more content not included)... Normal [facility] Vital Signs Date Time Vital Sign Value Performing Clinician Facility 04-18-2025 08:07-0400 Body height 182.88 cm Raya Dye MD Work Phone: [facility] 04-18-2025 08:07-0400 Body mass index (BMI) [Ratio] 30.9 kg/m2 Raya Dye MD Work Phone: [facility] 04-18-2025 08:07-0400 Body weight 103.3 kg Raya Dye MD Work Phone: [facility] 04-18-2025 08:07-0400 Diastolic blood pressure 71 mm[Hg] Raya Dye MD Work Phone: [facility] 04-18-2025 08:07-0400 Heart rate 65 /min Raya Dye MD Work Phone: [facility] 04-18-2025 08:07-0400 Respiratory rate 18 /min Raya Dye MD Work Phone: [facility] 04-18-2025 08:07-0400 SaO2% (BldA) [Mass fraction] 98 % Raya Dye MD Work Phone: [facility] 04-18-2025 08:07-0400 Systolic blood pressure 107 mm[Hg] Raya Dye MD Work Phone: [facility] 12-20-2024 08:40-0500 Body height 182.88 cm [facility] 12-20-2024 08:40-0500 Body mass index (BMI) [Ratio] 34.2 kg/m2 [facility] 12-20-2024 08:40-0500 Body weight 114.3 kg [facility] 12-20-2024 08:40-0500 Diastolic blood pressure 80 mm[Hg] [facility] 12-20-2024 08:40-0500 Heart rate 63 /min [facility] 12-20-2024 08:40-0500 Respiratory rate 18 /min [facility] 12-20-2024 08:40-0500 SaO2% (BldA) [Mass fraction] 98 % [facility] 12-20-2024 08:40-0500 Systolic blood pressure 124 mm[Hg] [facility] 03-17-2024 08:23-0400 Body height 182.88 cm [facility] 03-17-2024 08:23-0400 Body mass index (BMI) [Ratio] 35.4 kg/m2 [facility] 03-17-2024 08:23-0400 Body weight 118.5 kg [facility] 03-17-2024 08:23-0400 Diastolic blood pressure 89 mm[Hg] [facility] 03-17-2024 08:23-0400 Heart rate 67 /min [facility] 03-17-2024 08:23-0400 Respiratory rate 18 /min [facility] 03-17-2024 08:23-0400 SaO2% (BldA) [Mass fraction] 98 % [facility] 03-17-2024 08:23-0400 Systolic blood pressure 131 mm[Hg] [facility] 12-11-2023 10:57-0500 Body height 182.88 cm [facility] 12-11-2023 10:57-0500 Body mass index (BMI) [Ratio] 36 kg/m2 [facility] 12-11-2023 10:57-0500 Body weight 120.4 kg [facility] 12-11-2023 10:57-0500 Diastolic blood pressure 80 mm[Hg] [facility] 12-11-2023 10:57-0500 Heart rate 66 /min [facility] 12-11-2023 10:57-0500 Respiratory rate 18 /min [facility] 12-11-2023 10:57-0500 SaO2% (BldA) [Mass fraction] 98 % [facility] 12-11-2023 10:57-0500 Systolic blood pressure 132 mm[Hg] [facility] 09-02-2023 10:15-0500 Body height 182.88 cm Belkis Scally Other [facility] [employer] Other 09-02-2023 10:15-0500 Body mass index (BMI) [Ratio] 37.85 kg/m2 Belkis Scally Other [facility] [employer] Other 09-02-2023 10:15-0500 Body weight 126.6 kg Belkis Scally Other [employer] Other 09-02-2023 10:15-0500 Diastolic blood pressure 79 mm[Hg] Belkis Scally Other [employer] Other 09-02-2023 10:15-0500 Respiratory rate 18 /min Belkis Scally Other [employer] Other 09-02-2023 10:15-0500 SaO2% (BldA) [Mass fraction] 97 % Belkis Scally Other [employer] Other 09-02-2023 10:15-0500 Systolic blood pressure 131 mm[Hg] Belkis Scally Other [employer] Other 07-23-2023 08:45-0400 Body height 182.88 cm Belkis Scally Other [employer] Other 07-23-2023 08:45-0400 Body mass index (BMI) [Ratio] 37.85 kg/m2 Belkis Scally Other [employer] Other 07-23-2023 08:45-0400 Body weight 126.6 kg Belkis Scally Other [employer] Other 07-23-2023 08:45-0400 Diastolic blood pressure 88 mm[Hg] Belkis Scally Other [employer] Other 07-23-2023 08:45-0400 Respiratory rate 18 /min Belkis Scally Other [employer] Other 07-23-2023 08:45-0400 SaO2% (BldA) [Mass fraction] 98 % Belkis Scally Other [employer] Other 07-23-2023 08:45-0400 Systolic blood pressure 137 mm[Hg] Belkis Scally Other [employer] Other Encounters Encounter Date Encounter Type Care Provider Facility Start: 04-18-2025 End: 04-18-2025 ambulatory Raya Dye MD Work Phone: [facility] Work Phone: Start: 04-18-2025 End: 04-18-2025 Patient encounter procedure Belkis Rosas [facility] Work Phone: Start: 12-20-2024 End: 12-20-2024 ambulatory [facility] Work Phone: Start: 12-20-2024 End: 12-20-2024 Patient encounter procedure [facility] Work Phone: Start: 11-15-2024 End: 11-15-2024 ambulatory [facility] Start: 03-17-2024 End: 03-17-2024 ambulatory [facility] Work Phone: Start: 03-17-2024 End: 03-17-2024 Patient encounter procedure [facility] Work Phone: Start: 12-11-2023 End: 12-11-2023 ambulatory [facility] Work Phone: Start: 12-11-2023 End: 12-11-2023 Patient encounter procedure [facility] Work Phone: Start: 09-02-2023 (DM) Diabetes Belkis Garcia [facility] Start: 09-02-2023 End: 09-03-2023 ambulatory Raya Dye [facility] [employer] Other Start: 07-24-2023 End: 07-24-2023 ambulatory Belkis Rosas Other [employer] Other Start: 07-24-2023 Telephone encounter Belkis ron [facility] Start: 07-23-2023 (DM) Diabetes Belkis Garcia ds [facility] Start: 07-23-2023 End: 07-23-2023 ambulatory Belkis Rosas Other [employer] Other Start: 06-03-2023 End: 06-03-2023 ambulatory Belkis Rosas Other [employer] Other Start: 06-03-2023 Telephone encounter Belkis polk [facility] Start: 02-21-2023 Encounter for genera l adult medical examination without abnormal findings DR RAYA DYE . [facility] Start: 02-18-2023 End: 02-18-[address] RAYA DYE . Facility: Start: 02-18-2023 End: 02-18-2023 Encounter for general adult medical examination without abnormal findings DR RAYA DYE . Facility:[facility] Start: 02-12-2023 End: 02-13-[address] RAYA DYE . Facility:[facility] Start: 11-20-2022 End: 11-21-2022 ambulatory RAKESH GAO Facility:[facility] Start: 10-16-2022 End: 10-17-2022 ambulatory RAKESH GAO Facility:[facility] Start: 08-28-2022 End: 08-29-[address] AKOSUA SAUCEDO Facility:[facility] Start: 03-20-[address] AKOSUA SAUCEDO Facili ty:[facility] Start: 12-26-2021 End: 12-27-2021 ambulatory AKOSUA SAUCEDO Facility:[facility] Procedures Date Procedure Procedure Detail Performing Clinician Start: 02-12-2023 PSA screening DR AKOSUA DELUCA Comment on above: Performed By: #### [facility] #### [facility] [address] [place] [address] Dr. Lauryn Chapman Plan of Treatment Date Care Activity Detail Author Comprehensive metabo lic 1999 panel - Serum or Plasma [facility] enter Comprehensive metabo lic 2000 panel - Serum or Plasma [facility] enter Comprehensive metabo lic 2000 panel - Serum or Plasma [facility] enter [facility] Payers Date Payer Category Payer Medicare [id number] 2.1 [id number] 1959 Private Health Insurance [id number] 1959 Private Health Insurance [id number] 1959 Self-pay 1958 Unknown [id number] 2.16.8 [id number] 1958 Unknown [id number] 2.16.84 [id number] 1958 Unknown [id number] 2.16.84 [id number] 1958 Unknown [id number] 2.16.84 [id number] 1958 Unknown [id number] 2.16.84 [id number] 1958 Unknown [id number] 2.16.84 [id number] 1958 Unknown [id number] 2.16.84 [id number] 1958 Unknown [id number] 2.16.84 [id number] Private Health Insurance [id number] Unknown [id number] 2.16.8 [id number] Social History Date Type Detail Facility Sex Assigned At [employer] Other Start: 1960 Sex Assigned At Male F [facility] Start: 12-11-2023 End: 12-11-2023 Tobacco smoking status NHIS Never smoked tobacco (finding) [facility] Start: 12-20-2024 Sex Male (finding) [facility] Medical Equipment Procedure Code Equipment Code Equipment Origin al Text Equipment Identifier Dates Start: 05-28-2023 lancets (Comfort Touch Ult Thin Lancets) Start: 12-10-2023 lancets (Comfort Touch Ult Thin Lancets) Start: 12-10-2023 lancets (Comfort Touch Ult Thin Lancets) Start: 12-10-2023 Blood Sugar Diagnostic (Onetouch Ultra Test) strip Start: 06-28-2024 Blood Sugar Diagnostic (Onetouch Ultra Test) strip Start: 06-28-2024 lancets (Comfort Touch Ult Thin Lancets) Start: 12-10-2023 Lancets (Comfort Touch Ult Thin Lancets) 31 gauge misc Start: 10-04-2024 Blood Sugar Diagnostic (Onetouch Ultra Test) strip Start: 06-28-2024 End: 06-28-2024 Lancets (Comfort Touch Ult Thin Lancets) 31 gauge misc Start: 10-04-2024 End: 10-04-2024 Lancets misc Start: 10-04-2024 End: 10-04-2024 Blood Sugar Diagnostic (Onetouch Ultra Test) strip Start: 06-28-2024 Blood Sugar Diagnostic (Onetouch Ultra Test) strip Start: 12-20-2024 Blood Sugar Diagnostic (Onetouch Ultra Test) strip Start: 12-20-2024 Lancets (Comfort Touch Ult Thin Lancets) 31 gauge misc Start: 10-04-2024 Lancets misc Start: 04-18-2025 Blood Sugar Diagnostic (Onetouch Ultra Test) strip Start: 06-28-2024 End: 06-28-2024 Blood Sugar Diagnostic (Onetouch Ultra Test) strip Start: 06-28-2024 End: 12-20-2024 lancets (Comfort Touch Ult Thin Lancets) Start: 12-10-2023 End: 12-20-2024 Lancets (Comfort Touch Ult Thin Lancets) 31 gauge misc Start: 10-04-2024 End: 10-04-2024 Lancets misc Start: 10-04-2024 End: 10-04-2024 Lancets misc Start: 12-22-2024 End: 04-18-2025 Lancets misc Start: 12-20-2024 End: 12-20-2024 [facility] Start: 12-20-2024 End: 12-22-2024 Clinical Notes 06-03-2023 to 11-15-2024 Note Date & Type Note Facility 11-15-2024 Note [facility] Cardiology Clinic Note Chief Complaint: Patient here for 1 year follow up CAD, hypertension, and dyslipidemia. Had routine labs with lipid panels in April and Aug 2024. He is no longer taking atorvastatin, as he is now taking simvastatin. He isn't sure why, but thinks his PCP and corrugated fastener driver changed this. Patient remains very active and goes to the gym 4 days a week. Denies chest pain, SOB, and palpitations. Says his BP was 132/83 this morning before the gym. HPI: Tiffanie Mcknight is a 64 y.o. male He continues to lose weight and is now seeing an corrugated fastener driver. He started him on Jardiance. Still goes to the gym 4-5 days a week. Denies chest pain, SOB, lightheadedness, and palpitations. No blood work or testing since last visit in March 2023. Doing well; no new symptoms UPDATE 11/15/2024 Doing okay; no significant symptoms. Cardiology ROS: Review of Systems Constitutional: Positive for weight loss (18# since Oct 2023). All other systems reviewed and are [...] Rfl: 3 carvedilol (Coreg) 25 mg tablet, TAKE 1 TABLET BY MOUTH WITH BREAKFAST AND EVENING MEAL, Disp: 180 tablet, Rfl: 3 chlorthalidone (Hygroton) 25 mg tablet, Take 1 tablet (25 mg) by mouth in the morning., Disp: 90 tablet, Rfl: 3 icosapent ethyL (Vascepa) 1 gram capsule, Take 2 capsules (2 g) by mouth with breakfast and with evening meal., Disp: 360 capsule, Rfl: 3 Jardiance 25 mg, 25 mg 1 (one) time each day., Disp: , Rfl: levothyroxine (Synthroid, Levoxyl) 25 mcg tablet, Take 1 tablet by mouth in the morning., Disp: , Rfl: losartan (Cozaar) 50 mg tablet, Take 1 tablet (50 mg) by mouth in the morning., Disp: 90 tablet, Rfl: 3 metFORMIN (Glucophage) 500 mg tablet, Take 1 tablet by mouth in the morning and at bedtime., Disp: , Rfl: Last Recorded Vitals BP 140/88 (BP Location: Left arm, Patient Position: Sitting) Pulse 73 Ht 1.88 m (6' 2 ) Wt 117 kg (258 lb) SpO2 97% BMI 33.13 kg/m??? Physical Examination: GENERAL: alert and oriented [...] extremities. PSYCH: appropriate mood, affect, and judgement. INVESTIGATIONS: Lipid profile 04/26/2024: Triglycerides 311, cholesterol 168, LDL 67, HDL 39 HbA1c 6.5 Labs 09/15/2024: Cholesterol 164, triglycerides 410, LDL 79, HDL 38 Echocardiogram 10/2023: Conclusion: Global left ventricular systolic function is normal; visually estimated ejection fraction is 60 to 65% Normal right ventricular size and systolic function Normal diastolic function No significant valvular abnormalities Cardiovascular laboratory report 12/26/2021: Final impressions: 1. Severe stenosis of the ostial left circumflex successfully treated by balloon angioplasty and Synergy drug-eluting stent placement 2. Moderate, proximal disease of the left anterior descending, nonhemodynamically significant as assessed by instantaneous wave free ratio 3. Moderate disease of the right coronary artery 4. Mildly reduced global left ventricular systolic function with segmental wall motion abnormalities by noninvasive imaging Assessment: Coronary artery disease s/p ostial left circumflex stent Moderate, nonsignificant disease of the left anterior descending coronary artery Essential hypertension - controlled Dyslipidemia Severe hypertriglyceridemia Diabetes mellitus Plan: Continue optimal medical therapy for coronary artery disease including aspirin, (more content not included)... [facility] 09-02-2023 Evaluation note Encounter Date Diagnosis Assessment [...] diabetes medication issues. 6. Prescriptions: Patient uses [employer] Aug, Hyperlipidemia, unspecified hyperlipidemia type (ICD-10 - [...] has had non sustainable success in past Aug, BMI 37.0-37.9, adult (ICD-10 - Z68.37) Aug, Hypertriglyceridem ia (ICD-10 - E78.1) managed by cardiology, rx grad icose[employer] cost prohibitive historically. UTD for patient hypertriglyceride provided and reviewed. [employer] Other 10-04-2023 Evaluation note* Encounter Date Diagnosis [...] diabetes medication issues. 6. Prescriptions: Patient uses [employer] Jul, Hyperlipidemia, unspecified hyperlipidemia type (ICD-10 - [...] Jul, BMI 37.0-37.9, adult (ICD-10 - Z68.37) [employer] Other 08-15-2023 Evaluation note* Encounter Date Diagnosis Assessment Notes Treatment Notes Treatment Clinical Notes May, Type 2 diabetes mellitus with hyperglycemia, without long-term current use of insulin (ICD-10 - E11.65) [employer] Other Chief complaint+Reason for visit Narrative* Chief Complaint DMN f/u-METER Reason for Visit BMI 37.0-37.9, adult Dietary counseling and surveillance Hyperlipemia Hypertension Hypertriglyceridemia Hypothyroidism Type 2 diabetes mellitus Type 2 diabetes mellitus with hyperglycemia Vitamin D deficiency [facility] Work Phone: Evaluation noteNo InformationN[facility] [employer] Other Evaluation noteNo assessment information available [facility] Work Phone: Evaluation note* Diagnosis Onset Date Resolution Status Type 2 diabetes mellitus acu te [facility] Work Phone: Evaluation note* Diagnosis Onset Date Resolution Status BMI 37.0-37.9, adult acute Dietary counseling and surveillance acute Hyperlipemia acute Hypertension acute Hypertriglyceridemia acute Hypothyroidism acute Type 2 diabetes mellitus acu te Type 2 diabetes mellitus with hyperglycemia acute Vitamin D deficiency acute [facility] Work Phone: Evaluation note* Diagnosis Onset Date Resolution Status Admit Date BMI 37.0-37.9, adult acute Nathanael h 2024 8:21am Dietary counseling and surveillance acute December 20, 2024 8:21am Hyperlipemia acute December 20 025 8:21am Hypertension acute December 20 025 8:21am Hypertriglyceridemia acute Nathanael h 2024 8:21am Hypothyroidism acute December 20, 2024 8:21am Type 2 diabetes mellitus acute December 20, 2024 8:21am Type 2 diabetes mellitus wit h hyperglycemia acute December 20, 2024 8:21am Vitamin D deficiency acute Nathanael h 2024 8:21am [facility] Work Phone: Evaluation note* Diagnosis Onset Date Resolution Status Admit Date BMI 37.0-37.9, adult acute April 18, 2025 8:05am Dietary counseling and surveillance acute April 18, 2025 8:05am Hyperlipemia acute April 18, 025 8:05am Hypertension acute April 18 8:05am Hypertriglyceridemia acute April 18, 2025 8:05am Hypothyroidism acute April 18, 2025 8:05am Type 2 diabetes mellitus acute April 18, 2025 8:05am Type 2 diabetes mellitus wit h hyperglycemia acute April 18, 2025 8:05am Vitamin D deficiency acute April 18, 2025 8:05am [facility] Work Phone: History general Narrative - Reported* Type Description Date Medical History Hypothyroidism Medical History high blood pressure Medical History high triglycerides Surgical History tonsillectomy 1966 Surgical History exploratory lap 2020 Surgical History cardiac stent 2020 Hospitalization History Abd/ chest pain 2020 [facility] [employer] Other [employer] for referral (narrative)No reason for referral information [facility] Work Phone: Reason for visit NarrativeDM, DISCUSS YEARLY DIABETIC EYE EXAMS, UMIC TODAY, NEEDS FOOT CHECK, Self Referral Type [facility] [employer] Other Reynws for visit NarrativeDM, DISCUSS YEARLY DIABETIC EYE EXAMS, Self Referral Type [facility] [employer] Other Summary Purpose Family History Relationship Condition [...] Unknown Unknown Not Specified Heart disease Unknown Relationship Condition Age at Onset Recorded Date/T solo brother Heart disease Unknown Hypertension Unknown Diabetes mellitus Unknown father Diabetes mellitus Unknown Heart disease Unknown Unknown mother Heart disease Unknown Advance Directives Advance Directive Response Recorded Date/ Time Advance Directives No May 29, 2023 7:56am Advance Directive Response Recorded Date/ Time Advance Directives No May 29, 2023 8:56am Chief Complaint and Reason for Visit Chief Complaint meter Reason for Visit Type 2 diabetes luis manuel itus Chief Complaint Admit Date 3 month-DMN f/u / meter December 20, 2024 8:21am Reason for Visit Admit Date BMI 37.0-37.9, adult December 20, 2024 8:2 1am Dietary counseling and surveillance Nathanael 2024 8:21am Hyperlipemia December 20, 2024 8:21 am Hypertension December 20, 2024 8:21 am Hypertriglyceridemia December 20, 2024 8:2 1am Hypothyroidism December 20, 2024 8:21 am Type 2 diabetes mellitus December 20, 2024 8:21am Type 2 diabetes mellitus with hyperglyce claudette December 20, 2024 8:21am Vitamin D deficiency December 20, 2024 8:2 1am Chief Complaint Admit Date 3 month-DMN f/u April 18, 2025 8:05 am Reason for Visit Admit Date BMI 37.0-37.9, adult April 18, 2025 8:0 5am Dietary counseling and surveillance April 18, 2025 8:05am Hyperlipemia April 18, 2025 8:05 am Hypertension April 18, 2025 8:05 am Hypertriglyceridemia April 18, 2025 8:0 5am Hypothyroidism April 18, 2025 8:05 am Type 2 diabetes mellitus April 18, 2025 8:05am Type 2 diabetes mellitus with hyperglyce claudette April 18, 2025 8:05am Vitamin D deficiency April 18, 2025 8:0 5am Additional Source Comments (unrecognized sect ion and content) No Status Records FoundNo Status Records FoundNo Status Records FoundNo Status Records FoundNo Status Records Found INFORMATION SOURCE (unrecogn ized section and content) DATE CREATED AUTHOR 01/01/2022 [facility] DATE CREATED AUTHOR AUTHOR'S ORGANIZ ATION 03/01/2023 [facility] DATE CREATED AUTHOR AUTHOR'S ORGANIZ ATION 12/18/2023 [facility] DATE CREATED AUTHOR AUTHOR'S ORGANIZ ATION 03/16/2024 [facility] DATE CREATED AUTHOR AUTHOR'S ORGANIZ ATION 11/16/2024 [facility] REASON FOR VISIT (unrecogniz ed section and content) Erx clarification for test s tripsLab result Goals (unrecognized section and content) Goals may be documented in a n alternate section Care Teams (unrecognized sec tion and content) Team Status: Active Member Role Status Briana Dye MD Primary Care Provider Active Team Status: Inactive Member Role Status Briana Dye MD Primary Care Provider Active Start: December 11, 2023 End: December 11, 2023 Belkis Rosas APRN Attending Provider Active Start: December 11, 2023 End: December 11, 2023 Team Status: Inactive Member Role Status Briana Dye MD Primary Care Provider Active Start: March 17, 2024 End: March 17, 2024 Belkis Rosas APRN Attending Provider Active Start: March 17, 2024 End: March 17, 2024 Team Status: Inactive Member Role Status Briana Dye MD Primary Care Provider Active Start: December 20, 2024 End: December 20, 2024 Belkis Rosas APRN Attending Provider Active Start: December 20, 2024 End: December 20, 2024 Team Status: Inactive Member Role Status Briana Dye MD Primary Care Provider Active Start: April 18, 2025 End: April 18, 2025 Belkis Rosas APRN Attending Provider Active Start: April 18, 2025 End: April 18, 2025 FOR RECORDS PERTAINING TO PATIENTS WHO ARE [...] BE BASED ON THE PRIMARY CLINICAL RECORDS. [employer] provides no warranty or guarantee of the accuracy or completeness of information in this document.
[2025-05-16 11:50] LABS: Hematocrit 49.0 % (42.0-54.0); Hemoglobin 16.2 g/dL (14.0-18.0); Immature Granulocytes Abs Auto 0.02 10^3/uL (0.00-0.03); Immature Granulocytes Pct Auto 0.2 % (0.0-0.5); Lymphocytes Absolute Auto 2.2 10^3/uL (1.2-3.8); Mean Corpuscular HGB Conc 33.1 g/dL (29.9-35.2); Mean Corpuscular Hemoglobin 25.3 pg (25.9-34.0); Mean Corpuscular Volume 76.6 fL (80.0-94.0); Platelet Count 169 10^3/uL (150-450); Red Blood Count 6.40 10^6/uL (4.70-6.10); White Blood Count 8.1 10^3/uL (4.0-11.0)
[2025-05-16 12:33] LABS: Alanine Aminotransferase 31 U/L (16-63); Albumin Globulin Ratio 1.2; Albumin Level 4.0 g/dL (3.4-5.0); Alkaline Phosphatase 56 U/L (46-116); Anion Gap 15.4; Aspartate Amino Transferase 20 U/L (15-37); Blood Urea Nitrogen 17.0 mg/dL (7.0-18.0); Calcium 9.2 mg/dL (8.5-10.1); Carbon Dioxide 26.4 mmol/L (21.0-32.0); Chloride 103 mmol/L (98-107); Cholesterol 104 mg/dL (<=200); Estimated GFR (African America >60 (>=60 mL/min/1.73m^2); Estimated GFR (Non-African Ame >60 (>=60 mL/min/1.73m^2); Free T3 3.17 pg/mL (2.18-3.98); Globulin 3.4 g/dL; Glucose 100 mg/dL (74-106); HDL Cholesterol 36 mg/dL (40-60); Potassium 3.8 mmol/L (3.5-5.1); Sodium 141 mmol/L (136-145); Thyroid Stimulating Hormone 2.857 uIU/mL (0.358-3.740); Total Protein 7.4 g/dL (6.4-8.2); Triglycerides 141 mg/dL (<=150); Uric Acid 6.3 mg/dL (3.5-7.2); VLDL CHOLESTEROL 28.2 mg/dL
== END 2025-05-16 11:30 | disposition home or self-care (01) ==
PROVIDERS: PCP Family Medicine; Visit Provider Family Medicine
DX: E78.5 Hyperlipidemia, unspecified (principal); I10 Essential (primary) hypertension; E03.9 Hypothyroidism, unspecified; N52.9 Male erectile dysfunction, unspecified; E11.9 Type 2 diabetes mellitus without complications; Z12.12 Encounter for screening for malignant neoplasm of rectum; R53.83 Other fatigue; Z12.5 Encounter for screening for malignant neoplasm of prostate
CPT/HCPCS: 36415; 80053; 80061; 83036; 84436; 84443; 84481; 84550; G0103

== ENCOUNTER 2025-05-17 10:49 | Outpatient (REF) | payer MEDICARE, OTHER, SELFPAY ==
--- OUTSIDE RECORDS SUMMARY | 2025-05-17 10:52 | XMS_ITS | Clinical Summary ---
Author Organization [facility] Address [address] [place] [address] Care Team Providers Care Night Court Magistrate Name Role Phone Jean Carlos Dye MD Primary Care Provider [phone] Allergies No known active allergies Medications aspirin 81 mg chewable tablet Chew 1 tablet every day by oral route. Active levothyroxine (Synthroid, Levoxyl) 25 mcg tablet Take 1 tablet by mouth in the morning. Active metFORMIN (Glucophage) 500 mg tablet Take 1 tablet by mouth in the morning and at bedtime. Active atorvastatin (Lipitor) 80 mg tabletIndicatio ns:Coronary artery disease due to lipid rich plaque Take 1 tablet (80 mg) by mouth in the morning. 90 tablet 3 12/05/19 23 Active icosapent ethyL (Vascepa) 1 gram capsuleIndicati ons:Coronary artery disease due to lipid rich plaque Take 2 capsules (2 g) by mouth with breakfast and with evening meal. 360 capsule 3 05/06/20 23 Active Additional Information Patient not taking.Reported on 11/15/2024 Jardiance 25 mg 25 mg 1 (one) time each day. 10/03/20 23 Active ergocalciferol (Vitamin D-2) 50 MCG (1999 [place]) capsule capsule 1 capsule 1 (one) time each day at the same time. 09/21/20 24 Active simvastatin (Zocor) 20 mg tablet 1 (one) time each day at the same time. 09/21/20 24 Active chlorthalidone (Hygroton) 25 mg tabletIndicatio ns:Essential hypertension Take 1 tablet (25 mg) by mouth in the morning. 90 tablet 3 11/29/19 25 026 Active losartan (Cozaar) 50 mg tabletIndicatio ns:Essential hypertension,Co ronary artery disease involving standing rock coronary artery of standing rock heart without angina pectoris TAKE 1 TABLET BY MOUTH EVERY DAY IN THE MORNING 90 tablet 3 05/04/20 25 Active carvedilol (Coreg) 25 mg tabletIndicatio ns:Essential hypertension TAKE 1 TABLET BY MOUTH EVERYDAY WITH BREAKFAST AND EVENING MEAL 180 tablet 3 05/04/20 25 Active carvedilol (Coreg) 25 mg tabletIndicatio ns:Essential hypertension TAKE 1 TABLET BY MOUTH WITH BREAKFAST AND EVENING MEAL 180 tablet 3 05/17/20 24 025 Discontinued losartan (Cozaar) 50 mg tabletIndicatio ns:Essential hypertension,Co ronary artery disease involving standing rock coronary artery of standing rock heart without angina pectoris Take 1 tablet (50 mg) by mouth in the morning. 90 tablet 3 05/17/20 24 025 Discontinued Active Problems Problem Noted Date Diagnosed Date Vitamin D deficiency 11/15/2024 History of renal calculi 11/10/2023 024 Pneumoperitoneum 11/10/2023 11/10/2023 Coronary artery disease invo lving standing rock coronary artery of standing rock heart without angina pectoris 08/28/2022 Overview (11/11/2022): Images from the original note were not included. Assessment & Plan (11/11/2022 12:06 PM EST): Coronary artery disease is stable Continue GDMT- ASA lifelong, d/w pt he may stop plavix December- 1 year post stent, and continue coreg. Call office for any concerns Assessment & Plan (08/28/2022 10:29 AM EST): Continue goal-directed medical therapy Patient exercises 3-4 times a week for at least an hour with cardiovascular/aerobic activity on a treadmill without any limiting symptoms Continue risk factor modifications including heart healthy diet, regular exercise as tolerated and continue all medications Return to clinic in 6 months or earlier if needed Essential hypertension 08/28/2022 Overview (11/11/2022): Images from the original note were not included. Assessment & Plan (11/11/2022 12:05 PM EST): Hypertension is uncontrolled- 147/81 in office PT to take b/p cuff back to pharmacy and have size checked Will increase losaratan to 75 mg daily, repeat bmp in 1 week to assess renal function Continue coreg 25 mg bid- d/w pt to call if brain fog or fatigue affects daily activity Assessment & Plan (10/02/2022 3:33 PM EST): Hypertension is uncontrolled despite increased dose of coreg, therefore will increase losartan to 50 mg daily and repeat BMP in 1 week. RTC in about 2 weeks for evaluation Assessment & Plan (08/28/2022 10:38 AM EST): Blood pressure currently uncontrolled and he does not take blood pressure at home so unknown where his blood pressure is outside of office. Continue losartan 25 mg daily and will increase carvedilol to 12.5 mg Prescription for blood pressure cuff given asked patient to take his blood pressure twice a day once in the morning once in the evening record on a log and staff will call him next week to see where his blood pressure is typically at home. Discussed with him goal blood pressure is 130/80 or less and he is to call office for any concerns Mixed hyperlipidemia 08/28/2022 Overview (11/11/2022): Images from the original note were not included. 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 12/26/2021 Assessment & Plan (08/28/2022 10:31 AM EST): Continue Plavix for at least 1 year which will be in December of next year- 2022, lifelong aspirin Denies any bleeding tendencies or concerns Acute bronchitis 12/03/2021 11/10/2023 Benign prostatic hyperplasia 12/03/2021 Chest pain 12/03/2021 11/10/2023 Conjunctivitis 12/03/2021 11/10/2023 COVID-19 12/03/2021 11/10/2023 Diaphragmatic hernia 12/03/2021 11/10/2023 Dyspnea 12/03/2021 11/10/2023 Epididymitis 12/03/2021 11/10/2023 Hypothyroidism 12/03/2021 11/10/2023 Vertigo 12/03/2021 11/10/2023 Proteinuria 12/03/2021 11/10/2023 Primary erectile dysfunction 12/03/2021 Encounters Date Type Department Care Team Description 05/04/2025 [facility] at [address] [id number] Akosua Saucedo MD Essential hypertension (Primary Dx); Coronary artery disease involving standing rock coronary artery of standing rock heart without angina pectoris from Last 3 Months Family History Medical History Relation Name Comments CABG Father Coronary artery disease Father Atrial fibrillation Mother Cardiomyopathy Mother Coronary artery disease Mother Hyperlipidemia Mother Hypertension Mother Stroke Mother pacemaker Mother Relation Name Status Comments Father Mother Social History Tobacco Use Types Packs/Day Years Used Date Smoking Tobacco: Never Smokeless Tobacco: Never Tobacco Cessation:Counseling Given: Not Answered Alcohol Use Standard Drinks/Week Comments Not Currently 0 (1 standard drink = 0.6 oz pur e alcohol) [place] Safety & Environment Answer Date Rec orded Fear of Current or Ex-Partner Not on file Emotionally Abused Not on file 12/11/2023 Physically Abused Not on file 12/11/2023 Sexually Abused Not on file 12/11/2023 Physically or Sexually Abused Not on file Sex and Gender Information Value Date Recorded Sex Assigned at Not on file Legal Sex Male 12:30 AM EDT Gender Identity Not on file Sexual Orientation Not on file Last Filed Vital Signs Vital Sign Reading Time Taken Comments Blood Pressure 140/88 11/15/2024 10:40 AM EST Pulse 73 11/15/2024 10:40 AM EST Temperature 36.8 C (98.3 F) 12/12/2021 3:06 PM EST Respiratory Rate - - Oxygen Saturation 97% 11/15/2024 10:40 AM EST Inhaled Oxygen Concentration - - Weight 117 kg (258 lb) 11/15/2024 10:40 AM EST Height 188 cm (6' 2 ) 11/15/2024 10:40 AM EST Body Mass Index 33.13 11/15/2024 10:40 AM EST Plan of Treatment Health Maintenance Due Date Last Done Comments CT Colonography 1958 Colonoscopy 1960 Colorectal Cancer Screening 1960 Diabetes: Hemoglobin A1C 1958 FIT-DNA 1958 FIT 1960 FOBT 1960 Medicare Annual Wellness (AWV) 1960 Sigmoidoscopy 1958 Diabetes: Retinopathy Screening 1968 Depression Screening 1970 Diabetes: Urine Protein Screening 1977 Pneumococcal Vaccine: 50+ Years (1 of 2 - PCV) 1977 Adult Tetanus 1980 Zoster Vaccines (1 of 2) 2008 Fall Risk Screening 2023 COVID-19 Vaccine (2023-2 5 season) 2024 02/19/2021, 01/29/2021 Influenza Vaccine (#1) 2025 HIB Vaccines Aged Out No longer eligi ble based on patient's age to complete this topic HPV Vaccines Aged Out No longer eligi ble based on patient's age to complete this topic IPV Vaccines Aged Out No longer eligi ble based on patient's age to complete this topic Meningococcal B Vaccine Aged Out No l onger eligible based on patient's age to complete this topic Meningococcal Vaccine Aged Out No vesna varinder eligible based on patient's age to complete this topic Rotavirus Vaccines Aged Out No longer eligible based on patient's age to complete this topic Insurance [facility] [place] [address] Relationship Specialty Start Date End Date Jean Carlos Dye MD [address] [place] [address] PCP - General 08/27/22
--- OUTSIDE RECORDS SUMMARY | 2025-05-17 10:52 | XMS_ITS | Encounter Summary ---
Author Organization [facility] Address [address] [place] [address] Care Team Providers Care Electromyographic Technician Name Role Phone Jean Carlos Dye MD Primary Care Provider [phone] Reason for Visit * Reason Comments Med Refill Encounter Details Date Type Department Care Team (Late st Contact Info) Description 05/04/2025 Refill [facility] [address] [place] [address] Akosua Saucedo MD [address] Mario Alberto [address] [facility] [place] [address] Essential hypertension (Primary Dx); Coronary artery disease involving [place] coronary artery of [place] heart without angina pectoris Social History Tobacco Use Types Packs/Day Years Used Date Smoking Tobacco: Never Smokeless Tobacco: Never Alcohol Use Standard Drinks/Week Comments Not Currently [...] on file Sexual Orientation Not on file documented as of this encounter Plan of Treatment Not on file documented as of this encounter Visit Diagnoses Diagnosis Essential hypertension- Primary Unspecified essential hypertension Coronary artery disease involving [place] coronary artery of [place] heart without angina pectoris documented in this encounter Care Teams Electromyographic Technician Relationship Specialty Start Date End Date Jean Carlos Dye MD [address] [facility] [address] [place] [phone] PCP - General 08/27/22 documented as of this encounter
--- OUTSIDE RECORDS SUMMARY | 2025-05-17 11:08 | XMS_ITS | CCD ---
Author Organization [facility] Care Team Providers Care Pyrotechnician Name Role Phone ADITYA SAUCEDOAB Augustine Attending [...] Unavailable Raya Dye MD Primary Care Provider [phone] Belkis Rosas APRN Attending Provider Medications Current [...] tablet with a meal Orally bid Active Mobile 2-Yry-Uez-Fish Oil (Fish Oil) 1,000 (120-180) mg capsule (2 sources) Start: 12-20-2024 take 2 capsules by mouth once daily Mobile 9-Sym-Sgk-Fish Oil (Fish Oil) 1,000 (120-180) mg capsule Active 2 CAP PO Daily December 20, 2024 1:00am Complies with drug therapy Start: 12-20-2024 take 2 capsules by m outh once daily Mobile 0-Gky-Fnr-Fish Oil (Fish Oil) 1,000 (120-180) mg capsule [...] disease (6 sources) 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; 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] Onset: 11-11-2022 Chronic [...] Range Facility Office Visiton 11-15-2024 Follow-up visit [id number] Tiffanie Mcknight 1960 M Date Provider Department Center 11/15/2024 271-AKOSUA SAUCEDO [facility] Family History Problem Relation Age of Onset Atrial fibrillation Mother Other Mother Hypertension Mother Cardiomyopathy Mother Coronary artery disease Mother Stroke Mother Hyperlipidemia Mother Coronary artery disease Father Other Father Family Status - Relation Status Age at Mother Father Level of Service:50821 [place] OFFICE/OUTPATIENT ESTABLISHED LOW MDM 20 MIN Normal [facility] Provider Letteron 03-16-2024 Provider Letter March 16, 2024 TIFFANIE JUAN LUIS [address] [address] : 1960 Dear Hao Juan Luis, We have been trying to reach you with no success regarding a referral from Dr Dye. It is important that you return our call upon receiving this letter. Also, at the time of your call, please provide us with your current information. Thank you for your prompt attention to this matter. Sincerely, [facility] General Surgery [phone] Normal [facility] Physician Referralon 024 Physician Referral [phone] [id number] Normal [facility] Physician Referralon 024 Physician Referral [id number] DD#[id number] Normal [facility] A1C HEMOGLOBINon 09-02-2023 HbA1c (Bld) [Mass fraction] 6.9 % [employer] Other Glucose - FINGER STICKon Glucose [Mass/Vol] 240 mg/dL [employer]2 [employer] Other HbA1c (Bld) [Mass fraction]o n 09-02-2023 A1C HEMOGLOBIN [employer] [facility] QR Artist Other Glucose - FINGER STICKon Glucose [Mass/Vol] 151 mg/dL [place] [employer] Other MicroAlb Creat Ratio,Uon Albumin DL <= 20 mg/L (U) [Mass/Vol] 1.1541705 mg/dL Normal 0.0-1.8 mg/dL [employer]2 [employer] Other Albumin/Creatinine DL <= 20 mg/L (U) [Mass ratio] 20.562126 mg/g Normal 0.0-30.0 mg/g [employer]2 [employer] Other Creatinine (U) [Mass/Vol] 65.4882110 mg/dL High 14.0-26.0 mg/dL [employer]2 [employer] Other Albumin DL <= 20 mg/L (U) [Mass/Vol] 1.3 mg/dL Normal 0.0-1.8 [facility] Comment on above: Order Comment: Reaso n for Exam Type 2 diabetes mellitus with hyperglycemia, without long-te Performed By: #### U RMACRERAT #### [facility] [address] [place] [address] [place] Creatinine, Urine (Random) 65.0 mg/dL High 14.0-26.0 [facility] Comment on above: Order Comment: Reaso n for Exam Type 2 diabetes mellitus with hyperglycemia, without long-te Performed By: #### U RMACRERAT #### [facility] [address] [place] [id number] [place] Microalbumin/Creatin ine Ratio 20.0 mg/g Normal 0.0-30.0 [facility] Comment on above: Order Comment: Reaso n for Exam Type 2 diabetes mellitus with hyperglycemia, without long-te Result Comment: 30-3 00 mg/g indicates an increased risk for diabetic nephropathy. Greater than 300 mg/g is consistent with clinical nephropathy. (Am. J. Kidney Disease 1995, 25:107) PERFORMED BY: [place] [address] PATHOLOGIST FOOD SPECIALIST VICK MARTE M.D. Performed By: #### U RMACRERAT #### [address] OCC BLD IMMUNO SCREENon 05-0 OCCULT BLOOD Negative Normal NEGATIVE [facility] Comment on above: Performed By: #### O BSCRN #### [facility] [address] [place] [address] Dr. Lauryn Chapman INSULINon 02-13-2023 Insulin 45.1 uIU/mL Critically high 2.6-24.9 [facility] Comment on above: Performed By: #### I NSULIN #### [facility] [address] [place] [address] Dr. Lauryn Chapman CBC AUTO DIFFon 02-12-2023 BASO # 0.1 103/ul Normal 0.0-0.1 [facility] Comment on above: Performed By: #### O BSCRN #### [facility] [address] [place] [address] Dr. Lauryn Chapman Basophils/100 WBC (Bld) 0.8 % Normal 0.2-2.0 [facility] Comment on above: Performed By: #### O BSCRN #### [facility] [address] [place] [address] Dr. Lauryn Chapman EO # 0.1 103/ul Normal 0.0-0.7 [facility] Comment on above: Performed By: #### O BSCRN #### [facility] [address] [place] [address] Dr. Lauryn Chapman Eosinophils/100 WBC (Bld) 1.9 % Normal 0.9-7.0 [facility] Comment on above: Performed By: #### O BSCRN #### [facility] [address] [place] [address] Dr. Lauryn Chapman Erythrocyte distribution width (RBC) [Ratio] 17.4 % Critically high 11.0-15.0 [facility] Comment on above: Performed By: #### O BSCRN #### [facility] [address] [place] [address] Dr. Lauryn Chapman Hematocrit (Bld) [Volume fraction] 49.5 % Normal 42.0-54.0 [facility] Comment on above: Performed By: #### O BSCRN #### [facility] [address] [place] [address] Dr. Lauryn Chapman Hemoglobin (Bld) [Mass/Vol] 15.6 g/dL Normal 14.0-18.0 [facility] Comment on above: Performed By: #### O BSCRN #### [facility] [address] [place] [address] Dr. Lauryn Chapman IG # 0.03 10e3/ul Normal 0.00-0.03 [facility] Comment on above: Performed By: #### O BSCRN #### [facility] [address] [place] [address] Dr. Lauryn Chapman IG % 0.4 % Normal 0.0-0.5 [facility] Comment on above: Performed By: #### O BSCRN #### [facility] [address] [place] [address] Dr. Lauryn Chapman LYMPH # 1.9 103/ul Normal 1.2-3.8 [facility] Comment on above: Performed By: #### O BSCRN #### [facility] [address] [place] [address] Dr. Lauryn Chapman Lymphocytes/100 WBC (Bld) 25.7 % Normal 20.5-60.0 [facility] Comment on above: Performed By: #### O BSCRN #### [facility] [address] [place] [address] Dr. Lauryn Chapman MANUAL DIFF REQ NO Normal [facility] Comment on above: Performed By: #### O BSCRN #### [facility] [address] [place] [address] Dr. Lauryn Chapman MCH (RBC) [Entitic mass] 23.6 pg Critically low 25.9-34.0 [facility] Comment on above: Performed By: #### O BSCRN #### [facility] [address] [place] [address] Dr. Lauryn Chapman MCHC (RBC) [Mass/Vol] 31.5 g/dL Normal 29.9-35.2 [facility] Comment on above: Performed By: #### O BSCRN #### [facility] [address] [place] [address] Dr. Lauryn Chapman MCV (RBC) [Entitic vol] 74.8 fL Critically low 80.0-94.0 [facility] Comment on above: Performed By: #### O BSCRN #### [facility] [address] [place] [address] Dr. Lauryn Chapman MONO # 0.5 103/ul Normal 0.3-0.8 [facility] Comment on above: Performed By: #### O BSCRN #### [facility] [address] [place] [address] Dr. Lauryn Chapman Monocytes/100 WBC (Bld) 7.3 % Normal 1.7-12.0 [facility] Comment on above: Performed By: #### O BSCRN #### [facility] [address] [place] [address] Dr. Lauryn Chapman NEUT # 4.7 103/ul Normal 1.4-6.5 [facility] Comment on above: Performed By: #### O BSCRN #### [facility] [address] [place] [address] Dr. Lauryn Chapman Neutrophils/100 WBC (Bld) 63.9 % Normal 43.0-75.0 [facility] Comment on above: Performed By: #### O BSCRN #### [facility] [address] [place] [address] Dr. Lauryn Chapman Platelet mean volume (Bld) [Entitic vol] 9.5 fL Normal 9.5-13.5 [facility] Comment on above: Performed By: #### O BSCRN #### [facility] [address] [address] [address] Lauryn Chapman PLT 188 103/ul Normal 150-450 [facility] Comment on above: Performed By: #### O BSCRN #### [facility] [address] [address] [address] Lauryn Chapman RBC 6.62 106/ul Critically high 4.70-6.10 [facility] Comment on above: Performed By: #### O BSCRN #### [facility] [address] [address] [address] Lauryn Chapman WBC 7.4 103/ul Normal 4.0-11.0 [facility] Comment on above: Performed By: #### O BSCRN #### [facility] [address] [place] [address] Dr. Lauryn Chapman DIRECT LDLon 02-12-2023 Cholesterol in LDL [Mass/Vol] 69 mg/dL Normal [facility] Comment on above: Performed By: #### T SH, LIPID, T7, CMP, DLDL, URIC #### [facility] [address] [address] [address] Lauryn Chapman DLDL NORMAL SEE BELOW Normal [facility] Comment on above: Result Comment: <100 mg/dl OPTIMAL 100 - 129 mg/dl NEAR OR ABOVE OPTIMAL 130 - 159 mg/dl BORDERLINE HIGH 160 - 189 mg/dl HIGH >190 mg/dl VERY HIGH Performed By: #### T SH, LIPID, T7, CMP, DLDL, URIC #### [facility] [address] [address] [address] Lauryn Chapman FREE THYROXINE INDEX T7on FTI 2.41 Normal 1.30-4.50 [facility] Comment on above: Performed By: #### O BSCRN #### [facility] [address] [address] [address] Lauryn Chapman T3U 29.0 % Critically low 33.0-40.0 [facility] Comment on above: Performed By: #### O BSCRN #### [facility] [address] [address] [address] Lauryn Chapman T4 [Mass/Vol] 8.30 ug/dL Normal 4.50-12.10 [facility] Comment on above: Performed By: #### O BSCRN #### [facility] [address] [place] [address] Dr. Lauryn Chapman GLYCOHEMOGLOBIN A1Con 2022 ADA RECOMMENDATION SEE BELOW Normal [facility] Comment on above: Result Comment: ADA RECOMMENDED LIMIT 4.0 - 6.0 ADA THERAPEUTIC TARGET < 7.0 ACTION SUGGESTED > 7.0 Performed By: #### A 1C #### [facility] [address] [place] [address] Dr. Lauryn Chapman Glucose [Mass/Vol] 177 mg/dL Normal [facility] Comment on above: Performed By: #### A 1C #### [facility] [address] [place] [address] Dr. Lauryn Chapman HbA1c (Bld) [Mass fraction] 7.8 % Critically high 4.5-6.2 [facility] Comment on above: Performed By: #### A 1C #### [facility] [address] [place] [address] Dr. Lauryn Chapman LIPID PROFILEon 02-12-2023 CHOL-HDL RATIO NORM SEE BELOW Normal [facility] Comment on above: Result Comment: 3.3 - 4.4 LOW RISK 4.4 - 7.1 AVERAGE RISK 7.1 - 11.0 MODERATE RISK >11.0 HIGH RISK Performed By: #### T SH, LIPID, T7, CMP, DLDL, URIC #### [facility] [address] [place] [address] Dr. Lauryn Chapman Cholesterol [Mass/Vol] 186 mg/dL Normal <=200 [facility] Comment on above: Performed By: #### T SH, LIPID, T7, CMP, DLDL, URIC #### [facility] [address] [place] [address] Dr. Lauryn Chapman Cholesterol in HDL [Mass/Vol] 33 mg/dL Critically low 40-60 [facility] Comment on above: Performed By: #### T SH, LIPID, T7, CMP, DLDL, URIC #### [facility] [address] [address] [address] Lauryn Chapman Cholesterol.total/Ch olesterol in HDL [Mass ratio] 5.6 {ratio} Normal [facility] Comment on above: Performed By: #### T SH, LIPID, T7, CMP, DLDL, URIC #### [facility] [address] [address] [address] Lauryn Chapman HDL NORMAL > or = 60 mg/dl - LOW CARDIOVASCULAR RISK <40 mg/dl - HIGH CARDIOVASCULAR RISK Normal [facility] Comment on above: Performed By: #### T SH, LIPID, T7, CMP, DLDL, URIC #### [facility] [address] [address] [address] Lauryn Chapman Triglyceride [Mass/Vol] 699 mg/dL Critically high <=150 [facility] Comment on above: Performed By: #### T SH, LIPID, T7, CMP, DLDL, URIC #### [facility] [address] [address] [address] Lauryn Chapman VLDL CALC 139.8 mg/dL Normal [facility] Comment on above: Performed By: #### T SH, LIPID, T7, CMP, DLDL, URIC #### [facility] [address] [place] [address] Dr. Lauryn Chapman PROF 14(COMP METB)on 023 Albumin [Mass/Vol] 3.9 g/dL Normal 3.4-5.0 [facility] Comment on above: Performed By: #### T SH, LIPID, T7, CMP, DLDL, URIC #### [facility] [address] [address] [address] Lauryn Chapman Albumin/Globulin [Mass ratio] 1.0 {ratio} Normal [facility] Comment on above: Performed By: #### T SH, LIPID, T7, CMP, DLDL, URIC #### [facility] [address] [address] [address] Lauryn Chapman ALP [Catalytic activity/Vol] 71 U/L Normal 46-116 [facility] Comment on above: Performed By: #### T SH, LIPID, T7, CMP, DLDL, URIC #### [facility] [address] [address] [address] Lauryn Chapman ALT [Catalytic activity/Vol] 62 U/L Normal 16-63 [facility] Comment on above: Performed By: #### T SH, LIPID, T7, CMP, DLDL, URIC #### [facility] [address] [address] [address] Lauryn Chapman Anion gap [Moles/Vol] 14.2 mmol/L Normal [facility] Comment on above: Performed By: #### T SH, LIPID, T7, CMP, DLDL, URIC #### [facility] [address] [place] [address] Dr. Lauryn Chapman AST [Catalytic activity/Vol] 30 U/L Normal 15-37 [facility] Comment on above: Performed By: #### T SH, LIPID, T7, CMP, DLDL, URIC #### [facility] [address] [place] [address] Dr. Lauryn Chapman Bilirubin [Mass/Vol] 0.6 mg/dL Normal 0.2-1.0 [facility] Comment on above: Performed By: #### T SH, LIPID, T7, CMP, DLDL, URIC #### [facility] [address] [place] [address] Dr. Lauryn Chapman Calcium [Mass/Vol] 9.3 mg/dL Normal 8.5-10.1 [facility] Comment on above: Performed By: #### T SH, LIPID, T7, CMP, DLDL, URIC #### [facility] [address] [place] [address] Dr. Lauryn Chapman Chloride [Moles/Vol] 99 mmol/L Normal 98-107 [facility] Comment on above: Performed By: #### T SH, LIPID, T7, CMP, DLDL, URIC #### [facility] [address] [place] [address] Dr. Lauryn Chapman CO2 [Moles/Vol] 27.1 mmol/L Normal 21.0-32.0 [facility] Comment on above: Performed By: #### T SH, LIPID, T7, CMP, DLDL, URIC #### [facility] [address] [place] [address] Dr. Lauryn Chapman Creatinine [Mass/Vol] 1.06 mg/dL Normal 0.70-1.30 [facility] Comment on above: Performed By: #### T SH, LIPID, T7, CMP, DLDL, URIC #### [facility] [address] [place] [address] Dr. Lauryn Chapman EGFR-AF BARBADIAN >60 Normal >=60 [facility] Comment on above: Performed By: #### T SH, LIPID, T7, CMP, DLDL, URIC #### [facility] [address] [place] [address] Dr. Lauryn Chapman EGFR-NON AF BARBADIAN >60 Normal >=60 [facility] Comment on above: Performed By: #### T SH, LIPID, T7, CMP, DLDL, URIC #### [facility] [address] [place] [address] Dr. Lauryn Chapman Globulin (S) [Mass/Vol] 3.9 g/dL Normal [facility] Comment on above: Performed By: #### T SH, LIPID, T7, CMP, DLDL, URIC #### [facility] [address] [place] [address] Dr. Lauryn Chapman Glucose [Mass/Vol] 167 mg/dL Critically high 74-106 [facility] Comment on above: Performed By: #### T SH, LIPID, T7, CMP, DLDL, URIC #### [facility] [address] [place] [address] Dr. Lauryn Chapman Potassium [Moles/Vol] 4.3 mmol/L Normal 3.5-5.1 [facility] Comment on above: Performed By: #### T SH, LIPID, T7, CMP, DLDL, URIC #### [facility] [address] [place] [address] Dr. Lauryn Chapman Protein [Mass/Vol] 7.8 g/dL Normal 6.4-8.2 [facility] Comment on above: Performed By: #### T SH, LIPID, T7, CMP, DLDL, URIC #### [facility] [address] [place] [address] Dr. Lauryn Chapman Sodium [Moles/Vol] 136 mmol/L Normal 136-145 [facility] Comment on above: Performed By: #### T SH, LIPID, T7, CMP, DLDL, URIC #### [facility] [address] [place] [address] Dr. Lauryn Chapman Urea nitrogen [Mass/Vol] 20.0 mg/dL Critically high 7.0-18.0 [facility] Comment on above: Performed By: #### T SH, LIPID, T7, CMP, DLDL, URIC #### [facility] [address] [place] [address] Dr. Lauryn Chapman Urea nitrogen/Creatinine [Mass ratio] 18.9 mg/mg Normal [facility] Comment on above: Performed By: #### T SH, LIPID, T7, CMP, DLDL, URIC #### [facility] [address] [place] [address] Dr. Lauryn Chapman TSHon 02-12-2023 TSH 6.440 uIU/mL Critically high 0.358-3.740 [facility] Comment on above: Performed By: #### O BSCRN #### [facility] [address] [place] [address] Dr. Lauryn Chapman URIC ACID SERUMon 02-12-2023 Urate [Mass/Vol] 9.6 mg/dL Critically high 3.5-7.2 [facility] Comment on above: Performed By: #### T SH, LIPID, T7, CMP, DLDL, URIC #### [facility] [address] [place] [address] Dr. Lauryn Chapman PROF CHEM 8 (BAS METB)on Anion gap [Moles/Vol] 16.1 mmol/L Normal [facility] Comment on above: Performed By: #### O BSCRN #### [facility] [address] [place] [address] Dr. Lauryn Chapman Calcium [Mass/Vol] 8.8 mg/dL Normal 8.5-10.1 [facility] Comment on above: Performed By: #### O BSCRN #### [facility] [address] [address] [address] Lauryn Chapman Chloride [Moles/Vol] 104 mmol/L Normal 98-107 [facility] Comment on above: Performed By: #### O BSCRN #### [facility] [address] [address] [address] Lauryn Chapman CO2 [Moles/Vol] 22.4 mmol/L Normal 21.0-32.0 [facility] Comment on above: Performed By: #### O BSCRN #### [facility] [address] [address] [address] Lauryn Chapman Creatinine [Mass/Vol] 0.79 mg/dL Normal 0.70-1.30 [facility] Comment on above: Performed By: #### O BSCRN #### [facility] [address] [address] [address] Lauryn Chapman EGFR-AF BARBADIAN >60 Normal >=60 [facility] Comment on above: Performed By: #### O BSCRN #### [facility] [address] [address] [address] Lauryn Chapman EGFR-NON AF BARBADIAN >60 Normal >=60 [facility] Comment on above: Performed By: #### O BSCRN #### [facility] [address] [address] [address] Lauryn Chapman Glucose [Mass/Vol] 169 mg/dL Critically high 74-106 [facility] Comment on above: Performed By: #### O BSCRN #### [facility] [address] [address] [address] Lauryn Chapman Potassium [Moles/Vol] 4.5 mmol/L Normal 3.5-5.1 [facility] Comment on above: Performed By: #### O BSCRN #### [facility] [address] [address] [address] Lauryn Chapman Sodium [Moles/Vol] 138 mmol/L Normal 136-145 [facility] Comment on above: Performed By: #### O BSCRN #### [facility] [address] [address] [address] Lauryn Chapman Urea nitrogen [Mass/Vol] 12.0 mg/dL Normal 7.0-18.0 [facility] Comment on above: Performed By: #### O BSCRN #### [facility] [address] [address] [address] Lauryn Chapman Urea nitrogen/Creatinine [Mass ratio] 15.2 mg/mg Normal [facility] Comment on above: Performed By: #### O BSCRN #### [facility] [address] [place] [address] Dr. Lauryn Chapman PROF CHEM 8 (BAS METB)on Anion gap [Moles/Vol] 19.7 mmol/L Normal [facility] Comment on above: Performed By: #### O BSCRN #### [facility] [address] [place] [address] Dr. Lauryn Chapman Calcium [Mass/Vol] 8.8 mg/dL Normal 8.5-10.1 [facility] Comment on above: Performed By: #### O BSCRN #### [facility] [address] [place] [address] Dr. Lauryn Chapman Chloride [Moles/Vol] 103 mmol/L Normal 98-107 [facility] Comment on above: Performed By: #### O BSCRN #### [facility] [address] [place] [address] Dr. Lauryn Chapman CO2 [Moles/Vol] 20.1 mmol/L Critically low 21.0-32.0 [facility] Comment on above: Performed By: #### O BSCRN #### [facility] [address] [place] [address] Dr. Lauryn Chapman Creatinine [Mass/Vol] 0.87 mg/dL Normal 0.70-1.30 [facility] Comment on above: Performed By: #### O BSCRN #### [facility] [address] [place] [address] Dr. Lauryn Chapman EGFR-AF BARBADIAN >60 Normal >=60 [facility] Comment on above: Performed By: #### O BSCRN #### [facility] [address] [place] [address] Dr. Lauryn Chapman EGFR-NON AF BARBADIAN >60 Normal >=60 [facility] Comment on above: Performed By: #### O BSCRN #### [facility] [address] [address] [address] Lauryn Chapman Glucose [Mass/Vol] 170 mg/dL Critically high 74-106 [facility] Comment on above: Performed By: #### O BSCRN #### [facility] [address] [address] [address] Lauryn Chapman Potassium [Moles/Vol] 4.8 mmol/L Normal 3.5-5.1 [facility] Comment on above: Performed By: #### O BSCRN #### [facility] [address] [address] [address] Lauryn Chapman Sodium [Moles/Vol] 138 mmol/L Normal 136-145 [facility] Comment on above: Performed By: #### O BSCRN #### [facility] [address] [place] [address] Dr. Lauryn Chapman Urea nitrogen [Mass/Vol] 15.0 mg/dL Normal 7.0-18.0 [facility] Comment on above: Performed By: #### O BSCRN #### [facility] [address] [place] [address] Dr. Lauryn Chapman Urea nitrogen/Creatinine [Mass ratio] 17.2 mg/mg Normal [facility] Comment on above: Performed By: #### O BSCRN #### [facility] [address] [address] [address] Lauryn Chapman LIPID PROFILEon 08-28-2022 CHOL-HDL RATIO NORM SEE BELOW Normal [facility] Comment on above: Result Comment: 3.3 - 4.4 LOW RISK 4.4 - 7.1 AVERAGE RISK 7.1 - 11.0 MODERATE RISK >11.0 HIGH RISK Performed By: #### L IVER, LIPID #### [facility] [address] [address] [address] Lauryn Chapman Cholesterol [Mass/Vol] 106 mg/dL Normal <=200 [facility] Comment on above: Performed By: #### L IVER, LIPID #### [facility] [address] [address] [address] Lauryn Chapman Cholesterol in HDL [Mass/Vol] 33 mg/dL Critically low 40-60 [facility] Comment on above: Performed By: #### L IVER, LIPID #### [facility] [address] [address] [address] Lauryn Chapman Cholesterol in LDL [Mass/Vol] 30.2 mg/dL Normal [facility] Comment on above: Performed By: #### L IVLETTY, LIPID #### [facility] [address] [address] [address] Lauryn Chapman Cholesterol.total/Ch olesterol in HDL [Mass ratio] 3.2 {ratio} Normal [facility] Comment on above: Performed By: #### L IVER, LIPID #### [facility] [address] [address] [address] Lauryn Chapman HDL NORMAL > or = 60 mg/dl - LOW CARDIOVASCULAR RISK <40 mg/dl - HIGH CARDIOVASCULAR RISK Normal [facility] Comment on above: Performed By: #### L IVLETTY, LIPID #### [facility] [address] [address] [address] Lauryn Chapman LDL CALC NORMAL SEE BELOW Normal [facility] Comment on above: Result Comment: <100 mg/dl OPTIMAL 100 - 129 mg/dl NEAR OR ABOVE OPTIMAL 130 - 159 mg/dl BORDERLINE HIGH 160 - 189 mg/dl HIGH >190 mg/dl VERY HIGH Performed By: #### L IVLETTY, LIPID #### [facility] [address] [address] [address] Lauryn Chapman Triglyceride [Mass/Vol] 214 mg/dL Critically high <=150 [facility] Comment on above: Performed By: #### L IVER, LIPID #### [facility] [address] [address] [address] Lauryn Chapman VLDL CALC 42.8 mg/dL Normal [facility] Comment on above: Performed By: #### L IVER, LIPID #### [facility] [address] [place] [address] Dr. Lauryn Chapman LIVER PROFILEon 08-28-2022 Albumin [Mass/Vol] 3.6 g/dL Normal 3.4-5.0 [facility] Comment on above: Performed By: #### L IVER, LIPID #### [facility] [address] [place] [address] Dr. Lauryn Chapman Albumin/Globulin [Mass ratio] 1.1 {ratio} Normal [facility] Comment on above: Performed By: #### L IVLETTY, LIPID #### [facility] [address] [place] [address] Dr. Lauryn Chapman ALP [Catalytic activity/Vol] 73 U/L Normal 46-116 [facility] Comment on above: Performed By: #### L IVER, LIPID #### [facility] [address] [place] [address] Dr. Lauryn Chapman ALT [Catalytic activity/Vol] 48 U/L Normal 16-63 [facility] Comment on above: Performed By: #### L IVLETTY, LIPID #### [facility] [address] [place] [address] Dr. Lauryn Chapman AST [Catalytic activity/Vol] 24 U/L Normal 15-37 [facility] Comment on above: Performed By: #### L IVER, LIPID #### [facility] [address] [place] [address] Dr. Lauryn Chapman BILI, CONJUGATED 0.1 mg/dL Normal 0.0-0.2 [facility] Comment on above: Performed By: #### L IVER, LIPID #### [facility] [address] [place] [address] Dr. Lauryn Chapman Bilirubin [Mass/Vol] 0.5 mg/dL Normal 0.2-1.0 [facility] Comment on above: Performed By: #### L IVER, LIPID #### [facility] [address] [place] [address] Dr. Lauryn Chapman Globulin (S) [Mass/Vol] 3.4 g/dL Normal [facility] Comment on above: Performed By: #### L FELICIA, LIPID #### [facility] [address] [address] [address] Lauryn Chapman Protein [Mass/Vol] 7.0 g/dL Normal 6.4-8.2 [facility] Comment on above: Performed By: #### L FELICIA, LIPID #### [facility] [address] [address] [address] Lauryn Chapman BASIC METABOLIC PANELon 03- Calcium [Mass/Vol] 8.3 mg/dL Low 8.6-10.3 [facility] Comment on above: Order Comment: No: D o not add to previous draw Performed By: #### 0 0071 #### [facility] [address] [place] [address], [facility] Chloride [Moles/Vol] 109 mmol/L High 98-107 [facility] Comment on above: Order Comment: No: D o not add to previous draw Performed By: #### 0 0071 #### [facility] [address] [place] [address], [facility] CO2 [Moles/Vol] 20 mmol/L Low 21-31 [facility] Comment on above: Order Comment: No: D o not add to previous draw Performed By: #### 0 0071 #### [facility] [address] [place] [id number], [facility] Creatinine [Mass/Vol] 0.76 mg/dL Normal 0.70-1.30 [facility] Comment on above: Order Comment: No: D o not add to previous draw Performed By: #### 0 0071 #### [facility] [address] [place] [address], [place] GFR/1.73 sq M.predicted among blacks MDRD (S/P/Bld) [Vol rate/Area] mL/min/{1.73_m2} Normal >60 [facility] Comment on above: Order Comment: No: D o not add to previous draw Performed By: #### 0 0071 #### [facility] [address] [place] [address], [place] GFR/1.73 sq M.predicted among non-blacks MDRD (S/P/Bld) [Vol rate/Area] mL/min/{1.73_m2} Normal >60 [facility] Comment on above: Order Comment: No: D o not add to previous draw Performed By: #### 0 0071 #### [facility] [address] [place] [address], [place] Glucose [Mass/Vol] 146 mg/dL High 70-100 [facility] Comment on above: Order Comment: No: D o not add to previous draw Performed By: #### 0 0071 #### [facility] [address] [place] [address], [place] Potassium [Moles/Vol] 4.0 mmol/L Normal 3.5-5.1 [facility] Comment on above: Order Comment: No: D o not add to previous draw Performed By: #### 0 0071 #### [facility] [address] [place] [address], [place] Sodium [Moles/Vol] 136 mmol/L Normal 136-145 [facility] Comment on above: Order Comment: No: D o not add to previous draw Performed By: #### 0 0071 #### [facility] [address] [place] [address], [place] Urea nitrogen [Mass/Vol] 12 mg/dL Normal 7-25 [facility] Comment on above: Order Comment: No: D o not add to previous draw Performed By: #### 0 0071 #### [facility] [address] [place] [address], [place] CBC COMPLETE BLOOD COUNTon 0 - Erythrocyte distribution width (RBC) [Ratio] 16.8 % High 11.5-15.0 [facility] Comment on above: Order Comment: No: D o not add to previous draw Performed By: #### 5 [id number] #### [facility] [address] [place] [address], [facility] Hematocrit (Bld) [Volume fraction] 42.4 % Normal 39.0-50.0 [facility] Comment on above: Order Comment: No: D o not add to previous draw Performed By: #### 5 0608 #### [facility] [address] [place] [id number], [facility] Hemoglobin (Bld) [Mass/Vol] 13.6 g/dL Normal 13.0-17.0 [facility] Comment on above: Order Comment: No: D o not add to previous draw Performed By: #### 5 0608 #### [facility] [address] [place] [address], [facility] MCH (RBC) [Entitic mass] 23.8 pg Low 27.0-33.0 [facility] Comment on above: Order Comment: No: D o not add to previous draw Performed By: #### 5 0608 #### [facility] [address] [place] [address], [facility] MCHC (RBC) [Mass/Vol] 32.1 g/dL Normal 32.0-35.0 [facility] Comment on above: Order Comment: No: D o not add to previous draw Performed By: #### 5 0608 #### [facility] [address] [place] [id number], [facility] MCV (RBC) [Entitic vol] 74.3 fL Low 82.0-98.0 [facility] Comment on above: Order Comment: No: D o not add to previous draw Performed By: #### 5 0608 #### [facility] [address] [place] [address], [facility] Nucleated RBC/100 WBC (Bld) [Ratio] 0 % Normal 0-0 [facility] Comment on above: Order Comment: No: D o not add to previous draw Performed By: #### 5 0608 #### [facility] [address] [place] [address], [facility] PLAT CNT 186 10*3/uL Normal 150-400 [facility] Comment on above: Order Comment: No: D o not add to previous draw Performed By: #### 5 0608 #### [facility] [address] [place] [address], [facility] RBC (Bld) [#/Vol] 5.71 10*6/uL High 4.20-5.70 [facility] Comment on above: Order Comment: No: D o not add to previous draw Performed By: #### 5 0608 #### [facility] [address] [place] [address], [facility] WBC (Bld) [#/Vol] 6.12 10*3/uL Normal 4.00-10.60 [facility] Comment on above: Order Comment: No: D o not add to previous draw Performed By: #### 5 0608 #### [facility] [address] Cardiovascular Lab Reporton 12-26-2021 Cardiovascular Lab Report [facility] Patient Name: Juan Luis Tiffanie [facility] MR #: [id number] Physician: Akosua Saucedo, Department of M.D. Medicine Service Date: 12/26/2021 Division of Birthdate: 1960 Cardiology Room #: Adult Cardiovascular Services [place] [address] Cardiovascular Laboratory Report FINAL IMPRESSIONS: 1. Severe [...] the left radial artery was obtained. A 6-Ukrainian glide sheath was inserted without difficulty. Bilateral selective coronary angiography was performed using JL4 and JR4 catheters. After reviewing the images, it was elected to proceed with the physiological assessment of the left anterior descending. A 6-Ukrainian XB3.5 guide catheter was advanced over a [...] (more content not included)... Normal [facility] Vital Signs Date Time Vital Sign Value Performing Clinician Facility 04-18-2025 08:07-0400 Body height 182.88 cm Raya Dye MD Work Phone: [facility] 04-18-2025 08:07-0400 Body mass index (BMI) [Ratio] 30.9 kg/m2 Raya Dye MD Work Phone: [facility] 04-18-2025 08:07-0400 Body weight 103.3 kg Raya Dye MD Work Phone: [facility] 04-18-2025 08:07-0400 Diastolic blood pressure 71 mm[Hg] Raya Dye MD Work Phone: [facility] 04-18-2025 08:07-0400 Heart rate 65 /min Raya Dye MD Work Phone: [facility] 04-18-2025 08:07-0400 Respiratory rate 18 /min Raya Dye MD Work Phone: [facility] 04-18-2025 08:07-0400 SaO2% (BldA) [Mass fraction] 98 % Raya Dye MD Work Phone: [facility] 04-18-2025 08:07-0400 Systolic blood pressure 107 mm[Hg] Raya Dye MD Work Phone: [facility] 12-20-2024 08:40-0500 Body height 182.88 cm [facility] 12-20-2024 08:40-0500 Body mass index (BMI) [Ratio] 34.2 kg/m2 [facility] 12-20-2024 08:40-0500 Body weight 114.3 kg [facility] 12-20-2024 08:40-0500 Diastolic blood pressure 80 mm[Hg] [facility] 12-20-2024 08:40-0500 Heart rate 63 /min [facility] 12-20-2024 08:40-0500 Respiratory rate 18 /min [facility] 12-20-2024 08:40-0500 SaO2% (BldA) [Mass fraction] 98 % [facility] 12-20-2024 08:40-0500 Systolic blood pressure 124 mm[Hg] [facility] 03-17-2024 08:23-0400 Body height 182.88 cm [facility] 03-17-2024 08:23-0400 Body mass index (BMI) [Ratio] 35.4 kg/m2 [facility] 03-17-2024 08:23-0400 Body weight 118.5 kg [facility] 03-17-2024 08:23-0400 Diastolic blood pressure 89 mm[Hg] [facility] 03-17-2024 08:23-0400 Heart rate 67 /min [facility] 03-17-2024 08:23-0400 Respiratory rate 18 /min [facility] 03-17-2024 08:23-0400 SaO2% (BldA) [Mass fraction] 98 % [facility] 03-17-2024 08:23-0400 Systolic blood pressure 131 mm[Hg] [facility] 12-11-2023 10:57-0500 Body height 182.88 cm [facility] 12-11-2023 10:57-0500 Body mass index (BMI) [Ratio] 36 kg/m2 [facility] 12-11-2023 10:57-0500 Body weight 120.4 kg [facility] 12-11-2023 10:57-0500 Diastolic blood pressure 80 mm[Hg] [facility] 12-11-2023 10:57-0500 Heart rate 66 /min [facility] 12-11-2023 10:57-0500 Respiratory rate 18 /min [facility] 12-11-2023 10:57-0500 SaO2% (BldA) [Mass fraction] 98 % [facility] 12-11-2023 10:57-0500 Systolic blood pressure 132 mm[Hg] [facility] 09-02-2023 10:15-0500 Body height 182.88 cm Belkis Scally Other [employer] [facility] [employer] Other 09-02-2023 10:15-0500 Body mass index (BMI) [Ratio] 37.85 kg/m2 Belkis Scally Other [employer] [facility] [employer] Other 09-02-2023 10:15-0500 Body weight 126.6 kg Belkis Scally Other [employer] Other 09-02-2023 10:15-0500 Diastolic blood pressure 79 mm[Hg] Belkis Scally Other [employer] Other 09-02-2023 10:15-0500 Respiratory rate 18 /min Belkis Scally Other [employer] Other 09-02-2023 10:15-0500 SaO2% (BldA) [Mass fraction] 97 % Belkis Scally Other [employer] Other 09-02-2023 10:15-0500 Systolic blood pressure 131 mm[Hg] Belkis Scally Other [employer] Other 07-23-2023 08:45-0400 Body height 182.88 cm Belkis Scally Other [employer] Other 07-23-2023 08:45-0400 Body mass index (BMI) [Ratio] 37.85 kg/m2 Belkis Scally Other [employer] Other 07-23-2023 08:45-0400 Body weight 126.6 kg Belkis Scally Other [employer] Other 07-23-2023 08:45-0400 Diastolic blood pressure 88 mm[Hg] Belkis Scally Other [employer] Other 07-23-2023 08:45-0400 Respiratory rate 18 /min Belkis Scally Other [employer] Other 07-23-2023 08:45-0400 SaO2% (BldA) [Mass fraction] 98 % Belkis Scally Other [employer] Other 07-23-2023 08:45-0400 Systolic blood pressure 137 mm[Hg] Belkis Scally Other [employer] Other Encounters Encounter Date Encounter Type Care Provider Facility Start: 04-18-2025 End: 04-18-2025 ambulatory Raya Dye MD Work Phone: [facility] Work Phone: Start: 04-18-2025 End: 04-18-2025 Patient encounter procedure Belkis Rosas [facility] Work Phone: Start: 12-20-2024 End: 12-20-2024 ambulatory [facility] Work Phone: Start: 12-20-2024 End: 12-20-2024 Patient encounter procedure [facility] Work Phone: Start: 11-15-2024 End: 11-15-2024 ambulatory [address] [facility] Start: 03-17-2024 End: 03-17-2024 ambulatory [facility] Work Phone: Start: 03-17-2024 End: 03-17-2024 Patient encounter procedure [facility] Work Phone: Start: 12-11-2023 End: 12-11-2023 ambulatory [facility] Work Phone: Start: 12-11-2023 End: 12-11-2023 Patient encounter procedure [facility] Work Phone: Start: 09-02-2023 (DM) Diabetes Belkis Garcia [facility] Start: 09-02-2023 End: 09-03-2023 ambulatory Raya Dye [facility] [employer] Other Start: 07-24-2023 End: 07-24-2023 ambulatory Belkis Rosas Other [employer] Other Start: 07-24-2023 Telephone encounter Belkis ron [facility] Start: 07-23-2023 (DM) Diabetes Belkis Garcia ds [facility] Start: 07-23-2023 End: 07-23-2023 ambulatory Belkis Rosas Other [employer] Other Start: 06-03-2023 End: 06-03-2023 ambulatory Belkis Rosas Other [employer] Other Start: 06-03-2023 Telephone encounter Belkis polk [facility] Start: 02-21-2023 Encounter for genera l adult medical examination without abnormal findings DR RAYA DYE . [facility] Start: 02-18-2023 End: 02-18-[address] [...] Start: 12-26-2021 End: 12-27-2021 ambulatory AKOSUA SAUCEDO Facility:[facility] Procedures Date Procedure Procedure Detail Performing Clinician Start: 02-12-[address] AKOSUA DELUCA Comment on above: Performed By: #### P [facility] #### [facility] [address] [place] [address] Dr. Lauryn Chapman Plan of Treatment Date Care Activity Detail Author Comprehensive metabo lic 1999 panel - Serum or Plasma [facility] enter Comprehensive metabo lic 2000 panel - Serum or Plasma [facility] enter Comprehensive metabo lic 2000 panel - Serum or Plasma [facility] enter [facility] Payers Date Payer Category Payer Medicare [id number] 2.1 [id number] 1959 Private Health Insurance [id number] 1959 Private Health Insurance [id number] 1961 Self-pay 1960 Unknown [id number] 2.16.8 [id number] 1960 Unknown [id number] 2.16.84 [id number] 1960 Unknown [id number] 2.16.84 [id number] 1960 Unknown [id number] 2.16.84 [id number] 1960 Unknown [id number] 2.16.84 [id number] 1960 Unknown [id number] 2.16.84 [id number] 1960 Unknown [id number] 2.16.84 [id number] 1960 Unknown [id number] 2.16.84 [id number] Private Health Insurance [id number] Unknown [id number] 2.16.8 [id number] Social History Date Type Detail Facility Sex Assigned At [employer] Other Start: 1960 Sex Assigned At Male F [facility] Start: 12-11-2023 End: 12-11-2023 Tobacco smoking status NHIS Never smoked tobacco (finding) [facility] Start: 12-20-2024 Sex Male (finding) [facility] Procedure Code Equipment Code [...] [facility] Start: 12-20-2024 End: 12-20-2024 [facility] Start: 12-20-2024 End: 12-22-2024 Clinical Notes 06-03-2023 to 11-15-2024 Note Date & Type Note Facility 11-15-2024 Note [facility] Cardiology Clinic Note Chief Complaint: Patient here for 1 year follow up CAD, hypertension, and dyslipidemia. Had routine labs with lipid panels in April and Aug 2024. He is no longer taking atorvastatin, as he is now taking simvastatin. He isn't sure why, but thinks his PCP and cinder block mason changed this. Patient remains very active and goes to the gym 4 days a week. Denies chest pain, SOB, and palpitations. Says his BP was 132/83 this morning before the gym. HPI: Tiffanie Mcknight is a 64 y.o. male He continues to lose weight and is now seeing an cinder block mason. He started him on Jardiance. Still goes [...] disease including aspirin, (more content not included)... [facility] 09-02-2023 Evaluation note Encounter Date Diagnosis [...] diabetes medication issues. 6. Prescriptions: Patient uses [employer] Aug, Hyperlipidemia, unspecified hyperlipidemia type (ICD-10 - [...] UTD for patient hypertriglyceride provided and reviewed. [employer] Other 10-04-2023 Evaluation note* Encounter Date Diagnosis [...] diabetes medication issues. 6. Prescriptions: Patient uses [employer] Jul, Hyperlipidemia, unspecified hyperlipidemia type (ICD-10 - [...] Jul, BMI 37.0-37.9, adult (ICD-10 - Z68.37) [employer] Other 08-15-2023 Evaluation note* Encounter Date Diagnosis Assessment Notes Treatment Notes Treatment Clinical Notes May, Type 2 diabetes mellitus with hyperglycemia, without long-term current use of insulin (ICD-10 - E11.65) [employer] Other Chief complaint+Reason for visit Narrative* Chief Complaint DMN f/u-METER Reason for Visit BMI 37.0-37.9, adult Dietary counseling and surveillance Hyperlipemia Hypertension Hypertriglyceridemia Hypothyroidism Type 2 diabetes mellitus Type 2 diabetes mellitus with hyperglycemia Vitamin D deficiency [facility] Work Phone: [facility] [employer] Other Evaluation noteNo assessment information available [facility] Work Phone: Evaluation note* Diagnosis Onset Date Resolution Status Type 2 diabetes mellitus acu te [facility] Work Phone: Evaluation note* Diagnosis Onset Date Resolution Status BMI 37.0-37.9, adult acute Dietary counseling and surveillance acute Hyperlipemia acute Hypertension acute Hypertriglyceridemia acute Hypothyroidism acute Type 2 diabetes mellitus acu te Type 2 diabetes mellitus with hyperglycemia acute Vitamin D deficiency acute [facility] Work Phone: Evaluation note* Diagnosis Onset [...] D deficiency acute Nathanael h 2024 8:21am [facility] Work Phone: Evaluation note* Diagnosis Onset [...] D deficiency acute April 18, 2025 8:05am [facility] Work Phone: History general Narrative - Reported* Type Description Date Medical History Hypothyroidism Medical History high blood pressure Medical History high triglycerides Surgical History tonsillectomy 1966 Surgical History exploratory lap 2020 Surgical History cardiac stent 2020 Hospitalization History Abd/ chest pain 2020 [facility] [employer] Other Rebszy for referral (narrative)No reason for referral information [facility]Mar[facility] Work Phone: Reason for visit NarrativeDM, DISCUSS YEARLY DIABETIC EYE EXAMS, UMIC TODAY, NEEDS FOOT CHECK, Self Referral Type [facility] [employer] Other Rebndi for visit NarrativeDM, DISCUSS YEARLY DIABETIC EYE EXAMS, Self Referral Type [facility] [employer] Other Summary Purpose Family History Relationship Condition [...] section and content) DATE CREATED AUTHOR 01/01/2022 [facility] DATE CREATED AUTHOR AUTHOR'S ORGANIZ ATION 03/01/2023 [facility] DATE CREATED AUTHOR AUTHOR'S ORGANIZ ATION 12/18/2023 [facility] DATE CREATED AUTHOR AUTHOR'S ORGANIZ ATION 03/16/2024 [facility] DATE CREATED AUTHOR AUTHOR'S ORGANIZ ATION 11/16/2024 [facility] REASON FOR VISIT (unrecogniz ed section [...] 20, 2024 End: December 20, 2024 Belkis Rsoas APRN Attending Provider Active Start: December 20, [...] BE BASED ON THE PRIMARY CLINICAL RECORDS. [employer] provides no warranty or guarantee of the accuracy or completeness of information in this document.
== END 2025-05-17 10:50 | disposition home or self-care (01) ==
LOC: LAB 10:49
PROVIDERS: PCP Family Medicine; Visit Provider Family Medicine
DX: R73.09 Other abnormal glucose (principal); I10 Essential (primary) hypertension; N52.9 Male erectile dysfunction, unspecified; E00.9 Congenital iodine-deficiency syndrome, unspecified; E78.5 Hyperlipidemia, unspecified; Z12.12 Encounter for screening for malignant neoplasm of rectum; R53.83 Other fatigue; Z12.5 Encounter for screening for malignant neoplasm of prostate
CPT/HCPCS: G0328

== ENCOUNTER 2025-10-17 08:01 | Outpatient (OUT) | payer MEDICARE, OTHER, SELFPAY ==
--- OUTSIDE RECORDS SUMMARY | 2025-10-17 08:05 | XMS_ITS | Patient Health Record ---
Author Organization The [facility] in [place] Address [address] [place] [address] Care Team Providers Care Publishing Agent Name Role Phone Aakash Dye Primary Care Provider [phone] Allergies No Known Allergies Results Component Value Reference Range Notes GLYCOHEMOGLOBIN A1C Reviewed date:05/17/2025 08:07:28 AM Interpretation: Performing Lab: Notes/Report: [facility] , Glycohemoglobin A1C 5.9 4.5-6.2 % ADA RECOMMENDED LIMIT 4.0 - 6.0 > 7.0 ACTION SUGGESTED ADA THERAPEUTIC TARGET < 7.0 Estimated Average Glucose 123 Performing Lab:see note - [facility] LBOccult Blood* Reviewed date:05/17/2025 02:49:03 PM Interpretation: Performing Lab: Notes/Report: [facility] ,Occult BloodNegativePerforming Lab:see note - [facility] LBURIC ACID SERUM Reviewed date:05/16/2025 01:08:12 PM Interpretation: Performing Lab: Notes/Report: [facility] ,Uric Acid6.33.5-7.2 mg/dLPerforming Lab:see note - [facility] LB TSH Reviewed date:05/16/2025 01:08:12 PM Interpretation: Performing Lab: Notes/Report: [facility] ,Thyroid Stimulating Hormone2.8570.358-3.740 uIU/mLPerforming Lab:see note - [facility] LBT4 Reviewed date:05/16/2025 01:08:12 PM Interpretation: Performing Lab: Notes/Report: [facility] ,T4 Thyroxine7.704.50-12.10 ug/dLPerforming Lab:see noteML - [facility] LBPSA SCREENING Reviewed date:05/16/2025 04:07:34 PM Interpretation: Performing Lab: Notes/Report: [facility] ,Prostate Specific Antigen Scrn0.72<=4.00 ng/mLPerforming Lab:see note - [facility] LBPROF 14(COMP METB) Reviewed date:05/16/2025 01:08:12 PM Interpretation: Performing Lab: Notes/Report: [facility] ,Cuoree661764-079 mmol/LPotassium3.83.5-5.1 mmol/QJmuglwes69448-536 mmol/LCarbon Qbiysmo83.421.0-32.0 mmol/LAnion Gap15.9Cnxomyx56360-185 mg/dLBlood Urea Ujzqookm10.07.0-18.0 mg/dLCreatinine0.870.70-1.30 mg/dLEstimated GFR ( Dorothy>60>=60 mL/min/1.73m 2Estimated GFR (Non- Niki>60>=60 mL/min/1.73m 2BUN Creatinine Ratio19.0Uilsvmx0.28.5-10.1 mg/dLBilirubin Total0.90.2-1.0 mg/dL Aspartate Amino Larqndjjhbs4635-48 U/LAlanine Pfzyojpuowwpqzkc7263-81 U/L Alkaline Uojfvcgmcii4670-675 U/LTotal Protein7.46.4-8.2 g/dLAlbumin Level4.03.4- 5.0 g/dLGlobulin3.4Albumin Globulin Ratio1.2Performing Lab:see noteML - [facility] LBLIPID PROFILE Reviewed date:05/16/2025 01:08:12 PM Interpretation: Performing Lab: Notes/Report: [facility] ,Qmakdaaagxgqe345<=150 mg/bGXwggvythvxw385<=200 mg/dLHDL Wzsnhiitbjm5972-66 mg/dL > or =60 mg/dl - LOW CARDIOVASCULAR RISK <40 mg/dl - HIGH CARDIOVASCULAR RISK LDL Cholesterol Simqsnpqxw05.0 <100 mg/dl OPTIMAL 100-129 mg/dl NEAR OR ABOVE OPTIMAL 160-189 mg/dl HIGH 130-159 mg/dl BORDERLINE HIGH >190 mg/dl VERY HIGH VLDL GILUFIOGYLW84.2Chol HDL Ratio2.9 3.3 - 4.4 LOW RISK >11.0 HIGH RISK 4.4 - 7.1 AVERAGE RISK 7.1 - 11.0 MODERATE RISK Performing Lab:see noteML - [facility] LBFREE T3 Reviewed date:05/16/2025 01:08:12 PM Interpretation: Performing Lab: Notes/Report: [facility] ,Free T33.172.18-3.98 pg/mLPerforming Lab:see noteML - [facility] LB CBC AUTO DIFF Reviewed date:05/16/2025 01:08:12 PM Interpretation: Performing Lab: Notes/Report: [facility] ,White Blood Count8.14.0-11.0 10 3/uLRed Blood Count6.404.70-6.10 10 6/uL Jdclenvqfn25.214.0-18.0 g/nPDxdnzdwnup55.042.0-54.0 %Mean Corpuscular Bhhtfh73.6 80.0-94.0 fLMean Corpuscular Orkhbscmeg99.325.9-34.0 pgMean Corpuscular HGB Conc 33.129.9-35.2 g/dLRed Cell Distribution Width17.211.0-15.0 %Platelet Oqhqb027 150-450 10 3/uLMean Platelet Sffsfn51.49.5-13.5 fLNeutrophils Percent Auto63.9 43.0-75.0 %Lymphocytes Percent Auto26.820.5-60.0 %Monocytes Percent Auto6.81.7- 12.0 %Eosinophils Percent Auto1.70.9-7.0 %Basophils Percent Auto0.60.2-2.0 % Immature Granulocytes Pct Auto0.20.0-0.5 %Neutrophils Absolute Auto5.21.4-6.5 10 3/uLLymphocytes Absolute Auto2.21.2-3.8 10 3/uLMonocytes Absolute Auto0.60.3-0.8 10 3/uLEosinophils Absolute Auto0.10.0-0.7 10 3/uLBasophils Absolute Auto0.10.0- 0.1 10 3/uLImmature Granulocytes Abs Auto0.020.00-0.03 10 3/uLPerforming Lab:see noteML - [facility] LB Reason For Referral No Information Medications Medication SIG (Take, Route, Frequency, Duration) Notes Start Date End Date Status Liothyronine Sodium 5 MCG TAKE 1 TABLET BY MOUTH EVERY DAY ON EMPTY STOMACH; Duration: 90 days ActiveLancets 33G -use one lancet as directed Dx: E11.9 Once a day; Duration: 90 days09/01/2023ctiveLosartan Potassium 50 MG1 tablet Orally Once a dayActive Viagra 100 MG1 tablet as needed Orally Once a day; Duration: 30 days05/11/2025 ActiveChlorthalidone 25 MG1 tablet in the morning with food Orally Once a day ActiveCarvedilol 25 MG1 tablet with food Orally Twice a dayActiveOneTouch Ultra TestActiveJardiance 25 MG1 tablet Orally Once a dayActiveVitamin D (Ergocalciferol) 50 MCG (2000 UT)1 capsule Orally Once a day; Duration: 90 days 09/21/2024ctiveFish OilActiveTriamcinolone Acetonide 0.1 %APPLY 1 APPLICATION EXTERNALLY TWICE A DAY; Duration: 60PRNActiveSimvastatin 20 MGTAKE 1 TABLET BY MOUTH EVERY DAY IN THE EVENING 30 DAYS; Duration: 90ActivemetFORMIN HCl 500 MG1 tablet with a meal Orally BID; Duration: 90 daysActiveAspirin 81 MG1 tablet Orally Once a dayActiveOneTouch Delica Plus Bsvxov93W -1 lancet to test glucose once daily; Duration: 90 daysActiveMounjaro 2.5 MG/0.5MLInject 2.5mg Subcutaneous once vojjij305ActiveLevothyroxine Sodium 25 MCGTAKE 1 TABLET BY MOUTH EVERY DAY IN THE MORNING ON EMPTY STOMACH FOR 90 DAYS; Duration: 90 Active Social History Tobacco Use: Social History Observation Description Date Details (start date - stop date) Former Smoker NA - NA Tobacco Use/Smoking Question Answer Notes Patient is a former smoker How long has it been since you last smoked?> 10 yearsAlcohol Screen (Audit-C) Question Answer Notes Did you have a drink containing alcohol in the p ast year? No Mfktwt6NwtmvcauuybqitVqgiaxfk Problems Problem Type SNOMED Code ICD Code Onset Dates Problem Status W/U Status Risk Notes Problem Hyperlipidemia (19216663) Hyperlipidemia, unspecified (E78.5) ActiveconfirmedProblemAtherosclerotic heart disease of [place] coronary artery without angina pectoris (287793072508278)Atherosclerotic heart disease of [place] coronary artery without angina pectoris (I25.10)ActiveconfirmedProblemAdult health examination (903805855)Encounter for general adult medical examination without abnormal findings (Z00.00)ActiveconfirmedProblemChest pain (23226838) Chest pain (R07.9)ActiveconfirmedProblemHypertension (12168424)Hypertension (I10)ActiveconfirmedProblemHypothyroidism (45521544)Hypothyroidism (E03.9)Active confirmedProblemProteinuria (94040247)Proteinuria (R80.9)ActiveconfirmedProblem Dyspnea (911929746)Dyspnea (R06.00)ActiveconfirmedProblemEczema (04960344)Eczema (L30.9)ActiveconfirmedProblemPeptic ulcer (47386800)Peptic ulcer (K27.9)Active confirmedProblemHypertriglyceridemia (868202502)Hypertriglyceridemia (E78.1) ActiveconfirmedProblemFolliculitis (94611733)Folliculitis (L73.9)Activeconfirmed ProblemAcute sinusitis (20134531)Acute sinus infection (J01.90)Activeconfirmed ProblemVitamin D deficiency (90990504)Low vitamin D level (E55.9)Activeconfirmed ProblemErectile dysfunction (disorder) (401590289)Impotence (N52.9)Active confirmedProblemNevus (0143350221)Nevus (D22.9)ActiveconfirmedProblem Diaphragmatic hernia (55519013)Diaphragmatic hernia (K44.9)Activeconfirmed ProblemBenign prostatic hyperplasia (057027295)Benign prostate hyperplasia (N40.0)ActiveconfirmedProblemType II diabetes mellitus without complication (760913194)Diabetes mellitus type 2, diet-controlled (E11.9)Activeconfirmed ProblemDisease caused by Severe acute respiratory syndrome coronavirus 2 (disorder) (509593443)COVID-19 virus infection (U07.1)Activeconfirmed Vital Signs Blood pressure diastolic 84 mm Hg 05/11/2025 Swohth83 in07/23/2025Blood pressure yiakanyb900 mm Hg05/11/20252901Eebvdm426.6 lbs 05/11/2025BMI30.46 kg/m205/11/2025 Encounters Encounter Location Date Provider Diagnosis [facility] [address] [place] [address] 05/04/2025 Aakash [facility] [place] [address] 05/16/2025[facility] [place] [address]/Doug [facility] [facility] [place] [address]/02/2025[facility] [place] [address]/Doug HoyHypertension I10 ; Hypothyroidism E03.9 ; Impotence N52.9 and Diabetes mellitus type 2, diet-controlled E11.9 Assessments Encounter Date Diagnosis (ICD Code) Assessment Notes Treatment Notes Treatment Clinical Notes Section Notes 05/11/2025 Hypertension (ICD-10 - I10) 05/11/2025Hypothyroidism (ICD-10 - E03.9)05/11/2025Impotence (ICD-10 - N52.9) 05/11/2025Diabetes mellitus type 2, diet-controlled (ICD-10 - E11.9) Plan Of Treatment Pending Test Test Name Order Date CMP (COMPLETE METABOLIC PANEL) HEMOGLOBIN A1C (GLYCO) 05/11/2025 INSULIN, TOTAL 02/12/2023 LIPID PANEL (CHOL/TRIG/HDL/LDL) 05/11/20 URIC ACID 05/11/2025 T3 FREE, T4 FREE and TSH 04/08/2024 FECAL OCCULT BLOOD 04/08/2024 STOOL OCCULT BLOOD 05/11/2025 STOOL OCCULT BLOOD 02/12/2023 CBC AUTO DIFF 04/08/2024 GLYCOHEMOGLOBIN A1C 04/08/2024 LIPID PROFILE 04/08/2024 LIVER PROFILE 09/20/2024 THYROID PANEL (T4/TSH/FREE T3) Free PSA 04/08/2024 PSA, SCREENING 05/11/2025 Vitamin D 09/20/2024 Lipid Panel 09/20/2024 CMP (COMP MET WILDE) w/eGFR CKD-EPI 2024 CBC WITH DIFF 05/11/2025 Insurance Providers Payer Name Payer Address Payer Phone Subscriber Number Group Number Insured Name Patient Relationship to Insured Coverage Start Date Coverage End Date MEDICARE RAILROAD [address] [address] [place] [id number] Dino Mcknight - [facility] the [facility] [address] [address] [place], [place] [id number], SusannSpouse - patient is the spouse of the insured Medications Administered Medication Instructions Date of Administration Dosage Notes Dexamethasone, 4mg/mL hh43ugQkhvgws-7929/25/2024120 mg120 Medical (General) History Medical History History ICD Code Peptic ulcer K27.9 Diaphragmatic hernia K44.9 Chest pain R07.9 Hypothyroidism E03.9 Dyspnea R06.00 COVID-19 virus infection U07.1 Hypertriglyceridemia E78.1 Diabetes mellitus type 2, diet-controlle d E11.9 Benign prostate hyperplasia N40.0 Impotence N52.9 Hypertension I10 Proteinuria R80.9 Surgical History Surgery Date(Month/Year) Lithotripsy AngioplastyPharyngeal Peritoneal TearSucutaneous Mass, Rt Abdominal Wall- ExcisionStent PlacementHospitalization History Reason Date(Month/Year) Stent Placement 2021
--- OUTSIDE RECORDS SUMMARY | 2025-10-17 08:06 | XMS_ITS | Clinical Summary ---
Author Organization [facility] Address [address] [place] [address] Care Team Providers Care Saw Repairer Name Role Phone Jean Carlos Dye MD Primary Care Provider [phone] Allergies No known active allergies Medications MedicationSigDispense QuantityRefillsLast FilledStart DateEnd DateStatus aspirin 81 mg chewable tablet Chew 1 tablet every day by oral route.Active levothyroxine (Synthroid, Levoxyl) 25 mcg tablet Take 1 tablet by mouth in the morning.Active metFORMIN (Glucophage) 500 mg tablet Take 1 tablet by mouth in the morning and at bedtime.Active atorvastatin (Lipitor) 80 mg tablet Indications:Coronary artery disease due to lipid rich plaqueTake 1 tablet (80 mg) by mouth in the morning. 90 tablet ctive icosapent ethyL (Vascepa) 1 gram capsule Indications:Coronary artery disease due to lipid rich plaqueTake 2 capsules (2 g) by mouth with breakfast and with evening meal. 360 capsule ctive Additional Information Patient not taking.Reported on 11/15/2024 Jardiance 25 mg 25 mg 1 (one) time each day.10/03/2023ctive ergocalciferol (Vitamin D-2) 50 MCG (2000 UT) capsule capsule 1 capsule 1 (one) time each day at the same time.09/21/2024ctive simvastatin (Zocor) 20 mg tablet 1 (one) time each day at the same time.09/21/2024ctive chlorthalidone (Hygroton) 25 mg tablet Indications:Essential hypertensionTake 1 tablet (25 mg) by mouth in the morning. 90 tablet ctive losartan (Cozaar) 50 mg tablet Indications:Essential hypertension,Coronary artery disease involving southern [place] coronary artery of [place] heart without angina pectorisTake 1 tablet (50 mg) by mouth in the morning. 90 tablet /ctive carvedilol (Coreg) 25 mg tablet Indications:Essential hypertensionTake 1 tablet (25 mg) by mouth with breakfast and with evening meal. 180 tablet /ctive Active Problems ProblemNoted DateDiagnosed DateVitamin D hyxlmyxqgd99/27/2025History of renal cwxsfci718341Zrptifceelmcnnpg97/22/202401/22/2024Coronary artery disease involving [place] coronary artery of [place] heart without angina pectoris 08/28/2022 Overview (11/11/2022): [...] 6 months or earlier if needed Essential kdqbkaogidmk58/09/2022 Overview (11/11/2022): Images from the original note [...] to call office for any concerns Mixed glrwsqfuprebev13/09/2022 Overview (11/11/2022): Images from the original note were not included. Assessment & Plan (11/11/2022 12:05 PM EST): Continue statin Assessment & Plan (08/28/2022 10:30 AM EST): Continue lipitor and vascepa Lipid levels are much improved since October 2021 Diabetes mellitus type II, non insulin lavrybtsq00/09/2022 Assessment & Plan (08/28/2022 10:31 AM EST): Follow-up with PCP for management, Obesity (BMI 35.0-39.9 without comorbidity)08/28/2022 Assessment & Plan (08/28/2022 10:31 AM EST): Patient is following heart healthy diet, states he is exercising 3 to 4 days a week and attempting to lose weight Presence of drug coated stent in left circumflex coronary ghgxzf7012/26/2021 Assessment & Plan (08/28/2022 10:31 AM EST): Continue Plavix for at least 1 year which will be in December of next year- 2022, lifelong aspirin Denies any bleeding tendencies or concerns Acute dajpvkquwo62enign prostatic czhizqeajlm79/14/2022 4Chest pain2602Eghlwdjoxybfag22/14/202201/22/2024 COVID-190iaphragmatic ayfjky93yspnea EpididymitisHypothyroidism12/03/2021 11/10/20236455Xnhszla36roteinuriarimary erectile ehzfvxosmbg54 Family History Medical HistoryRelationNameCommentsCABGFatherCoronary artery diseaseFatherAtrial fibrillationMotherCardiomyopathyMotherCoronary artery diseaseMother HyperlipidemiaMotherHypertensionMotherStrokeMotherpacemakerMotherRelationName StatusCommentsFatherMother Social History Tobacco UseTypesPacks/DayYears UsedDateSmoking Tobacco: NeverSmokeless Tobacco: Never Tobacco Cessation:Counseling Given: Not Answered Alcohol UseStandard Drinks/WeekCommentsNot Currently0 (1 standard drink = 0.6 oz pure alcohol)UT Safety & EnvironmentAnswerDate RecordedFear of Current or Ex-PartnerNot on file12/11/2023Emotionally AbusedNot on file12/11/2023hysically AbusedNot on file12/11/2023Sexually AbusedNot on file12/11/2023hysically or Sexually AbusedNot on file12/11/2023Sex and Gender InformationValueDate Recorded Sex Assigned at BirthNot on fileLegal ShcGznu7504/18/2022 12:30 AM EDTGender IdentityNot on fileSexual OrientationNot on file Last Filed Vital Signs Vital SignReadingTime TakenCommentsBlood Cwxqubri974/8811/15/2024 10:40 AM EST Rlroi414911/15/2024 10:40 AM TKOKuoeotqnfyi66.8 ??C (98.3 ??F)12/12/2021 3:06 PM ESTRespiratory Rate--Oxygen Nztuciimts23%11/15/2024 10:40 AM ESTInhaled Oxygen Concentration--Xjryij764 kg (258 lb)11/15/2024 10:40 AM KFLJicrxv985 cm (6' 2 ) 11/15/2024 10:40 AM ESTBody Mass Index33.13011/15/2024 10:40 AM EST Plan of Treatment Health MaintenanceDue DateLast DoneCommentsCT Jvnqcapjujza1958Colonoscopy 1958Colorectal Cancer Piqqwseuo1958Diabetes: Hemoglobin A1C 1958FIT-DNA1958FIT1958FOBT1958Medicare Annual Wellness (AWV)1960 1955Qjarckspdsdle1958Diabetes: Retinopathy Thoebftkg33/23/1968 Depression Jvpaouxog20/23/1970Diabetes: Urine Protein Hnmbwryqn03/23/1977 Pneumococcal Vaccine: 50+ Years (1 of 2 - PCV)1977Adult Cqwrpyw2604/11/1980 Zoster Vaccines (1 of 2)2008Fall Risk Gjbkhzypu65/23/2023COVID-19 Vaccine (3 - season)505/12/2020, 01/29/2021Influenza Vaccine (#1) 2025HIB VaccinesAged OutNo longer eligible based on patient's age to complete this topicHPV VaccinesAged OutNo longer eligible based on patient's age to complete this topicIPV VaccinesAged OutNo longer eligible based on patient's age to complete this topicMeningococcal B VaccineAged OutNo longer eligible based on patient's age to complete this topicMeningococcal VaccineAged OutNo longer eligible based on patient's age to complete this topicRotavirus Vaccines Aged OutNo longer eligible based on patient's age to complete this topic Insurance * Guarantor: Anthony McknightAccount TypeRelation to PatientDate of BirthPhone Billing AddressPersonal/PdotrvWciu[address] [address] [place] [address] [place] [address] Care Teams Team MemberRelationshipSpecialtyStart Date Jean Carlos Dye MD [address] [place] [place] [address] PCP - Vdnumpl71/8/22
--- OUTSIDE RECORDS SUMMARY | 2025-10-17 08:11 | XMS_ITS | CCD ---
Author Organization [facility] Care Team Providers Care Chucker Name Role Phone AKOSUA SAUCEDO Attending Unavailable ELTAHAWYAKOSUA Admitting Unavailable RAYA DYE Referring Unavailable RAYA [...] Unavailable Raya Dye MD Primary Care Provider [phone] Belkis Rosas APRN Attending Provider Medications Current Medications MedicationDrug Class(es)DatesSig (Normalized)Sig (Original)aspirin 81 mg chewable tablet (9 sources)Platelet Aggregation Inhibitor, Nonsteroidal Anti-inflammatory Drug Start: 48-83-9790wdpx 1 tablet by mouth once dailyAspirin 81 mg tablet,chewable Active 81 MG PO Daily December 10, 2023 1:00am Complies with drug therapytake 1 tablet by mouth every twenty-four hoursAspirin 81 81 MG 1 tablet Orally Once a day Activetake 1 tablet by mouth once dailyAspirin 81 81 MG 1 tablet Orally Once a day ActiveBlood-Glucose Meter (Onetouch Ultra2 Meter) misc (3 sources)Start: 44-56-3861Xrspl-Glucose Meter (Onetouch Ultra2 Meter) misc Active 0 .Route 1 December 22, 2024 8:46am As directed test blood sugar once daily Start: 12-20-2024 End: 73-31-5595Pgggq-Glucose Meter (Onetouch Ultra2 Meter) misc Discontinued 0 .Route 1 December 20, 2024 10:49am December 22, 2024 8:46am As directed test blood sugar three times dailyStart: 12-20-2024 End: 08-75-9415Rxjoy-Glucose Meter (Onetouch Ultra2 Meter) misc Discontinued 0 .Route December 20, 2024 1:00am 2024 10:57am As directedcarvedilol 25 mg oral tablet (9 sources)alpha-Adrenergic Adriano, beta-Adrenergic BlockerStart: 12-10-2023 take 1 tablet by mouth twice dailyCarvedilol 25 mg tablet Active 25 MG PO Twice daily December 10, 2023 1:00am Complies with drug therapytake 1 tablet by mouth every twelve hoursCarvedilol 25 MG 1 tablet with food Orally Twice a day Activecholecalciferol 0.05 mg oral capsule (2 sources)Vitamin DStart: 17-29-8543lxag 1 capsule by mouth once daily Cholecalciferol (Vitamin D3) 50 mcg (2,000 unit) capsule Active 50 MCG PO Daily December 20, 2024 1:00am Complies with drug therapyempagliflozin 25 mg oral tablet (18 sources)Sodium-Glucose Cotransporter 2 InhibitorStart: 59-82-1055mmph 1 tablet by mouth once dailyEmpagliflozin (Jardiance) 25 mg tablet Active 0 .ROUTE .COMPLEX 90 June 29, 2024 5:08pm TAKE1 TABLET BY MOUTH EVERY DAY Complies with drug therapyStart: 12-10-2023 End: 88-65-1490tssu 1 tablet by mouth once dailyEmpagliflozin (Jardiance) 25 mg tablet Discontinued 25 MG PO Daily 90 March 17, 2024 8:28am June 29, 2024 5:08pmStart: 20-42-9440bloz 1 tablet by mouth every twenty-four hours Jardiance 10 MG 1 tablet Orally Once a day for 14 days samples May, ActiveStart: 23-63-1678hgcm 1 tablet by mouth every twenty-four hoursJardiance 25 MG 1 tablet Orally Once a day for 30 days Started on samples May, Activelevothyroxine sodium 0.025 mg oral tablet (9 sources)l-ThyroxineStart: 97-58-1376miqq 1 tablet by mouth once daily Levothyroxine 25 mcg tablet Active 25 MCG PO Daily December 10, 2023 1:00am Complies with drug therapytake 1 tablet by mouth once daily in the morning Levothyroxine Sodium 25 MCG 1 tablet in the morning on an empty stomach Orally Once a day Activetake 1 tablet by mouth once daily in the morningLevothyroxine Sodium 25 MCG 1 tablet in the morning on an empty stomach Orally Once a day Activeliothyronine sodium 0.005 mg oral tablet (9 sources)l-TriiodothyronineStart: 16-22-7828giyb 1 tablet by mouth once daily Liothyronine 5 mcg tablet Active 5 MCG PO Daily December 10, 2023 1:00am Complies with drug therapytake 1 tablet by mouth every twenty-four hours Liothyronine Sodium 5 MCG 1 tablet on an empty stomach Orally Once a day Active take 1 tablet by mouth every twenty-four hoursLiothyronine Sodium 5 MCG 1 tablet on an empty stomach Orally Once a day Activelosartan potassium 50 mg oral tablet (9 sources)Angiotensin 2 Receptor BlockerStart: 55-11-8750bapl 1 tablet by mouth once dailyLosartan 50 mg tablet Active 50 MG PO Daily December 10, 2023 1:00am Complies with drug therapytake 1 tablet by mouth every twenty-four hoursLosartan Potassium 50 MG 1 tablet Orally Once a day ActivemetFORMIN hydrochloride 500 mg oral tablet (14 sources)BiguanideStart: 66-77-4584aoyy 1 tablet by mouth twice daily Metformin 500 mg tablet Active 0 .ROUTE .COMPLEX 180 August 11, 2024 12:56pm TAKE 1 TABLET BY MOUTH TWICE A DAY Complies with drug therapyStart: 12-10-2023 End: 23-43-9751pzmu 1 tablet by mouth twice dailyMetformin 500 mg tablet Discontinued 500 MG PO Twice daily 180 90 March 17, 2024 8:29am August 11, 2024 12:57pmtake 1 tablet by mouth every twelve hoursmetFORMIN HCl 500 MG 1 tablet with a meal Orally bid ActiveOmega 3-Cij-Kiv-Fish Oil (Fish Oil) 1,000 (120-180) mg capsule (2 sources)Start: 21-86-1467emfk 2 capsules by mouth once dailyOmega 4-Tqu-Grb-Fish Oil (Fish Oil) 1,000 (120-180) mg capsule Active 2 CAP PO Daily December 20, 2024 1:00am Complies with drug therapyStart: 15-17-0744nxha 2 capsules by mouth once dailyOmega 8-Dol-Kll-Fish Oil (Fish Oil) 1,000 (120-180) mg capsule Active 2 CAP PO Daily December 20, 2024 12:00amsimvastatin 20 mg oral tablet (2 sources)HMG-CoA Reductase InhibitorStart: 21-98-5120mubt 1 tablet by mouth once dailySimvastatin 20 mg tablet Active 20 MG PO Daily December 20, 2024 1:00am Complies with drug therapyTirzepatide (3 sources)Start: 38-24-0737Cvopbtabnyv (Mounjaro) 2.5 mg/0.5 mL pen injector Active 2.5 MG SUBCUT every week 6 April 1858:46am Complies with drug therapyStart: 09-15-2024 End: 92-42-6164Lmbhepvghcl (Mounjaro) 2.5 mg/0.5 mL pen injector Discontinued 2.5 MG SUBCUT every week 2 September 15, 2024 1:00am April 18, 2025 8:47am will have voucher for 1st 4 weeksStart: 35-80-6619Ekltftzoneh (Mounjaro) 2.5 mg/0.5 mL pen injector Active 2.5 MG SUBCUT every week 2 September 15, 2024 12:00am will have voucher for 1st 4 weeks Completed/Discontinued Medications MedicationDrug Class(es)DatesSig (Normalized)Sig (Original)blood sugar diagnostic (Blood Glucose Test) (5 sources)Start: 12-10-2023 End: 91-49-9387hevob sugar diagnostic (Blood Glucose Test) Discontinued .Route December 10, 2023 1:00am June 28, 2024 12:35pmStart: 12-10-2023 End: 48-76-0171ezdoe sugar diagnostic (Blood Glucose Test) Discontinued .Route December 10, 2023 12:00am June 28, 2024 11:35amStart: 74-18-4276pbrda sugar diagnostic (Blood Glucose Test) Active .Route December 10, 2023 1:00am Start: 06-79-8768ljhtn sugar diagnostic (Blood Glucose Test) Active .Route December 10, 2023 12:00amStart: 06-89-6682lcknt sugar diagnostic (Blood Glucose Test) Active .ROUTE December 10, 2023 12:00am Problems Problem ClassificationProblemDateDocumented DateEpisodic/Chronic Administrative/social admission (10 sources)Dietary counseling and surveillance; Translations: [Patient encounter status]EpisodicCoronary atherosclerosis and other heart disease (6 sources)Atherosclerotic heart disease of [place] coronary artery without angina pectoris; Translations: [ASHD YUROK CA W/O ANGINA PECTORIS]Onset: 60-37-1532WlabbvlYmwhstkg mellitus with complications (16 sources)Hyperglycemia due to type 2 diabetes mellitus; Translations: [Type 2 diabetes mellitus with hyperglycemia]Onset: 64-48-4584KddrfkuOorzewrr mellitus without complication (12 sources)Type 2 diabetes mellitus; Translations: [Type 2 diabetes mellitus without complications]81-81-2187YuqjdpyOixufxaoi of lipid metabolism (20 sources)Hyperlipidemia, unspecified; Translations: [Hyperlipidemia]Onset: 65-66-0448IvwbtnnRlwkkwonm hypertension (19 sources)Essential (primary) hypertension; Translations: [Essential hypertension]Onset: 34-51-5821DretsysNovedonmxba deficiencies (14 sources)Vitamin D deficiency; Translations: [Vitamin D deficiency, unspecified]ChronicOther nutritional; endocrine; and metabolic disorders (3 sources)Obese class II; Translations: [Body mass index (BMI) 37.0-37.9, adult]ChronicOther nutritional; endocrine; and metabolic disorders (4 sources)Body mass index (BMI) 37.0-37.9, adult; Translations: [Body Mass Index 37.0-37.9, adult]ChronicOther nutritional; endocrine; and metabolic disorders (6 sources)Body mass index 30+ - obesity; Translations: [Body mass index (BMI) 37.0-37.9, adult]82-30-5437KyajdxcRiump screening for suspected conditions (not mental disorders or infectious disease) (1 source)Encounter for screening for malignant neoplasm of prostate; Translations: [ENC SCREEN MALIG NEOPLASM PROSTATE]Onset: 57-66-8864Ocmvqmgc Thyroid disorders (8 sources)Hypothyroidism; Translations: [Hypothyroidism, unspecified]12-10-2023 Chronic Results Test NameValueInterpretationReference RangeFacilityOffice Visiton 11-15-2024 Follow-up [id number] Tiffanie Mcknight 1960 M Date Provider Department Center 11/15/2024 [facility]-AKOSUA SAUCEDO [facility] Family History Problem Relation Age of Onset Atrial fibrillation Mother Other Mother Hypertension Mother Cardiomyopathy Mother Coronary artery disease Mother Stroke Mother Hyperlipidemia Mother Coronary artery disease Father Other Father Family Status - Relation Status Age at Mother Father Level of Service:45400 OR OFFICE/OUTPATIENT ESTABLISHED LOW [facility] HamiltonProvider Letteron [phone] Letter March 16, 2024 TIFFANIE MCKNIGHT [address] [address] : 1960 Dear Mr. Mcknight, We have been trying to reach you with no success regarding a referral from Dr Dye. It is important that you return our call upon receiving this letter. Also, at the time of your call, please provide us with your current information. Thank you for your prompt attention to this matter. Sincerely, [facility] [phone] HospitalPhysician Referralon 03-01-2024 Physician [id number]#1.00TIFFMercy HospitalPhysician Referralon 62-56-9916Dozxaizkl Referral [id number]#1.00TIFFNormalWaldemar The [facility] Pratt HospitalA1C HEMOGLOBINon 90-20-3063LfF6x (Bld) [Mass fraction]6.9 %[employer] Other Glucose - FINGER STICKon 00-69-1799Muixdvg [Mass/Vol] 240 mg/dLMagnolia [employer]ed [employer] Other HbA1c (Bld) [Mass fraction]on 00-73-9963X4U HEMOGLOBIN [employer] Other Glucose - FINGER STICKon 33-78-7265Ljngpru [Mass/Vol] 151 mg/dLMagnolia [employer]ed [employer] Other microAlb Creat Ratio,Uon 95-01-6890Oesmzrr DL <= 20 mg/L (U) [Mass/Vol]1.7372102 mg/dLNormal0.0-1.8 mg/dLMagnolia [employer]ed [employer] Other Albumin/Creatinine DL <= 20 mg/L (U) [Mass ratio] 20.242472 mg/gNormal0.0-30.0 mg/gNorth [employer] Other Creatinine (U) [Mass/Vol]65.1740370 mg/lZEhxy36.0-26.0 mg/dLMagnolia [employer] Other Albumin DL <= 20 mg/L (U) [Mass/Vol]1.3 mg/dLNormal 0.0-1.8[facility] HospitalComment on above:Order Comment: Reason for Exam Type 2 diabetes mellitus with hyperglycemia, without long-tePerformed By: #### URMACRERAT #### [address] [address] USACreatinine, Urine (Random)65.0 mg/dZGtpr75.0-26.0[facility] HospitalComment on above:Order Comment: Reason for Exam Type 2 diabetes mellitus with hyperglycemia, without long-tePerformed By: #### URMACRERAT #### [facility] [address] [place] [address] USAMicroalbumin/Creatinine Ratio20.0 mg/gNormal0.0-30.0 [facility] HospitalComment on above:Order Comment: Reason for Exam Type 2 diabetes mellitus with hyperglycemia, without long-teResult Comment: 30-300 mg/g indicates an increased risk for diabetic nephropathy. Greater than 300 mg/g is consistent with clinical nephropathy. (Am. J. Kidney Disease 1995, 25:107) PERFORMED BY: [facility] [address] [place] [address] PATHOLOGIST DENTAL TECHNICIAN VICK MARTE M.D.Performed By: #### URMACRERAT #### [facility] [address] [place] [address] USAOCC BLD IMMUNO SCREENon 63-45-8329IOXAYW BLOODNegative NormalNEGATIVEThe The [facility] SystemComment on above:Performed By: #### OBSCRN #### [facility] [address] [place] [address] Dr. Lauryn ChapmanINSULINon 70-78-3070Acbquat34.1 uIU/mLCritically high2.6-24.9The [facility] SystemComment on above:Performed By: #### INSULIN #### [facility] [address] [address] [address] Lauryn Boone AUTO DIFFon 29-55-8188ZUAX #0.1 103/ulNormal0.0-0.1The [facility] SystemComment on above:Performed By: #### OBSCRN #### [facility] [address] [address] [address] Lauryn ChapmanBasophils/100 WBC (Bld)0.8 %Normal0.2-2.0The [facility] Comment on above:Performed By: #### OBSCRN #### [facility] [address] [place] [address] Dr. Combs ChangEO #0.1 103/ulNormal0.0-0.7The [facility] SystemComment on above: Performed By: #### OBSCRN #### [facility] [address] [place] [address] Dr. Lauryn Villegasosinophils/100 WBC (Bld)1.9 %Normal0.9-7.0The [facility] Comment on above:Performed By: #### OBSCRN #### [facility] [address] [place] [address] Dr. Lauryn Villegasrythrocyte distribution width (RBC) [Ratio]17.4 %Critically high 11.0-15.0The [facility] SystemComment on above:Performed By: #### OBSCRN #### [facility] [address] [place] [address] Dr. Lauryn ChapmanHematocrit (Bld) [Volume fraction]49.5 %Bccjqi17.0-54.0The [facility] SystemComment on above:Performed By: #### OBSCRN #### [facility] [address] [place] [address] Dr. Lauryn ChapmanHemoglobin (Bld) [Mass/Vol]15.6 g/sQBwljqy19.0-18.0The [facility] SystemComment on above:Performed By: #### OBSCRN #### [facility] [address] [place] [address] Dr. Lauryn Ball #0.03 10e3/ulNormal0.00-0.03The [facility] SystemComment on above:Performed By: #### OBSCRN #### [facility] [address] [place] [address] Dr. Lauryn Ball %0.4 %Normal0.0-0.5The [facility] SystemComment on above: Performed By: #### OBSCRN #### [facility] [address] [place] [address] Dr. Lauryn Gonzalez #1.9 103/ulNormal1.2-3.8The [facility] SystemComment on above:Performed By: #### OBSCRN #### [facility] [address] [place] [address] Dr. Lauryn Joynermphocytes/100 WBC (Bld)25.7 %Ivvqow10.5-60.0The [facility] SystemComment on above:Performed By: #### OBSCRN #### [facility] [address] [place] [address] Dr. Lauryn ChaseUAL DIFF REQNONormalThe [facility] SystemComment on above: Performed By: #### OBSCRN #### [facility] [address] [place] [address] Dr. Lauryn Garcia (RBC) [Entitic mass]23.6 pgCritically low25.9-34.0The [facility] SystemComment on above:Performed By: #### OBSCRN #### [facility] [address] [place] [address] Dr. Lauryn Garcia (RBC) [Mass/Vol]31.5 g/yDJwxsan08.9-35.2The [facility] SystemComment on above:Performed By: #### OBSCRN #### [facility] [address] [place] [address] Dr. Lauryn Garcia (RBC) [Entitic vol]74.8 fLCritically low80.0-94.0The [facility] SystemComment on above:Performed By: #### OBSCRN #### [facility] [address] [place] [address] Dr. Lauryn Padron #0.5 103/ulNormal0.3-0.8The [facility] SystemComment on above:Performed By: #### OBSCRN #### [facility] [address] [place] [address] Dr. Lauryn Jefferyocytes/100 WBC (Bld)7.3 %Normal1.7-12.0The [facility] Comment on above:Performed By: #### OBSCRN #### [facility] [address] [place] [address] Dr. Lauryn Cruz #4.7 103/ulNormal1.4-6.5The [facility] SystemComment on above:Performed By: #### OBSCRN #### [facility] [address] [place] [address] Dr. Lauryn Grovesutrophils/100 WBC (Bld)63.9 %Shnnsc11.0-75.0Corey HospitalComment on above:Performed By: #### OBSCRN #### [facility] [address] [place] [address] Dr. Lauryn Vasquezlet mean volume (Bld) [Entitic vol]9.5 fLNormal9.5-13.5The [facility] SystemComment on above:Performed By: #### OBSCRN #### [facility] [address] [place] [address] Dr. Lauryn ChapmanPLT188 103/obNmblxi538-935Abu [facility] SystemComformerly [facility] on above: Performed By: #### OBSCRN #### [facility] [address] [place] [address] Dr. Lauryn ChapmanRBC6.62 106/ulCritically high4.70-6.10The [facility] Comment on above:Performed By: #### OBSCRN #### [facility] [address] [place] [address] Dr. Lauryn ChapmanWBC7.4 103/ulNormal4.0-11.0The [facility] SystemComformerly [facility] on above: Performed By: #### OBSCRN #### [facility] [address] [place] [address] Dr. Lauryn ChapmanDIRECT LDLon 55-79-2041Tblpjhjfswe in LDL [Mass/Vol]69 mg/dL NormalThe [facility] SystemComformerly [facility] on above:Performed By: #### TSH, LIPID, T7, CMP, DLDL, URIC #### [facility] [address] [place] [address] Dr. Lauryn ChapmanDLDL NORMALSEE BELOWNoalThGalion HospitalComment on above: Result Comment: <100 mg/dl OPTIMAL 100 - 129 mg/dl NEAR OR ABOVE OPTIMAL 130 - 159 mg/dl BORDERLINE HIGH 160 - 189 mg/dl HIGH >190 mg/dl VERY HIGHPerformed By: #### TSH, LIPID, T7, CMP, DLDL, URIC #### [facility] [address] [address] [address] Lauryn Brady THYROXINE INDEX T7on 32-05-7114JEA9.49Jswotf4.30-4.50The [facility] SystemComformerly [facility] on above:Performed By: #### OBSCRN #### [facility] [address] [address] [address] Lauryn ChapmanT3U29.0 %Critically low33.0-40.0The [facility] SystemComment on above:Performed By: #### OBSCRN #### [facility] [address] [address] [address] Lauryn ChapmanT4 [Mass/Vol]8.30 ug/dLNormal4.50-12.10The [facility] Comment on above:Performed By: #### OBSCRN #### [facility] [address] [address] [address] Lauryn ChapmanGLYCOHEMOGLOBIN A1Con 76-59-0407XEB RECOMMENDATIONSEE BELOWMetrohealth Parma Medical CenterComment on above:Result Comment: ADA RECOMMENDED LIMIT 4.0 - 6.0 ADA THERAPEUTIC TARGET < 7.0 ACTION SUGGESTED > 7.0Performed By: #### A1C #### [facility] [address] [place] [address] Dr. Lauryn ChapmanGlucose [Mass/Vol]177 mg/dLNoalThGalion HospitalComment on above:Performed By: #### A1C #### [facility] [address] [address] [address] Lauryn ChapmanHbA1c (Bld) [Mass fraction]7.8 %Critically high4.5-6.2The [facility] SystemComment on above:Performed By: #### A1C #### [facility] [address] [place] [address] Dr. Lauryn ChapmanLIPID PROFILEon 58-18-8868HUEV-HDL RATIO NORMSEE BELOWMiddletown HospitalComment on above:Result Comment: 3.3 - 4.4 LOW RISK 4.4 - 7.1 AVERAGE RISK 7.1 - 11.0 MODERATE RISK >11.0 HIGH RISKPerformed By: #### TSH, LIPID, T7, CMP, DLDL, URIC #### [facility] [address] [place] [address] Dr. Lauryn ChapmanCholesterol [Mass/Vol]186 mg/dLNormal<=200The [facility] Comment on above:Performed By: #### TSH, LIPID, T7, CMP, DLDL, URIC #### [facility] [address] [address] [address] Lauryn Lopezesterol in HDL [Mass/Vol]33 mg/dLCritically qjj34-92Erm [facility] SystemComment on above:Performed By: #### TSH, LIPID, T7, CMP, DLDL, URIC #### [facility] [address] [place] [address] Dr. Lauryn Aguilar.total/Cholesterol in HDL [Mass ratio]5.6 {ratio} NormalThe The [facility] SystemComment on above:Performed By: #### TSH, LIPID, T7, CMP, DLDL, URIC #### [facility] [address] [place] [address] Dr. Lauryn Padilla NORMAL> or = 60 mg/dl - LOW CARDIOVASCULAR RISK <40 mg/dl - HIGH CARDIOVASCULAR RISKNoMercy Health Defiance HospitalComment on above:Performed By: #### TSH, LIPID, T7, CMP, DLDL, URIC #### [facility] [address] [place] [address] Dr. Lauryn ChapmanTriglyceride [Mass/Vol]699 mg/dLCritically high<=150The [facility] SystemComment on above:Performed By: #### TSH, LIPID, T7, CMP, DLDL, URIC #### [facility] [address] [place] [address] Dr. Lauryn ChapmanVLDL VVOJ680.8 mg/dLNoMercy Health Defiance HospitalComment on above: Performed By: #### TSH, LIPID, T7, CMP, DLDL, URIC #### [facility] [address] [place] [address] Dr. Yilan ChangPROF 14(COMP METB)on 98-03-2899Urextds [Mass/Vol]3.9 g/dLNormal 3.4-5.0The [facility] SystemComment on above:Performed By: #### TSH, LIPID, T7, CMP, DLDL, URIC #### [facility] [address] [place] [address] Dr. Lauryn ChapmanAlbumin/Globulin [Mass ratio]1.0 {ratio}NormalThe [facility] SystemComment on above:Performed By: #### TSH, LIPID, T7, CMP, DLDL, URIC #### [facility] [address] [place] [address] Dr. Lauryn Sauceda [Catalytic activity/Vol]71 U/WQmaeex79-054Xbn [facility] SystemComment on above:Performed By: #### TSH, LIPID, T7, CMP, DLDL, URIC #### [facility] [address] [place] [address] Dr. Lauryn Peck [Catalytic activity/Vol]62 U/SCkvjur70-68Ycs [facility] SystemComment on above:Performed By: #### TSH, LIPID, T7, CMP, DLDL, URIC #### [facility] [address] [place] [address] Dr. Laruyn Lauren gap [Moles/Vol]14.2 mmol/LNormalThe [facility] Comment on above:Performed By: #### TSH, LIPID, T7, CMP, DLDL, URIC #### [facility] [address] [place] [address] Dr. Lauryn Bliss [Catalytic activity/Vol]30 U/RDmxfhj94-09Ncb [facility] Hospitalment on above:Performed By: #### TSH, LIPID, T7, CMP, DLDL, URIC #### [facility] [address] [place] [address] Dr. Lauryn Marianoirubin [Mass/Vol]0.6 mg/dLNormal0.2-1.0The [facility] Comment on above:Performed By: #### TSH, LIPID, T7, CMP, DLDL, URIC #### [facility] [address] [place] [address] Dr. Lauryn ChapmanCalcium [Mass/Vol]9.3 mg/dLNormal8.5-10.1The [facility] Comment on above:Performed By: #### TSH, LIPID, T7, CMP, DLDL, URIC #### [facility] [address] [address] [address] Lauryn ChapmanChloride [Moles/Vol]99 mmol/YUvjpde10-754Lrm [facility] Comment on above:Performed By: #### TSH, LIPID, T7, CMP, DLDL, URIC #### [facility] [address] [address] [address] Lauryn ChapmanCO2 [Moles/Vol]27.1 mmol/INlhnet32.0-32.0The [facility] Comment on above:Performed By: #### TSH, LIPID, T7, CMP, DLDL, URIC #### [facility] [address] [address] [address] Lauryn ChapmanCreatinine [Mass/Vol]1.06 mg/dLNormal0.70-1.30The [facility] SystemComment on above:Performed By: #### TSH, LIPID, T7, CMP, DLDL, URIC #### [facility] [address] [address] [address] Lauryn VillegasGFR-AF GUAMANIAN>60Normal>=60The [facility] SystemComment on above:Performed By: #### TSH, LIPID, T7, CMP, DLDL, URIC #### [facility] [address] [address] [address] Lauryn VillegasGFR-NON AF GUAMANIAN>60Normal>=60The [facility] SystemComment on above:Performed By: #### TSH, LIPID, T7, CMP, DLDL, URIC #### [facility] [address] [address] [address] Lauryn ChapmanGlobulin (S) [Mass/Vol]3.9 g/dLNormalThe [facility] SystemComment on above:Performed By: #### TSH, LIPID, T7, CMP, DLDL, URIC #### [facility] [address] [address] [address] Lauryn ChapmanGlucose [Mass/Vol]167 mg/dLCritically pxhf70-180Qik [facility] SystemComment on above:Performed By: #### TSH, LIPID, T7, CMP, DLDL, URIC #### [facility] [address] [place] [address] Dr. Lauryn ChapmanPotassium [Moles/Vol]4.3 mmol/LNormal3.5-5.1The [facility] Comment on above:Performed By: #### TSH, LIPID, T7, CMP, DLDL, URIC #### The [facility] [address] [place] [address] Dr. Lauryn ChapmanProtein [Mass/Vol]7.8 g/dLNormal6.4-8.2The [facility] Comment on above:Performed By: #### TSH, LIPID, T7, CMP, DLDL, URIC #### [facility] [address] [place] [address] Dr. Lauryn ChapmanSodium [Moles/Vol]136 mmol/VNdtexx116-653Hbd [facility] Comment on above:Performed By: #### TSH, LIPID, T7, CMP, DLDL, URIC #### [facility] [address] [place] [address] Dr. Lauryn ChapmanUrea nitrogen [Mass/Vol]20.0 mg/dLCritically high7.0-18.0The [facility] SystemComment on above:Performed By: #### TSH, LIPID, T7, CMP, DLDL, URIC #### [facility] [address] [place] [address] Dr. Lauryn Mcdonough nitrogen/Creatinine [Mass ratio]18.9 mg/mgNormalThe [facility] SystemComment on above:Performed By: #### TSH, LIPID, T7, CMP, DLDL, URIC #### [facility] [address] [place] [address] Dr. Lauryn Rodriges 65-98-9859NGY3.440 uIU/mLCritically high0.358-3.740The [facility] SystemComment on above:Performed By: #### OBSCRN #### [facility] [address] [address] [address] Lauryn ChapmanURIC ACID SERUMon 32-27-8169Lyjkm [Mass/Vol]9.6 mg/dLCritically high3.5-7.2The [facility] on above:Performed By: #### TSH, LIPID, T7, CMP, DLDL, URIC #### [facility] [address] [address] [address] Lauryn ChapmanPROF CHEM 8 (BAS METB)on 46-20-5801Qbgjk gap [Moles/Vol]16.1 mmol/LNormalThe [facility] SystemComment on above:Performed By: #### OBSCRN #### [facility] [address] [place] [address] Dr. Lauryn ChapmanCalcium [Mass/Vol]8.8 mg/dLNormal8.5-10.1The [facility] Comment on above:Performed By: #### OBSCRN #### [facility] [address] [address] [address] Lauryn ChapmanChloride [Moles/Vol]104 mmol/AZdncsv39-231Obd [facility] Comment on above:Performed By: #### OBSCRN #### [facility] [address] [place] [address] Dr. Lauryn ChapmanCO2 [Moles/Vol]22.4 mmol/XDsdzst54.0-32.0The [facility] Comment on above:Performed By: #### OBSCRN #### [facility] [address] [address] [address] Lauryn ChapmanCreatinine [Mass/Vol]0.79 mg/dLNormal0.70-1.30The [facility] System[facility] on above:Performed By: #### OBSCRN #### [facility] [address] [place] [address] Dr. Lauryn VillegasGFR-AF GUAMANIAN>60Normal>=60The [facility] System[facility] on above:Performed By: #### OBSCRN #### [facility] [address] [place] [address] Dr. Lauryn VillegasGFR-NON AF GUAMANIAN>60Normal>=60The [facility] System[facility] on above:Performed By: #### OBSCRN #### [facility] [address] [place] [address] Dr. Lauryn ChapmanGlucose [Mass/Vol]169 mg/dLCritically ywcs95-142Lig [facility] SystemComment on above:Performed By: #### OBSCRN #### [facility] [address] [place] [address] Dr. Lauryn ChapmanPotassium [Moles/Vol]4.5 mmol/LNormal3.5-5.1The [facility] Comment on above:Performed By: #### OBSCRN #### [facility] [address] [place] [address] Dr. Lauryn ChapmanSodium [Moles/Vol]138 mmol/NUbygbr478-798Bkr [facility] Comment on above:Performed By: #### OBSCRN #### [facility] [address] [place] [address] Dr. Lauryn ChapmanUrea nitrogen [Mass/Vol]12.0 mg/dLNormal7.0-18.0The [facility] System[facility] on above:Performed By: #### OBSCRN #### [facility] [address] [place] [address] Dr. Lauryn ChapmanUrea nitrogen/Creatinine [Mass ratio]15.2 mg/mgNormalThe [facility] SystemComment on above:Performed By: #### OBSCRN #### [facility] [address] [place] [address] Dr. Lauryn ChapmanPROF CHEM 8 (BAS METB)on 45-30-7912Dksez gap [Moles/Vol]19.7 mmol/LNormalThe [facility] SystemComment on above:Performed By: #### OBSCRN #### [facility] [address] [place] [address] Dr. Lauryn ChapmanCalcium [Mass/Vol]8.8 mg/dLNormal8.5-10.1The [facility] Comment on above:Performed By: #### OBSCRN #### [facility] [address] [address] [address] Lauryn ChapmanChloride [Moles/Vol]103 mmol/ZYptgtp09-573Qtp [facility] Comment on above:Performed By: #### OBSCRN #### [facility] [address] [address] [address] Lauryn ChapmanCO2 [Moles/Vol]20.1 mmol/LCritically low21.0-32.0The [facility] SystemComment on above:Performed By: #### OBSCRN #### [facility] [address] [address] [address] Lauryn ChapmanCreatinine [Mass/Vol]0.87 mg/dLNormal0.70-1.30The [facility] SystemComment on above:Performed By: #### OBSCRN #### [facility] [address] [place] [address] Dr. Combs ChangEGFR-AF GUAMANIAN>60Normal>=60The [facility] System[facility] on above:Performed By: #### OBSCRN #### [facility] [address] [place] [address] Dr. Lauryn VillegasGFR-NON AF GUAMANIAN>60Normal>=60The [facility] System[facility] on above:Performed By: #### OBSCRN #### [facility] [address] [address] [address] Lauryn ChapmanGlucose [Mass/Vol]170 mg/dLCritically lrkk01-707Uqp [facility] SystemComment on above:Performed By: #### OBSCRN #### [facility] [address] [address] [address] Lauryn ChapmanPotassium [Moles/Vol]4.8 mmol/LNormal3.5-5.1The [facility] Comment on above:Performed By: #### OBSCRN #### [facility] [address] [address] [address] Lauryn ChapmanSodium [Moles/Vol]138 mmol/CZfnvrq674-065Qra [facility] Comment on above:Performed By: #### OBSCRN #### [facility] [address] [address] [address] Lauryn Mcdonough nitrogen [Mass/Vol]15.0 mg/dLNormal7.0-18.0The [facility] SystemComment on above:Performed By: #### OBSCRN #### [facility] [address] [address] [address] Lauryn ChapmanUrea nitrogen/Creatinine [Mass ratio]17.2 mg/mgNoMercy Health Defiance HospitalComment on above:Performed By: #### OBSCRN #### [facility] [address] [place] [address] Dr. Lauryn MontanezID PROFILEon 44-40-4603AZJY-HDL RATIO NORMSEE [facility] HospitalComment on above:Result Comment: 3.3 - 4.4 LOW RISK 4.4 - 7.1 AVERAGE RISK 7.1 - 11.0 MODERATE RISK >11.0 HIGH RISKPerformed By: #### LIVER, LIPID #### [facility] [address] [place] [address] Dr. Lauryn ChapmanCholesterol [Mass/Vol]106 mg/dLNormal<=200The [facility] Comment on above:Performed By: #### LIVER, LIPID #### [facility] [address] [place] [address] Dr. Lauryn ChapmanCholesterol in HDL [Mass/Vol]33 mg/dLCritically lsy91-69Wwx [facility] SystemComment on above:Performed By: #### LIVER, LIPID #### [facility] [address] [place] [address] Dr. Lauryn ChapmanCholesterol in LDL [Mass/Vol]30.2 mg/dLMiddletown HospitalComment on above:Performed By: #### LIVER, LIPID #### [facility] [address] [place] [address] Dr. Lauryn Lopezesterruss.total/Cholesterol in HDL [Mass ratio]3.2 {ratio} NormalThe [facility] SystemComment on above:Performed By: #### LIVER, LIPID #### [facility] [address] [address] [address] Lauryn Padilla NORMAL> or = 60 mg/dl - LOW CARDIOVASCULAR RISK <40 mg/dl - HIGH CARDIOVASCULAR RISKMiddletown HospitalComformerly [facility] on above:Performed By: #### LIVER, LIPID #### [facility] [address] [place] [address] Dr. Lauryn Solares CALC NORMALSEE BELOWMiddletown HospitalComment on above:Result Comment: <100 mg/dl OPTIMAL 100 - 129 mg/dl NEAR OR ABOVE OPTIMAL 130 - 159 mg/dl BORDERLINE HIGH 160 - 189 mg/dl HIGH >190 mg/dl VERY HIGH Performed By: #### LIVER, LIPID #### [facility] [address] [place] [address] Dr. Lauryn ChapmanTriglyceride [Mass/Vol]214 mg/dLCritically high<=150The [facility] on above:Performed By: #### LIVER, LIPID #### [facility] [address] [place] [address] Dr. Lauryn Gates CALC42.8 mg/dLNoMercy Health Defiance HospitalComformerly [facility] on above: Performed By: #### LIVER, LIPID #### [facility] [address] [place] [address] Dr. Lauryn Vasquez PROFILEon 67-66-9561Sogaexq [Mass/Vol]3.6 g/dLNormal3.4-5.0 The [facility] on above:Performed By: #### LIVER, LIPID #### [facility] [address] [place] [address] Dr. Lauryn ChapmanAlbumin/Globulin [Mass ratio]1.1 {ratio}NormalThe [facility] on above:Performed By: #### LIVER, LIPID #### [facility] [address] [place] [address] Dr. Lauryn Sauceda [Catalytic activity/Vol]73 U/THxgemh03-121Tfl [facility] on above:Performed By: #### LIVER, LIPID #### [facility] [address] [place] [address] Dr. Lauryn Peck [Catalytic activity/Vol]48 U/UYlmiqx20-63Yck [facility] SystemComment on above:Performed By: #### LIVER, LIPID #### [facility] [address] [place] [address] Dr. Lauryn Bliss [Catalytic activity/Vol]24 U/TQbrzgl51-28SraCorey HospitalComment on above:Performed By: #### LIVER, LIPID #### [facility] [address] [place] [address] Dr. Lauryn MarianoI, CONJUGATED0.1 mg/dLNormal0.0-0.2The [facility] Comment on above:Performed By: #### LIVER, LIPID #### [facility] [address] [place] [address] Dr. Lauryn Marianoirubin [Mass/Vol]0.5 mg/dLNormal0.2-1.0[facility] Comment on above:Performed By: #### LIVER, LIPID #### [facility] [address] [place] [address] Dr. Lauryn ChapmanGlobulin (S) [Mass/Vol]3.4 g/dLNormalThe [facility] SystemComment on above:Performed By: #### LIVER, LIPID #### [facility] [address] [place] [address] Dr. Lauryn ChapmanProtein [Mass/Vol]7.0 g/dLNormal6.4-8.2The [facility] Comment on above:Performed By: #### LIVER, LIPID #### [facility] [address] [place] [address] Dr. Lauryn Bee METABOLIC PANELon 62-03-9530Oqqxqal [Mass/Vol]8.3 mg/dLLow 8.6-10.3The [facility] CampusComment on above:Order Comment: No: Do not add to previous drawPerformed By: #### [id number] #### [facility] [address] [place] [address], USAChloride [Moles/Vol]109 mmol/IWreo44-457Ktf [facility] CampusComment on above:Order Comment: No: Do not add to previous drawPerformed By: #### [id number] #### [facility] [address] [place] [address], USACO2 [Moles/Vol]20 mmol/IKww26-71Nxx [facility] CampusComment on above:Order Comment: No: Do not add to previous draw Performed By: #### [id number] #### [facility] [address] [place] [address], USACreatinine [Mass/Vol]0.76 mg/dLNormal0.70-1.30The [facility] CampusComment on above:Order Comment: No: Do not add to previous drawPerformed By: #### [id number] #### [facility] [address] [place] [address], USAGFR/1.73 sq M.predicted among blacks MDRD (S/P/Bld) [Vol rate/Area]mL/min/{1.73_m2}Normal>60The [facility] Comment on above:Order Comment: No: Do not add to previous drawPerformed By: #### [id number] #### [facility] [address] [place] [address], USAGFR/1.73 sq M.predicted among non-blacks MDRD (S/P/Bld) [Vol rate/Area]mL/min/{1.73_m2}Normal>60The [facility] Comment on above:Order Comment: No: Do not add to previous drawPerformed By: #### [id number] #### [facility] [address] [place] [address], USAGlucose [Mass/Vol]146 mg/zBKboe02-676Mxg [facility] CampusComment on above:Order Comment: No: Do not add to previous drawPerformed By: #### [id number] #### [facility] [address] [place] [address], USAPotassium [Moles/Vol]4.0 mmol/LNormal3.5-5.1The [facility] CampusComment on above:Order Comment: No: Do not add to previous drawPerformed By: #### [id number] #### [facility] [address] [place] [address], USASodium [Moles/Vol]136 mmol/XXucxto823-356Bim [facility] CampusComment on above:Order Comment: No: Do not add to previous drawPerformed By: #### [id number] #### [facility] [address] [place] [address], USAUrea nitrogen [Mass/Vol]12 mg/dLNormal7-25The [facility] CampusComment on above:Order Comment: No: Do not add to previous drawPerformed By: #### [id number] #### [facility] [address] [place] [address], USACBC COMPLETE BLOOD COUNTon 77-88-6567Zvnyejvorbe distribution width (RBC) [Ratio]16.8 %High11.5-15.0The [facility] CampusComment on above:Order Comment: No: Do not add to previous draw Performed By: #### [id number] #### [facility] [address] [place] [address], USAHematocrit (Bld) [Volume fraction]42.4 %Vinzei18.0-50.0The [facility] CampusComment on above:Order Comment: No: Do not add to previous drawPerformed By: #### [id number] #### [facility] [address] [place] [address], USAHemoglobin (Bld) [Mass/Vol]13.6 g/tFKfofng55.0-17.0The [facility] CampusComment on above:Order Comment: No: Do not add to previous drawPerformed By: #### [id number] #### [facility] [address] [place] [address], USAMCH (RBC) [Entitic mass]23.8 pgLow27.0-33.0The [facility] CampusComment on above:Order Comment: No: Do not add to previous drawPerformed By: #### [id number] #### [facility] [address] [place] [address], [facility]IL[facility] MEDICAL CENTERMCHC (RBC) [Mass/Vol]32.1 g/nFAtazmw41.0-35.0The [facility] CampusComment on above:Order Comment: No: Do not add to previous drawPerformed By: #### [id number] #### [facility] [address] [place] [address], [facility] (RBC) [Entitic vol]74.3 fLLow82.0-98.0The [facility] CampusComment on above:Order Comment: No: Do not add to previous drawPerformed By: #### [id number] #### [facility] [address] [place] [address], USANucleated RBC/100 WBC (Bld) [Ratio]0 %Normal0-0The [facility] CampusComment on above:Order Comment: No: Do not add to previous drawPerformed By: #### [id number] #### [facility] [address] [place] [address], USAPLAT WSK244 10*3/kIXcraat011-010Kjw [facility] CampusComment on above:Order Comment: No: Do not add to previous draw Performed By: #### [id number] #### [facility] [address] [place] [address], G[facility] REG[facility] MEDICAL CENTERRBC (Bld) [#/Vol]5.71 10*6/uLHigh4.20-5.70The [facility] CampusComment on above:Order Comment: No: Do not add to previous drawPerformed By: #### [id number] #### [facility] [address] [place] [address], USAWBC (Bld) [#/Vol]6.12 10*3/uLNormal4.00-10.60The [facility] CampusComment on above:Order Comment: No: Do not add to previous drawPerformed By: #### [id number] #### [facility] [address] [place] [address], USACardiovascular Lab Reporton [id number] Lab ReportUnChillicothe [facility] Medical Center Patient Name: Tiffanie Mcknight [facility] MR #: [id number] Physician: Akosua Saucedo, Department of M.D. Medicine Service Date: 12/26/2021 Division of Birthdate: 1960 Cardiology Room #: [facility] Cardiovascular Services [facility] [address] [place] [address] Cardiovascular Laboratory Report FINAL IMPRESSIONS: 1. Severe [...] the left radial artery was obtained. A 6-Sinhala glide sheath was inserted without difficulty. Bilateral selective coronary angiography was performed using JL4 and JR4 catheters. After reviewing the images, it was elected to proceed with the physiological assessment of the left anterior descending. A 6-Sinhala XB3.5 guide catheter was advanced over a [...] stress test. No (more content not included)... NormalThe [facility] Vital Signs Date TimeVital SignValuePerforming HpixawmufVcwrjtuf20-58-7974 08:07-0400Body .88 cmRaya Dye MD Work Phone: [phone]1990[facility]06-30-2025 08:07-0400 Body mass index (BMI) [Ratio]30.9 kg/w1ZhfpfgwRaya Dye MD Work Phone: 1([phone])[address] [place], [place] [address]6-30-2025 08:07-0400 Body .3 kgRaya Dye MD Work Phone: [phone])[facility]1990[facility]06-30-2025 08:07-0400 Diastolic blood ufezychy81 mm[Hg]Raya Dye MD Work Phone: 1(514)[address] [place], [place] 232[address]6-30-2025 08:07-0400 Heart rate65 /Alma Dye MD Work Phone: 1(419)[facility]1990[facility]06-30-2025 08:07-0400 Respiratory rate18 /Alma Dye MD Work Phone: 1(419)[facility]1990[facility]06-30-2025 08:07-0400 SaO2% (BldA) [Mass fraction]98 %Raya Dye MD Work Phone: 1(384)[address] [place], [place] 2322306-30-2025 08:07-0400 Systolic blood bczfhbyl278 mm[Hg]Raya Dye MD Work Phone: 1(314)[address] [place], [place] [address]3-03-2025 08:40-0500 Body cicrll240.88 cmMer[facility]03-03-2025 08:40-0500Body mass index (BMI) [Ratio]34.2 kg/c3TkwhjchqvMercy Health Lor[facility] Hospital03-03-2025 08:40-0500Body mnecgo823.3 kgMercy Health [facility] Hospital03-03-2025 08:40-0500Diastolic blood ipilcgzd36 mm[Hg][facility] 12-20-2024 08:40-0500Heart rate63 /minMercy Health Lorain Hospital 12-20-2024 08:40-0500Respiratory rate18 /minMercy Health Lorain Hospital 12-20-2024 08:40-6807JeM3% (BldA) [Mass fraction]98 %[facility]03-03-2025 08:40-0500Systolic blood qodxfetl744 mm[Hg][facility]05-29-2024 08:23-0400Body ixmbpc306.88 cmMercy Health Lor[facility] Hospital05-29-2024 08:23-0400Body mass index (BMI) [Ratio]35.4 kg/m2 [facility]05-29-2024 08:23-0400Body ytxduz736.5 kg [facility]05-29-2024 08:23-0400Diastolic blood ovgvsonc97 mm[Hg][facility]05-29-2024 08:23-0400Heart rate67 /min [facility]05-29-2024 08:23-0400Respiratory rate18 /min [facility]05-29-2024 08:23-9273BuR2% (BldA) [Mass fraction]98 %[facility]05-29-2024 08:23-0400Systolic blood cglfjbgo884 mm[Hg][facility]02-22-2024 10:57-0500 Body rkglbe582.88 cmMercy Health [facility] Hospital02-22-2024 10:57-0500Body mass index (BMI) [Ratio]36 kg/y2FymtwbpdrMercy Health Lorain Hospital02-22-2024 10:57-0500Body zuddwv669.4 kgMercy Health Lor[facility] Hospital02-22-2024 10:57-0500Diastolic blood dybqcqlz25 mm[Hg][facility] 12-11-2023 10:57-0500Heart rate66 [facility] 12-11-2023 10:57-0500Respiratory rate18 /[facility] 12-11-2023 10:57-9702ArB7% (BldA) [Mass fraction]98 %[facility]02-22-2024 10:57-0500Systolic blood chkifjgo701 mm[Hg][facility]11-14-2023 10:15-0500Body ihmquf133.88 cmDeyousif Renterialy Other [employer] Other 11-14-2023 10:15-0500Body mass index (BMI) [Ratio] 37.85 kg/s6Instjhwyousif Renterialy Other [employer] Other 11-14-2023 10:15-0500Body xsbihq689.6 kgDeyousif Renterialy Other [employer] Other 11-14-2023 10:15-0500Diastolic blood ocupgnxa21 mm[Hg] Belkis Dexterly Other [employer] Other 11-14-2023 10:15-0500Respiratory rate18 /minDeborah Scally Other [employer] Other 11-14-2023 10:15-1660CvT8% (BldA) [Mass fraction]97 % Belkis Scally Other [employer] Other 11-14-2023 10:15-0500Systolic blood dzjrwitt975 mm[Hg] Belkis Scally Other [employer] Other 10-04-2023 08:45-0400Body ufdeck709.88 cmDeyousif Renterialy Other [employer] Other 10-04-2023 08:45-0400Body mass index (BMI) [Ratio] 37.85 kg/m2WofpzznBelkis Rosas Other [employer] Other 10-04-2023 08:45-0400Body ebndpg078.6 kgDeyousif Rosas Other [employer] Other 10-04-2023 08:45-0400Diastolic blood aybmgxrh48 mm[Hg] Belkisyu Renterialy Other [employer] Other 10-04-2023 08:45-0400Respiratory rate18 /minDeborargoelio Renterialy Other [facility] [employer] Other 10-04-2023 08:45-8806CrD4% (BldA) [Mass fraction]98 % Belkisyu Renterialy Other [facility] [employer] Other 10-04-2023 08:45-0400Systolic blood qqmitigh709 mm[Hg] Belkisyu Renterialy Other [employer] Other Encounters Encounter DateEncounter [facility] ProviderFacilityStart: 04-18-2025 End: 07-90-4927hpsgsegdtvCsnmmnt M Hoy MD Work Phone: [facility] Work Phone: Start: 04-18-2025 End: 58-21-6332Qoqzumg encounter procedureTejasyousif Rosas [facility] Work Phone: Start: 12-20-2024 End: 82-78-4135grslolwoihJlgisrrpwVeterans Health Administration Work Phone: Start: 12-20-2024 End: 28-95-0692Kuxtlma encounter procedureNov[facility] Work Phone: Start: 11-15-2024 End: 73-22-1945lmivrmvdtbLHASLakeHealth Beachwood Medical Centertart: 03-17-2024 End: 48-76-4214yoplkrrvfjKkfhjzxlbVeterans Health Administration Work Phone: Start: 03-17-2024 End: 31-59-7908Nwratrg encounter procedureNovant Health [facility] Work Phone: Start: 12-11-2023 End: 13-39-5077tfblcqtonvBjjgatczvOhioHealth [facility] Center Work Phone: Start: 12-11-2023 End: 97-27-2960Hygwfct encounter procedureNovant Health Presbyterian Medical Center Physician GroupMEADOWVIEW PS[facility]ATR[facility] Work Phone: Start: 09-02-2023(DM) DiabetesBelkis Richards [facility] Care ClinicStart: 09-02-2023 End: 96-32-1717lzrqrdbkaeZrjtwxu M HoyNorth [employer] Other Start: 07-24-2023 End: 19-25-9351xvmmsckiraDzugbsx Scally Other [employer] Other Start: 09-58-3758Wbqltwzsn encounterDeRoger [facility] Coordinated Care ClinicStart: 07-23-2023(DM) DiabetesTejasRoger Williams Medical Center Coordinated Care ClinicStart: 07-23-2023 End: 86-63-7410fhdmcgjdwbPsgzhiv Scally Other [employer] Other Start: 06-03-2023 End: 99-73-3891nqhlksefojWvgmpnr Scally Other [employer] Other Start: 66-89-1145Ozduophar encounterDeTrinity Health Care ClinicStart: 11-71-9523Jllhrebpc for general adult medical examination without abnormal findingsDR RAYA HOY .The [facility] Hospitaltart: 02-18-2023 End: 19-05-4674qikublttjjEA RAYA HOY .Facility:W0Giutw: 02-18-2023 End: 28-68-4378Gsyuwnjnz for general adult medical examination without abnormal findingsDR RAYA HOY .Facility:N5Qoxvc: 02-12-2023 End: 46-10-6701fidekfkjtvDJ RAYA HOY .Facility:X5Wkczw: 11-20-2022 End: 28-83-4539lashfxqxudVPKHVIM BOESFacility:S1Oinga: 10-16-2022 End: 37-88-0853ieggozjponNDZTQCJ BOESFacility:H2Dhguj: 08-28-2022 End: 19-89-5322hmfipfsvopMJ EHAB ELTAHAWHenriettaFacility:X4Gdvnc: 43-01-4747opuhbplpwg DR AKOSUA BLUEHAWHenriettaFacility:Q3Otmvj: 12-26-2021 End: 48-83-0669npswcpdakqCCDT A ELTAHAWYFacility:[facility] Procedures DateProcedureProcedure DetailPerforming ClinicianStart: 69-21-0402HMA screening DR AKOSUA MATIASYComment on above:Performed By: #### PSASC #### [facility] [address] [place] [address] Dr. Lauryn Chapman Plan of Treatment DateCare ActivityDetailAuthorComprehensive metabolic 1999 panel - Serum or [facility] 1999 panel - Serum or [facility]Com[facility] metabolic 1999 panel - Serum or [facility] Payers DatePayer CategoryPayerPolicy [id number] Health [id number] Health [id number] 2.16.84[id number] 2.16.840.1.120466.3.57[id number] 2.16.840.1.575855.3.57[id number] 2..840.1.410593.3.57[id number] 2..840.1.220561.3.57[id number] 2..840.1.401975.3.57[id number] 2..840.1.831763.3.57[id number] 2..840.1.948015.3.579.2.593Private Health [id number] 2.1[id number] 2..840.1.906289.3.579.2.531 Social History DateTypeDetailFacilitySex Assigned At [facility] [employer] Other Start: 23-24-6598Sjb [facility]23 End: 36-46-9894Ywunqcn smoking status NHISNever smoked tobacco (finding) [facility]: 30-06-6009KodXduc (finding)[facility] Medical Equipment Procedure CodeEquipment CodeEquipment Original TextEquipment IdentifierDates Start: 16-05-8087cvuyjoj (Comfort Touch Ult Thin Lancets)Start: 12-10-2023 lancets (Comfort Touch Ult Thin Lancets)Start: 45-84-1609agalraz (Comfort Touch Ult Thin Lancets)Start: 32-29-1690Wqmky Sugar Diagnostic (Onetouch Ultra Test) stripStart: 02-12-1367Iyavz Sugar Diagnostic (Onetouch Ultra Test) stripStart: 43-38-8335pltmyux (Comfort Touch Ult Thin Lancets)Start: 61-22-2898Zlbajab (Comfort Touch Ult Thin Lancets) 31 gauge miscStart: 23-63-7273Rntbg Sugar Diagnostic (Onetouch Ultra Test) stripStart: 06-28-2024 End: 76-85-6532Zcxvqyw (Comfort Touch Ult Thin Lancets) 31 gauge miscStart: 10-04-2024 End: 55-65-8396Hvqskha miscStart: 10-04-2024 End: 64-91-4997Mhnfp Sugar Diagnostic (Onetouch Ultra Test) stripStart: 81-65-3237Hdwcf Sugar Diagnostic (Onetouch Ultra Test) stripStart: 12-20-2024 Blood Sugar Diagnostic (Onetouch Ultra Test) stripStart: 45-72-1134Iubcges (Comfort Touch Ult Thin Lancets) 31 gauge miscStart: 69-81-7236Hlxrxni [place] Start: 15-65-7919Sfdmp Sugar Diagnostic (Onetouch Ultra Test) stripStart: 06-28-2024 End: 32-19-0181Nnwlc Sugar Diagnostic (Onetouch Ultra Test) stripStart: 06-28-2024 End: 28-14-8426osixeir (Comfort Touch Ult Thin Lancets)Start: 12-10-2023 End: 13-61-4839Htmwaav (Comfort Touch Ult Thin Lancets) 31 gauge miscStart: 10-04-2024 End: 52-67-6988Qiwnbxo miscStart: 10-04-2024 End: 30-81-6646Zrjpcei miscStart: 12-22-2024 End: 52-99-0209Vxozopw miscStart: 12-20-2024 End: 40-51-5484Zlyephz miscStart: 12-20-2024 End: 12-22-2024 Clinical Notes 06-03-2023 to 11-15-2024 Note Date & [id number] [facility] Note Chief Complaint: Patient here for 1 year follow up CAD, hypertension, and dyslipidemia. Had routine labs with lipid panels in April and Aug 2024. He is no longer taking atorvastatin, as he is now taking simvastatin. He isn't sure why, but thinks his PCP and barge loader changed this. Patient remains very active and goes to the gym 4 days a week. Denies chest pain, SOB, and palpitations. Says his BP was 132/83 this morning before the gym. HPI: Tiffanie Mcknight is a 64 y.o. male He continues to lose weight and is now seeing an barge loader. He started him on Jardiance. Still goes [...] artery disease including aspirin, (more content not included)...[facility]11-14-2023 Evaluation note* Encounter Date Diagnosis Assessment Notes Treatment Notes Treatment Clinical Notes Aug, Vitamin D deficiency (ICD-10 - E 55.9) Aug,Type 2 diabetes mellitus with hyperglycemia, without long-term current use of insulin (ICD-10 - E11.65) 1. Improved, a Type 2 diabetes with A1c of 6.9% from 7.3% 2. Tolerating Jardiance and metformin continue, could consider GLP for concommitant weight loss andglycemic control. Defers for now, would benefit from [...] times per day the week before next appo intment. 3. Patient is alert, oriented and receptive [...] diabetes, progressive beta cell , concepts of basal/bolus/corrective insulin requirements. b. Nutrition: Concepts of healthy [...] or sores that do not appear to behealing. 4. Meter: Plan to check blood glucose: Please check blood glucose levels 1-4 times/day. Back to back meals reveal effectiveness of bolus dosing. 5. [facility] Contact office if any issues or concerns with patterns of hypoglycemia, hyperglycemia, or diabetes medication issues. 6. Prescriptions: Patient uses [address] Aug,Hyperlipidemia, unspecified hyperlipidemia type (ICD-10 - E78.5)per report STATIN d/c per Cardiology. Icosapent Ethyl cost prohibitive, off x 1 mos. Statin reeinitation beneficial for prevention with diabetes diagnosis per ADA guidelines, escpecially in setting of CVD. UTD information on triglycerinde management given. Hypertriglyceridemia, Patient information, Beyond the Basics Aug,Hypertension, unspecified type (ICD-10 - I10)reasonable control today, discussed goal of <130/80, on ARB. and carvedolol, historically chlorth alidone. Hx of lisinopril, d/c d/t persistent sinus issues. Encouraged him to bring ambulatory monitor to any clinic appt to validate, and assist with placement Aug,ietary counseling and surveillance (ICD-10 - Z71.3)interested in weight loss, has had non sustainable success in past Aug,MI 37.0-37.9, adult (ICD-10 - Z68.37) Aug,Hypertriglyceridemia (ICD-10 - E78.1)managed by cardiology, rx grad icosepent cost prohibitive historically. UTD for patient hypertriglyceride provided and reviewed. [employer] Other 10-04-2023 Evaluation note* Encounter Date Diagnosis Assessment Notes Treatment Notes Treatment Clinical Notes Jul, Vitamin D deficiency (ICD-10 - E 55.9) Jul,Type 2 diabetes mellitus with hyperglycemia, without long-term [...] times per day the week before next appo intment. Could consider fructosamine to determine if improvement [...] diabetes, progressive beta cell , concepts of basal/bolus/corrective insulin requirements. b. Nutrition: Concepts of healthy [...] or sores that do not appear to behealing. 4. Meter: Plan to check blood glucose: Please check blood glucose levels 1-4 times/day. Back to back meals reveal effectiveness of bolus dosing. 5. [facility]. Contact office if any issues or concerns with patterns of hypoglycemia, hyperglycemia, or diabetes medication issues. 6. Prescriptions: Patient uses [employer] Jul,Hyperlipidemia, unspecified hyperlipidemia type (ICD-10 - E78.5)per report STATIN d/c per Cardiology. Icosapent Ethyl cost prohibitive, off x 1 mos. Statin reeinitation beneficial for prevention with diabetes diagnosis per ADA guidelines, escpecially in setting of CVD. UTD information on triglycerinde management given. Hypertriglyceridemia, Patient information, Beyond the Basics Jul,Hypertension, unspecified type (ICD-10 - I10)reasonable control today, discussed goal of <130/80, on ARB. and carvedolol, historically chlorth alidone. Hx of lisinopril, d/c d/t persistent sinus issues. Encouraged him to bring ambulatory monitor to any clinic appt to validate, and assist with placement Jul,ietary counseling and surveillance (ICD-10 - Z71.3)interested in weight loss, has had non sustainable success in past Jul,MI 37.0-37.9, adult (ICD-10 - Z68.37) [employer] Other 08-15-2023 Evaluation note* Encounter Date Diagnosis Assessment Notes Treatment Notes Treatment Clinical Notes May, Type 2 diabetes luis manuel itus with hyperglycemia, without long-term current use of insulin (ICD-10 - E11.65) [employer] Other Chief complaint+Reason for visit Narrative* Chief Complaint DMN f/u-METER Reason for Visit BMI 37.0-37.9, adult Dietary counseling and surveillance Hyperlipemia Hypertension Hypertriglyceridemia Hypothyroidism Type 2 diabetes mellitus Type 2 diabetes mellitus with hyperglycemia Vitamin D deficiency [facility] Work Phone: Evaluation noteNo InformationNort Printed Piece Other Evaluation noteNo assessment information available [facility] Work Phone: Evaluation note* Diagnosis Onset Date Resolution Status Type 2 diabetes mellitus acute [facility] Work Phone: Evaluation note* Diagnosis Onset Date Resolution Status BMI 37.0-37.9, adult acuteDietary counseling and surveillanceacuteHyperlipemiaacuteHypertensionacute HypertriglyceridemiaacuteHypothyroidismacuteType 2 diabetes mellitusacuteType 2 diabetes mellitus with hyperglycemiaacuteVitamin D deficiencyacute [facility] Work Phone: Evaluation note* Diagnosis Onset Date Resolution Status Admit Date BMI 37.0-37.9, adult acuteMarch 2024 8:21amDietary counseling and surveillanceacuteAs[facility] 20[facility] 8:21amHyperlipemiaacute[facility] 8:21amHypertensionacuteMar2024 8:21amHypertriglyceridemiaacuteAs[facility] 2024 8:21amHypothyroidismacute [facility] 2024 8:21amType 2 diabetes mellitusacuteAs[facility]ab[facility] 2024 8:21amType 2 diabetes mellitus with hyperglycemiaacuteAs[facility] 2024 8:21amVitamin D deficiencyacuteDec 2024 8:21am [facility] Work Phone: Evaluation note* Diagnosis Onset Date Resolution Status Admit Date BMI 37.0-37.9, adult acuteJune 2024 8:05amDietary counseling and surveillanceacuteApril 18, 2025 8:05amHyperlipemiaacuteApril 18, 2025 8:05amHypertensionacuteApril 18, 2025 8:05amHypertriglyceridemiaacuteApril 18, 2025 8:05amHypothyroidismacute April 18, 2025 8:05amType 2 diabetes mellitusacuteApril 18, 2025 8:05amType 2 diabetes mellitus with hyperglycemiaacuteApril 18, 2025 8:05amVitamin D deficiencyacuteApril 18, 2025 8:05am [facility] Work Phone: History general Narrative - Reported* Type Description Date Medical History Hypothyroidism Medical Historyhigh blood pressureMedical Historyhigh triglyceridesSurgical [id number] Historyexploratory [id number] History cardiac [id number] HistoryAbd/ chest [id number] [facility] [employer] Other Reason for referral (narrative)No reason for referral information availableAultman Alliance [facility] Hospital Work Phone: Reason for visit NarrativeDM, DISCUSS YEARLY DIABETIC EYE EXAMS, UMIC TODAY, NEEDS FOOT CHECK, Self Referral Type [address] [place] [address] [employer] Other Reason for visit NarrativeDM, DISCUSS YEARLY DIABETIC EYE EXAMS, Self Referral Type [address] [place] [address] [employer] Other Summary Purpose Family History Relationship Condition Age at Onset Recorded Date/T solo brother Heart disease Unknown HypertensionUnknownDiabetes mellitusUnknownfatherDiabetes mellitusUnknownHeart diseaseUnknownNot SpecifiedHeart diseaseUnknown Relationship Condition Age at Onset Recorded Date/T solo brother Heart disease Unknown HypertensionUnknownDiabetes mellitusUnknownfatherDiabetes mellitusUnknownHeart diseaseUnknownDeceasedUnknownNot SpecifiedHeart diseaseUnknown Relationship Condition Age at Onset Recorded Date/T solo brother Heart disease Unknown HypertensionUnknownDiabetes mellitusUnknownfatherDiabetes mellitusUnknownHeart diseaseUnknownDeceasedUnknownmotherHeart diseaseUnknown Advance Directives Advance Directive Response Recorded Date/ [...] 2024 8:2 1am Dietary counseling and surveillance [facility] 2024 8:21am Hyperlipemia December 20, 2024 8:21 [...] and content) DATE CREATED AUTHOR 01/01/2022 [facility] DATE CREATED AUTHOR AUTHOR'S ORGANIZ ATION 03/01/2023 [facility] DATE CREATED AUTHOR AUTHOR'S ORGANIZ ATION 12/18/2023 [facility] DATE CREATED AUTHOR AUTHOR'S ORGANIZ ATION 03/16/2024 [facility] DATE CREATED AUTHOR AUTHOR'S ORGANIZ ATION 11/16/2024 [facility] REASON FOR VISIT (unrecogniz ed section and content) Erx clarification for test s tripsLab result Goals (unrecognized section and content) Goals may be documented in a n alternate section Care Teams (unrecognized sec tion and content) Team Status: Active Member Role Status Dates Ryaa Dye MD Primary Care Provider Active Team Status: Inactive Member Role Status Dates Raya Dye MD Primary Care Provider Active Start: December 11, 2023 End: December 11eborah C Scally , APRNAttending ProviderActiveStart: December 11, 2023 End: December 11, 2023 Team Status: Inactive Member Role Status Briana Dye MD Primary Care Provider Active Start: March 17, 2024 End: March 17eborah C Scally , APRNAttending ProviderActiveStart: March 17, 2024 End: March 17, 2024 Team Status: Inactive Member Role Status Briana Dye MD Primary Care Provider Active Start: December 20, 2024 End: December 20, 2024Deborah C Scally , APRNAttending ProviderActiveStart: December 20, 2024 End: December 20, 2024 Team Status: Inactive Member Role Status Briana Dye MD Primary Care Provider Active Start: April 18, 2025 End: April 18, 2025Deborah C Scally , APRNAttending ProviderActiveStart: April 18, 2025 End: April 18, 2025 [...] BE BASED ON THE PRIMARY CLINICAL RECORDS. [facility] [email or web address] [facility]. provides no warranty or guarantee of the accuracy or completeness of information in this document.
[2025-10-17 09:06] LABS: Alanine Aminotransferase 30 U/L (16-63); Albumin Globulin Ratio 1.2; Albumin Level 3.8 g/dL (3.4-5.0); Alkaline Phosphatase 58 U/L (46-116); Anion Gap 10.9; Aspartate Amino Transferase 14 U/L (15-37); Blood Urea Nitrogen 21.0 mg/dL (7.0-18.0); Calcium 9.1 mg/dL (8.5-10.1); Carbon Dioxide 30.1 mmol/L (21.0-32.0); Chloride 104 mmol/L (98-107); Cholesterol 112 mg/dL (<=200); Estimated GFR (African America >60 (>=60 mL/min/1.73m^2); Estimated GFR (Non-African Ame >60 (>=60 mL/min/1.73m^2); Globulin 3.2 g/dL; Glucose 117 mg/dL (74-106); HDL Cholesterol 41 mg/dL (40-60); Potassium 4.0 mmol/L (3.5-5.1); Sodium 141 mmol/L (136-145); Total Protein 7.0 g/dL (6.4-8.2); Triglycerides 136 mg/dL (<=150); VLDL CHOLESTEROL 27.2 mg/dL
[2025-10-18 04:07] LABS: Vitamin B12 331 pg/mL (232-1245)
== END 2025-10-17 08:02 | disposition home or self-care (01) ==
LOC: LAB 08:03
PROVIDERS: PCP Family Medicine; Visit Provider Nurse Practitioner Family
DX: E11.65 Type 2 diabetes mellitus with hyperglycemia (principal); E55.9 Vitamin D deficiency, unspecified
CPT/HCPCS: 36415; 80053; 80061; 82043; 82306; 82570; 82607